=== PATIENT | male | born 1940 | race Caucasian/White ===

== ENCOUNTER → 2016-12-21 | Outpatient (CLI) | payer MEDICARE ==
[2016-12-21 11:26] LABS: ALT 46 U/L (21-72); AST 29 U/L (17-59); Alkaline Phosphatase 124 U/L (38-126); Anion Gap 10 mmol/L; Blood Urea Nitrogen 18 mg/dL (9-20); Calcium 9.3 mg/dL (8.4-10.2); Carbon Dioxide 30 mmol/L (22-30); Chloride 102 mmol/L (98-107); Cholesterol 166 mg/dL (<200); Glucose 98 mg/dL (74-99); HDL Cholesterol 75 mg/dL (40-60); Non-African American GFR(MDRD) >60 (>60 ml/min/1.73 sqM); Potassium 4.6 mmol/L (3.5-5.1); Sodium 142 mmol/L (137-145); Total Bilirubin 1.1 mg/dL (0.2-1.3); Total Protein 7.1 g/dL (6.3-8.2); Triglycerides 110 mg/dL (<150)
== END | disposition home or self-care (01) ==
LOC: LABWHC1 08:47
PROVIDERS: ATTEND Internal Medicine
DX: E03.9 Hypothyroidism, unspecified (principal); E78.5 Hyperlipidemia, unspecified; E55.9 Vitamin D deficiency, unspecified
CPT/HCPCS: 36415; 80053; 80061; 82306; 84439; 84443; 84481

== ENCOUNTER → 2016-12-21 | Outpatient (CLI) | payer MEDICARE ==
[2016-12-21 09:29] LABS: Anisocytosis Slight; Basophils % (A) 1 %; CH 25.7; CHCM 30.4; Eosinophils # (A) 0.3 k/uL (0-0.7); Eosinophils % (A) 5 %; HCT 34.3 % (39.0-53.0); HGB 10.4 gm/dL (13.0-17.5); Hypochromasia Marked; Luc # (Auto) 0.24; Luc % (Auto) 4; Lymphocytes # (A) 0.9 k/uL (1.0-4.8); Lymphocytes % (A) 16 %; MCH 25.8 pg (25.0-35.0); MCHC 30.4 g/dL (31.0-37.0); MCV 84.7 fL (80.0-100.0); Mean Platelet Volume 6.7; Monocytes # (A) 0.4 k/uL (0-1.0); Monocytes % (A) 8 %; Neutrophils # (A) 3.7 k/uL (1.3-7.7); Neutrophils % (A) 66 %; Poikilocytosis Slight; RBC 4.05 m/uL (4.30-5.90); RDW 16.1 % (11.5-15.5); WBC 5.6 k/uL (3.8-10.6); WBC (Perox) 5.86
== END | disposition home or self-care (01) ==
LOC: LABPAT 08:45
PROVIDERS: ATTEND Urology
DX: Z01.812 Encounter for preprocedural laboratory examination (principal); E03.9 Hypothyroidism, unspecified; R35.0 Frequency of micturition; N40.1 Benign prostatic hyperplasia with lower urinary tract symptoms
CPT/HCPCS: 36415; 80053; 80061; 82306; 84439; 84443; 84481; 85025; 87086

== ENCOUNTER 2016-12-30 06:03 | Day surgery (SDC) | payer MEDICARE ==
[2016-12-27 12:14] VITALS: BMI 25.3
[~2016-12-30 06:03] MED LIST: FAMOTIDINE 20 MG/2 ML VIAL IV PRN; GENTAMICIN 120 MG in SODIUM CHLORIDE 0.9% 100 ML IVPB ONE; HYDROmorphone 1 MG/ML 1 ML SYRINGE IVP PRN; LACTATED RINGERS 1,000 ML IV SCH; LIDOCAINE 1% 20 ML VIAL (10MG/ML) FOR IV START INTRADERMA PRN; ONDANSETRON 4 MG/2 ML VIAL IVP PRN; ceFAZolin 2 GM in SODIUM CHLORIDE 0.9% 100 ML IVPB ONE
[2016-12-30] MEDS ORDERED: diphenhydrAMINE 50 MG/ML 1 ML VIAL ONE (07:36)
[2016-12-30] MEDS ORDERED: MIDAZOLAM 2 MG/2 ML VIAL ONE (07:36)
[2016-12-30] MEDS ORDERED: PROPOFOL 10 MG/ML 20 ML VIAL IV ONE (07:36)
[2016-12-30 09:27] VITALS: TEMP 97
--- NOTE | 2016-12-30 09:32 | P.OP ---
Date of Procedure: 12/30/16 Preoperative Diagnosis: BPH with Obstruction Postoperative Diagnosis: Same Procedure(s) Performed: Cystoscopy, Bipolar Transurethral Resection of Prostate (TURP) Anesthesia: spinal Surgeon: Chadwick Cali Estimated Blood Loss (ml): 50 IV fluids (ml): 700 Pathology: other (Prostate tissue) Condition: stable Disposition: PACU Indications for Procedure: The patient is a 76-year-old white male with a history of BPH. He recently developed postoperative urinary retention. He is taking finasteride, along with tamsulosin 0.8 mg daily, but he continues to empty his bladder incompletely. In view of this, he has elected to undergo a TURP. Operative Findings: Bilobar BPH. Description of Procedure: The patient was taken in the operating room and placed in the dorsolithotomy position after being given a spinal anesthetic, The external genitalia was prepped and draped sterilely. The 25-Kittitian ACMI resectoscope sheath was introduced into the bladder. The bladder was inspected. Both ureteral orifices were of normal anatomic location and configuration, and both were well away from the vesical neck. No tumors or foreign bodies were seen. Examination of the prostate revealed complete obstruction with a bilobar configuration. Using the bipolar cutting loop, the lateral lobes were resected down to the surgical capsule. The floor of the prostate was then resected, proximal to the verumontanum. Lastly, and the remaining anterior tissue was resected. The prostatic fossa was then carefully examined. Any remaining apical tissue was carefully resected. The resection was carried down to the surgical capsule in all 4 quadrants. The prostatic fossa was then carefully examined, and any areas of bleeding were controlled with electrocautery. Excellent hemostasis was attained. The resectoscope was withdrawn into the bulbous urethra. The external urinary sphincter remained intact. The prostatic fossa was open. The [employer] evacuator was used to remove all prostate chips from the bladder. These were saved and sent for pathologic examination. The resectoscope was removed, and an 18 Kittitian Miller catheter was placed. The return was essentially clear. The patient tolerated the procedure well was taken to the recovery room in stable condition.
[2016-12-30 09:45] VITALS: RESP 16
[2016-12-30] MEDS ORDERED: LACTATED RINGERS 1,000 ML IV ONE (10:47)
[2016-12-30] MEDS ORDERED: PRAMIPEXOLE 0.5 MG TAB PO STA (11:40)
[2016-12-30 12:19] VITALS: BP 154/81; PULSE 86
== END 2016-12-30 12:55 | disposition home or self-care (01) ==
LOC: OR 06:03
PROVIDERS: ATTEND Urology
DX: N40.1 Benign prostatic hyperplasia with lower urinary tract symptoms (principal); N13.8 Other obstructive and reflux uropathy; R33.8 Other retention of urine; I10 Essential (primary) hypertension; E78.5 Hyperlipidemia, unspecified; J44.9 Chronic obstructive pulmonary disease, unspecified; E03.9 Hypothyroidism, unspecified; M19.90 Unspecified osteoarthritis, unspecified site; K21.9 Gastro-esophageal reflux disease without esophagitis; F32.9 Major depressive disorder, single episode, unspecified; G25.81 Restless legs syndrome; F41.9 Anxiety disorder, unspecified; I25.2 Old myocardial infarction; Z79.82 Long term (current) use of aspirin; Z79.1 Long term (current) use of non-steroidal anti-inflammatories (NSAID); Z79.899 Other long term (current) drug therapy; Z87.891 Personal history of nicotine dependence; Z98.52 Vasectomy status
CPT/HCPCS: 52601; 88305; J2250; J1200; J0690; J2405; J1580; J2704

== ENCOUNTER 2017-02-22 22:18 | Inpatient (IN) | payer MEDICARE ==
[2017-02-22 23:32] LABS: Anisocytosis Slight; Basophils # (A) 0.1 k/uL (0-0.2); Basophils % (A) 1 %; CH 22.5; CHCM 29.6; Eosinophils # (A) 0.2 k/uL (0-0.7); Eosinophils % (A) 4 %; HCT 20.7 % (39.0-53.0); HDW 4.09; Hypochromasia Marked; Luc # (Auto) 0.22; Luc % (Auto) 4; Lymphocytes # (A) 1.9 k/uL (1.0-4.8); Lymphocytes % (A) 33 %; MCH 22.5 pg (25.0-35.0); MCHC 29.5 g/dL (31.0-37.0); Mean Platelet Volume 6.3; Microcytosis Slight; Monocytes # (A) 0.4 k/uL (0-1.0); Monocytes % (A) 7 %; Neutrophils # (A) 2.9 k/uL (1.3-7.7); Neutrophils % (A) 51 %; Poikilocytosis Moderate; RBC 2.71 m/uL (4.30-5.90); RDW 16.6 % (11.5-15.5); WBC 5.7 k/uL (3.8-10.6); WBC (Perox) 5.75
[2017-02-22 23:37] LABS: HGB 6.1 gm/dL (13.0-17.5); MCV 76.2 fL (80.0-100.0)
[2017-02-22 23:41] LABS: ALT 24 U/L (21-72); AST 19 U/L (17-59); Alkaline Phosphatase 91 U/L (38-126); Anion Gap 8 mmol/L; Blood Urea Nitrogen 19 mg/dL (9-20); Calcium 8.9 mg/dL (8.4-10.2); Carbon Dioxide 28 mmol/L (22-30); Chloride 100 mmol/L (98-107); Glucose 98 mg/dL (74-99); Non-African American GFR(MDRD) >60 (>60 ml/min/1.73 sqM); Potassium 4.5 mmol/L (3.5-5.1); Sodium 136 mmol/L (137-145); Total Bilirubin 0.6 mg/dL (0.2-1.3); Total Protein 6.7 g/dL (6.3-8.2)
--- NOTE | 2017-02-22 23:58 | ED ---
Recheck HPI - General Chief Complaint: Recheck/Abnormal Lab/Rx Stated Complaint: poss blood transfusion Time Seen by Provider: 02/22/17 22:55 Source: patient, family Mode of arrival: wheelchair Limitations: no limitations - History of Present Illness Initial Comments: This patient is a 76-year-old man, sent in by his primary physician after his lab tests showed a hemoglobin of 6.1. The patient states that he had gone to see Dr. Gutierrez because he had been feeling fatigued, having a lot of exertional dyspnea. The patient does note that he had had some blood with bowel movements about 3-4 days ago but states that this had resolved and he was not really too concerned about it. He was called back to come in because his blood counts were low. Patient is denying fever or chills, chest pain, dyspnea, palpitations or syncope. He does have some exertional dyspnea. He denies abdominal pain. He is not currently having any bright red blood or dark tarry bowel movements. MD Complaint: abnormal lab -: hour(s) Returns Today for: Called Because of Abnormal Lab/Test Symptoms Since Prior Visit: no new symptoms - Related Data Home Medications Medication Instructions Recorded Confirmed ALPRAZolam [Xanax] 0.25 mg PO TID PRN 12/03/15 02/22/17 Albuterol Sulfate [Proair Hfa] 1 puff INHALATION RT-QID PRN 12/03/15 02/22/17 Aspirin 81 mg PO DAILY 12/03/15 02/22/17 Atorvastatin [Lipitor] 80 mg PO DAILY 12/03/15 02/22/17 Finasteride [Proscar] 5 mg PO DAILY 12/03/15 02/22/17 Gabapentin [Neurontin] 600 mg PO HS 12/03/15 02/22/17 Hydrochlorothiazide 12.5 mg PO DAILY 12/03/15 02/22/17 Mirtazapine 45 mg PO HS 12/03/15 02/22/17 Multivitamin [Men's Multi-Vitamin] 1 tab PO DAILY 12/03/15 02/22/17 Pantoprazole Sodium 20 mg PO DAILY 12/03/15 02/22/17 Pramipexole [Mirapex] 0.5 mg PO TID PRN 12/03/15 02/22/17 Ubidecarenone [Co Q-10] 200 mg PO DAILY 12/03/15 02/22/17 Levothyroxine Sodium [Levoxyl] 150 mcg PO DAILY 10/08/16 02/22/17 Ramipril 10 mg PO DAILY 10/08/16 02/22/17 Aclidinium [place] [Tudorza 1 puff INHALATION RT-BID 02/22/17 02/22/17 Pressair] FLUoxetine HCL [PROzac] 40 mg PO DAILY 02/22/17 02/22/17 Allergies Allergy/AdvReac Type Severity Reaction Status Date / Time Pepperoni AdvReac Nausea & Uncoded 02/22/17 23:15 Vomiting Review of Systems ROS Statement: Those systems with pertinent positive or pertinent negative responses have been documented in the HPI. ROS Other: All systems not noted in ROS Statement are negative. Constitutional: Denies: fever, chills Respiratory: Denies: cough, dyspnea, wheezes Cardiovascular: Reports: as per HPI, dyspnea on exertion. Denies: chest pain, palpitations, orthopnea, edema, syncope Gastrointestinal: Reports: as per HPI, hematochezia. Denies: abdominal pain, nausea, vomiting, diarrhea, constipation, melena Genitourinary: Denies: dysuria, hematuria Musculoskeletal: Denies: back pain Skin: Denies: rash Neurological: Denies: headache, weakness, numbness Psychiatric: Denies: anxiety Past Medical History Past Medical History: COPD, Eye Disorder, GERD/Reflux, Hyperlipidemia, Hypertension, Osteoarthritis (OA), Prostate Disorder, Thyroid Disorder Additional Past Medical History / Comment(s): Restless leg syndrome. NEUROPATHY LEGS. SVT(ABLATION DONE), HOME O2 2 LITER N/C. SL GLAUCOMA. HEMORRHOIDS. BPH W/ OBSTRUCTION. History of Any Multi-Drug Resistant Organisms: None Reported Past Surgical History: Adenoidectomy, Cardiac Ablation, Cholecystectomy, Orthopedic Surgery, Tonsillectomy Additional Past Surgical History / Comment(s): cardiac ablation for SVT, mole removed from neck, R elbow surgery (tennis elbow), colonoscopy, circumcism, Vasectomy, R testicle surgery for infection, bilateral carpal tunnel releases. Past Anesthesia/Blood Transfusion Reactions: Family History of Problems w/ Anesthesia Additional Past Anesthesia/Blood Transfusion Reaction / Comment(s): DAUGHTER TAKES LONG TIME TO AWAKEN. Past Psychological History: Anxiety, Depression Additional Psychological History / Comment(s): Pt 'S DAUGHTER KENNA LIVES WITH HIM AND OTHER FAMILY MEMBERS HELP OUT WELL. Smoking Status: Former smoker Past Alcohol Use History: Daily Additional Past Alcohol Use History / Comment(s): Pt states he started smoking at age 16 (1957)and quit . was a 1 ppd smoker. Past Drug Use History: None Reported - Past Family History Father Family Medical History: No Reported History Additional Family Medical History / Comment(s): Father was healthy and at age 84 yrs. Mother Family Medical History: Cancer Additional Family Medical History / Comment(s): Mother was healthy and in her 70's General Exam Limitations: no limitations General appearance: alert, in no apparent distress Head exam: Present: atraumatic, normocephalic Eye exam: Present: other (Conjunctival pallor). Absent: scleral icterus, conjunctival injection ENT exam: Present: mucous membranes moist, other ([place] pallor) Neck exam: Present: normal inspection Respiratory exam: Present: normal lung sounds bilaterally. Absent: respiratory distress, wheezes, rales, rhonchi, stridor Cardiovascular Exam: Present: regular rate, normal rhythm, normal heart sounds. Absent: systolic murmur, diastolic murmur, rubs, gallop GI/Abdominal exam: Present: soft. Absent: distended, tenderness, guarding, rebound, mass, pulsatile mass, hernia Extremities exam: Present: normal inspection, normal capillary refill. Absent: pedal edema, calf tenderness Back exam: Present: normal inspection. Absent: CVA tenderness (R), CVA tenderness (L) Neurological exam: Present: alert Skin exam: Present: warm, dry, intact, pallor. Absent: rash Course Vital Signs 02/22/17 22:37 Temperature 98.6 F Pulse Rate 78 Respiratory 20 Rate Blood Pressure 99/65 O2 Sat by Pulse 96 Oximetry Medical Decision Making - Lab Data Result diagrams: 02/22/17 23:03 02/22/17 23:03 Lab Results 02/22/17 02/22/17 02/22/17 Range/Units 23:03 23:03 23:03 WBC 5.7 (3.8-10.6) k/uL RBC 2.71 L (4.30-5.90) m/uL Hgb 6.1 L* D (13.0-17.5) gm/dL Hct 20.7 L (39.0-53.0) % MCV 76.2 L D (80.0-100.0) fL MCH 22.5 L (25.0-35.0) pg MCHC 29.5 L (31.0-37.0) g/dL RDW 16.6 H (11.5-15.5) % Plt Count 467 H (150-450) k/uL Neutrophils % 51 % Lymphocytes % 33 % Monocytes % 7 % Eosinophils % 4 % Basophils % 1 % Neutrophils # 2.9 (1.3-7.7) k/uL Lymphocytes # 1.9 (1.0-4.8) k/uL Monocytes # 0.4 (0-1.0) k/uL Eosinophils # 0.2 (0-0.7) k/uL Basophils # 0.1 (0-0.2) k/uL Hypochromasia Marked Poikilocytosis Moderate Anisocytosis Slight Microcytosis Slight PT (9.0-12.0) sec INR (<1.1) APTT (22.0-30.0) sec Sodium 136 L (137-145) mmol/L Potassium 4.5 (3.5-5.1) mmol/L Chloride 100 (98-107) mmol/L Carbon Dioxide 28 (22-30) mmol/L Anion Gap 8 mmol/L BUN 19 (9-20) mg/dL Creatinine 1.00 (0.66-1.25) mg/dL Est GFR (MDRD) Af Amer >60 (>60 ml/min/1.73 sqM) Est GFR (MDRD) Non-Af >60 (>60 ml/min/1.73 sqM) Glucose 98 (74-99) mg/dL Plasma Lactic Acid Rolan (0.7-2.0) mmol/L Calcium 8.9 (8.4-10.2) mg/dL Total Bilirubin 0.6 (0.2-1.3) mg/dL AST 19 (17-59) U/L ALT 24 (21-72) U/L Alkaline Phosphatase 91 (38-126) U/L Total Creatine Kinase 89 (55-170) U/L CK-MB (CK-2) 1.3 (0.0-2.4) ng/mL CK-MB (CK-2) Rel Index 1.5 Troponin I <0.012 (0.000-0.034) ng/mL Total Protein 6.7 (6.3-8.2) g/dL Albumin 3.9 (3.5-5.0) g/dL Blood Type Blood Type Recheck Antibody Screen Crossmatch Spec Expiration Date 02/22/17 02/22/17 02/22/17 Range/Units 23:03 23:03 23:32 WBC (3.8-10.6) k/uL RBC (4.30-5.90) m/uL Hgb (13.0-17.5) gm/dL Hct (39.0-53.0) % MCV (80.0-100.0) fL MCH (25.0-35.0) pg MCHC (31.0-37.0) g/dL RDW (11.5-15.5) % Plt Count (150-450) k/uL Neutrophils % % Lymphocytes % % Monocytes % % Eosinophils % % Basophils % % Neutrophils # (1.3-7.7) k/uL Lymphocytes # (1.0-4.8) k/uL Monocytes # (0-1.0) k/uL Eosinophils # (0-0.7) k/uL Basophils # (0-0.2) k/uL Hypochromasia Poikilocytosis Anisocytosis Microcytosis PT 10.3 (9.0-12.0) sec INR 1.0 (<1.1) APTT 19.2 L (22.0-30.0) sec Sodium (137-145) mmol/L Potassium (3.5-5.1) mmol/L Chloride (98-107) mmol/L Carbon Dioxide (22-30) mmol/L Anion Gap mmol/L BUN (9-20) mg/dL Creatinine (0.66-1.25) mg/dL Est GFR (MDRD) Af Amer (>60 ml/min/1.73 sqM) Est GFR (MDRD) Non-Af (>60 ml/min/1.73 sqM) Glucose (74-99) mg/dL Plasma Lactic Acid Rolan 1.1 (0.7-2.0) mmol/L Calcium (8.4-10.2) mg/dL Total Bilirubin (0.2-1.3) mg/dL AST (17-59) U/L ALT (21-72) U/L Alkaline Phosphatase (38-126) U/L Total Creatine Kinase (55-170) U/L CK-MB (CK-2) (0.0-2.4) ng/mL CK-MB (CK-2) Rel Index Troponin I (0.000-0.034) ng/mL Total Protein (6.3-8.2) g/dL Albumin (3.5-5.0) g/dL Blood Type O Positive Blood Type Recheck No Antibody Screen NEGATIVE Crossmatch See Detail Spec Expiration Date 02/25/2017 - 2303 - EKG Data -: EKG Interpreted by Me EKG shows normal: sinus rhythm, axis (Normal), intervals (Normal), QRS complexes (Normal), ST-T waves (Normal) Rate: normal (Rate 78 bpm) Interpretation: normal EKG Disposition Clinical Impression: Anemia Disposition: ADMITTED IP TO THIS [facility] Condition: Poor
[2017-02-23] LABS: Prothrombin Time 10.3 sec (9.0-12.0)
[2017-02-23 00:04] LABS: Partial Thromboplastin Time 19.2 sec (22.0-30.0)
[2017-02-23 00:10] LABS: Creatine Kinase 89 U/L (55-170)
[2017-02-23 00:23] LABS: Creatine Kinase MB 1.3 ng/mL (0.0-2.4); Troponin I <0.012 ng/mL (0.000-0.034)
[2017-02-23] MEDS ORDERED: ONDANSETRON 4 MG/2 ML VIAL IVP PRN (00:50)
[2017-02-23] MEDS ORDERED: NALOXONE 0.4 MG/ML 1 ML VIAL IV PRN (00:50)
[2017-02-23] MEDS ORDERED: ALBUTEROL NEBULIZED 2.5 MG/3 ML INHALATION PRN (00:52)
[2017-02-23] MEDS ORDERED: LORazepam 2 MG/ML SYRINGE IV STA ×2 (01:05→01:08)
[2017-02-23 03:06] VITALS: BMI 25.4
[2017-02-23] MEDS: SODIUM CHLORIDE 0.9% 1,000 ML IV SCH ×3 (04:51→21:10)
[2017-02-23] MEDS: ATORVASTATIN 80 MG TAB PO SCH (08:07)
[2017-02-23] MEDS: HYDROCHLOROTHIAZIDE 12.5 MG CAP PO SCH (08:08)
[2017-02-23] MEDS: LISINOPRIL 20 MG TAB PO SCH (08:08)
[2017-02-23] MEDS: LEVOTHYROXINE 75 MCG TAB PO SCH (08:08)
[2017-02-23] MEDS: PANTOPRAZOLE 40 MG/10 ML VIAL IV SCH (08:08)
[2017-02-23] MEDS: MULTIVITAMINS, THERA 1 EACH TAB PO SCH (08:08)
[2017-02-23] MEDS: FLUoxetine HCL 20 MG CAP PO SCH (08:08)
[2017-02-23] MEDS: FINASTERIDE 5 MG TAB PO SCH (08:09)
[2017-02-23] MEDS ORDERED: NON-FORMULARY DRUG (Ubidecarenone [Co Q-10] 200 MG) PO SCH (09:00)
[2017-02-23 09:57] LABS: Anisocytosis Slight; Basophils # (A) 0.1 k/uL (0-0.2); Basophils % (A) 1 %; CH 23.5; CHCM 29.9; Eosinophils # (A) 0.3 k/uL (0-0.7); Eosinophils % (A) 5 %; HCT 21.6 % (39.0-53.0); HDW 4.71; Hypochromasia Marked; Luc # (Auto) 0.17; Luc % (Auto) 3; Lymphocytes # (A) 1.2 k/uL (1.0-4.8); Lymphocytes % (A) 23 %; MCH 24.1 pg (25.0-35.0); MCHC 30.6 g/dL (31.0-37.0); MCV 78.5 fL (80.0-100.0); Mean Platelet Volume 6.5; Microcytosis Slight; Monocytes # (A) 0.4 k/uL (0-1.0); Monocytes % (A) 7 %; Neutrophils # (A) 3.3 k/uL (1.3-7.7); Neutrophils % (A) 61 %; Poikilocytosis Marked; RBC 2.75 m/uL (4.30-5.90); RDW 16.9 % (11.5-15.5); WBC 5.3 k/uL (3.8-10.6); WBC (Perox) 5.37
[2017-02-23 10:00] LABS: HGB 6.6 gm/dL (13.0-17.5)
--- NOTE | 2017-02-23 11:04 | P.CONS ---
History of Present Illness - Reason for Consult Consult date: 02/23/17 Anemia, GI bleed Requesting physician: Pedro Lorenz - History of Present Illness 76-year-old gentleman patient of Dr. Gutierrez with a past medical history of diverticulosis, remote peptic ulcer disease, CVA, TIA, O2 dependent COPD, BPH status post TURP December 2016, hyperlipidemia, hypertension, anxiety, depression, and cardiac arrhythmia. Patient presents with fatigue, weakness, dyspnea, and painless rectal bleeding over the last week burgundy in nature with a hemoglobin of 6.1. He received 1 unit of blood and current hemoglobin of 6.6. MCV 76. Platelet 467. INR 1.0. BUN 19. Creatinine 1.0. Upon review of medical records hemoglobin over the last year, averages between 10-13. He was evaluated by the GI service 1 year ago in regards to painless burgundy rectal bleeding felt to be diverticular in nature. Last colonoscopy was in 2011 with findings of moderate diverticulosis with no evidence of polyps. He has been taking intermittent NSAIDs/ibuprofen for arthritic pain as well as baby aspirin. Denies hematemesis, melena, hematuria. No weight loss or fever or chills. Review of Systems Constitutional: Denies fever, chills, sweats, weight gain, or loss. HEENT: Negative for migraines, blurred vision or loss, earaches, drainage, tinnitus, oral mucosal lesions, dysphagia, or odynophagia. Cardiac: Hyperlipidemia, hypertension, arrhythmia Negative for chest pain, arrhythmias, or palpitation. Respiratory: O2-dependent COPD Negative for shortness of breath, hemoptysis, cough, or sputum production. Gastrointestinal: See HPI for pertinent findings. Genitourinary: BPH. Negative for hematuria, urgency, frequency, polyuria, dysuria, or penile discharge. Musculoskeletal: Osteoarthritis Negative for muscle aches, swelling, arthritis, and arthralgias. Neurologic: Restless leg syndrome Negative for stroke or TIA. Endocrine: Negative for thyroid problems. Skin: Negative for rash or itching. Psychiatric: History for depression and anxiety All systems: negative (See HPI) Past Medical History Past Medical History: COPD, Eye Disorder, GERD/Reflux, Hyperlipidemia, Hypertension, Osteoarthritis (OA), Prostate Disorder, Thyroid Disorder Additional Past Medical History / Comment(s): Restless leg syndrome. NEUROPATHY LEGS. SVT(ABLATION DONE), HOME O2 2 LITER N/C. SL GLAUCOMA. HEMORRHOIDS. BPH W/ OBSTRUCTION. diverticulitis History of Any Multi-Drug Resistant Organisms: None Reported Past Surgical History: Adenoidectomy, Cardiac Ablation, Cholecystectomy, Orthopedic Surgery, Tonsillectomy Additional Past Surgical History / Comment(s): cardiac ablation for SVT, mole removed from neck, R elbow surgery (tennis elbow), colonoscopy, circumcism, Vasectomy, R testicle surgery for infection, bilateral carpal tunnel releases. Past Anesthesia/Blood Transfusion Reactions: Family History of Problems w/ Anesthesia Additional Past Anesthesia/Blood Transfusion Reaction / Comm: DAUGHTER TAKES LONG TIME TO AWAKEN. Past Psychological History: Anxiety, Depression Additional Psychological History / Comment(s): Pt 'S DAUGHTER KENNA LIVES WITH HIM AND OTHER FAMILY MEMBERS HELP OUT WELL. Smoking Status: Former smoker Past Alcohol Use History: Daily Additional Past Alcohol Use History / Comment(s): Pt states he started smoking at age 16 (1957)and quit . was a 1 ppd smoker. Past Drug Use History: None Reported - Past Family History Father Family Medical History: No Reported History Additional Family Medical History / Comment(s): Father was healthy and at age 84 yrs. Mother Family Medical History: Cancer Additional Family Medical History / Comment(s): Mother was healthy and in her 70's Brother(s) History Unknown: Yes Sister(s) Family Medical History: Osteoarthritis (OA) Medications and Allergies Home Medications Medication Instructions Recorded Confirmed Type ALPRAZolam [Xanax] 0.25 mg PO TID PRN 12/03/15 02/22/17 History Albuterol Sulfate [Proair Hfa] 1 puff INHALATION RT-QID PRN 12/03/15 02/22/17 History Aspirin 81 mg PO DAILY 12/03/15 02/22/17 History Atorvastatin [Lipitor] 80 mg PO DAILY 12/03/15 02/22/17 History Finasteride [Proscar] 5 mg PO DAILY 12/03/15 02/22/17 History Gabapentin [Neurontin] 600 mg PO HS 12/03/15 02/22/17 History Hydrochlorothiazide 12.5 mg PO DAILY 12/03/15 02/22/17 History Mirtazapine 45 mg PO HS 12/03/15 02/22/17 History Multivitamin [Men's Multi-Vitamin] 1 tab PO DAILY 12/03/15 02/22/17 History Pantoprazole Sodium 20 mg PO DAILY 12/03/15 02/22/17 History Pramipexole [Mirapex] 0.5 mg PO TID PRN 12/03/15 02/22/17 History Ubidecarenone [Co Q-10] 200 mg PO DAILY 12/03/15 02/22/17 History Levothyroxine Sodium [Levoxyl] 150 mcg PO DAILY 10/08/16 02/22/17 History Ramipril 10 mg PO DAILY 10/08/16 02/22/17 History Aclidinium [place] [Tudorza 1 puff INHALATION RT-BID 02/22/17 02/22/17 History Pressair] FLUoxetine HCL [PROzac] 40 mg PO DAILY 02/22/17 02/22/17 History Allergies Allergy/AdvReac Type Severity Reaction Status Date / Time Pepperoni AdvReac Nausea & Uncoded 02/22/17 23:15 Vomiting Physical Exam Vitals: Vital Signs Temp Pulse Pulse Resp BP BP Pulse Ox 02/23/17 08:00 97.2 F L 69 16 130/60 95 02/23/17 04:46 98.6 F 74 16 122/60 95 02/23/17 04:22 97.4 F L 79 18 143/70 94 L 02/23/17 02:56 98.3 F 78 16 92/47 98 02/23/17 02:26 97.3 F L 79 16 108/61 94 L 02/23/17 02:16 97.1 F L 77 18 96/50 94 L 02/23/17 01:10 85 16 121/66 93 L Intake and Output 02/22/17 02/23/17 02/23/17 22:59 06:59 14:59 Intake Total 310 600 Output Total 100 Balance 210 600 Intake: IV 600 Sodium Chloride 0.9% 1, 600 000 ml @ 100 mls/hr IV . Q10H [facility] Rx#:[id number] Blood Product 310 Rc As-1 Unit 310 [id number] Output: Urine 100 Other: Voiding Method Urinal Urinal Weight 80.5 kg General appearance: The patient is alert, oriented, in no acute distress. HET: Head is normocephalic and atraumatic. Pupils are equal and reactive. Oropharynx is clear without lesions. Neck: Supple without lymphadenopathy. Trachea midline. Heart: S1 S2. Lungs: No crackles or wheezes are heard. Slight diminishment in bases bilaterally. Abdomen: Soft, nontender, nondistended with bowel sounds. No peritoneal signs. No palpable organomegaly or masses. Extremities: Normal skin color and turgor. No cyanosis, rash, ulceration, clubbing, or edema. Radial and pedal pulses are 2/4 bilaterally. Neurological: No focal deficits. Strength and sensation are grossly intact. Results CBC & Chem 7: 02/23/17 09:15 02/22/17 23:03 Labs: Abnormal Lab Results - Last 24 Hours (Table) 02/23/17 Range/Units 09:15 RBC 2.75 L (4.30-5.90) m/uL Hgb 6.6 L* (13.0-17.5) gm/dL Hct 21.6 L (39.0-53.0) % MCV 78.5 L (80.0-100.0) fL MCH 24.1 L (25.0-35.0) pg MCHC 30.6 L (31.0-37.0) g/dL RDW 16.9 H (11.5-15.5) % Assessment and Plan (1) GI bleed Narrative/Plan: Suspect diverticular in nature however other pathology cannot be excluded including upper GI source. Status: Acute (2) Diverticulosis of colon Status: Acute (3) Symptomatic anemia Status: Acute (4) Acute blood loss anemia Status: Acute Plan: 1. EGD colonoscopy tomorrow. 2. CBC every 6 hours. 3. Blood transfusion to keep hemoglobin preferably greater than 8. 4. IV Protonix 40 mg daily. 5. Clear liquid diet today, nothing by mouth after midnight. The operator technician has discussed the risks, benefits and alternative therapies for the above-mentioned procedure and for both sedation/analgesia as well as necessary blood product administration, if indicated, as they pertain to this patient. The patient has indicated understanding and acceptance of the risks and procedures discussed. Thank you for this kind referral and the opportunity to participate in the care of your patient. This consultation was discussed with Dr. Park. The impression and plan of care have been directed as dictated.
[2017-02-23] MEDS: TIOTROPIUM 18 MCG/PUFF INHALER INHALATION SCH (11:11)
[2017-02-23 12:38] LABS: Anisocytosis Slight; Basophils # (A) 0.1 k/uL (0-0.2); Basophils % (A) 1 %; CH 23.5; CHCM 29.9; Eosinophils # (A) 0.3 k/uL (0-0.7); Eosinophils % (A) 5 %; HDW 4.68; Hypochromasia Marked; Luc # (Auto) 0.22; Luc % (Auto) 4; Lymphocytes # (A) 1.3 k/uL (1.0-4.8); Lymphocytes % (A) 24 %; MCH 23.5 pg (25.0-35.0); MCV 78.4 fL (80.0-100.0); Mean Platelet Volume 6.8; Microcytosis Slight; Monocytes # (A) 0.4 k/uL (0-1.0); Monocytes % (A) 8 %; Neutrophils # (A) 3.1 k/uL (1.3-7.7); Neutrophils % (A) 58 %; Poikilocytosis Marked; RBC 2.93 m/uL (4.30-5.90); RDW 16.8 % (11.5-15.5); WBC 5.3 k/uL (3.8-10.6); WBC (Perox) 5.56
[2017-02-23 12:39] LABS: HGB 6.9 gm/dL (13.0-17.5)
[2017-02-23] MEDS ORDERED: PEG 3350-NA SULF,BICARB,CL/KCL 4,000 ML BOTTLE PO ONE (16:00)
--- NOTE | 2017-02-23 17:29 | HP ---
DATE OF ADMISSION: 02/23/2017 CHIEF COMPLAINT: Weak, tired, dark stools. HISTORY OF PRESENTING COMPLAINT: This is a pleasant 76 -year-old patient of Dr. Leonardo Gutierrez with rather extensive medical history. Patient's chronic stable medical conditions include COPD, GERD, hyperlipidemia, hypertension, osteoarthritis, BPH, on home oxygen 2 liters for COPD , restless leg syndrome. Patient presented with black stools for last few days. Feels tired, dizzy, lightheaded. Denies any abdominal pain. Patient does take aspirin at home. The patient hemoglobin came back to be 6.1 and patient was ordered a unit of blood. The patient's daughter is at the bedside. REVIEW OF SYSTEMS: CONSTITUTIONAL: Weak and tired. HEENT: None except for decreased hearing. RESPIRATORY: Some shortness of breath. CARDIOVASCULAR: None. GASTROINTESTINAL: Black stools. GENITOURINARY: None. MUSCULOSKELETAL: Aches and pains in different joints. Dermatological: Some bruising. HEMATOLOGICAL: As above. LYMPHATICS: None. PSYCHIATRY: None. NEUROLOGICAL: None. PAST MEDICAL HISTORY: COPD, stroke, hyperlipidemia, hypertension, osteoarthritis, SVT ablation, home oxygen 2 liters, TIAs, benign prostatic hypertrophy, hypothyroidism, restless leg syndrome, peripheral neuropathy, BPH, diverticulitis. PAST SURGICAL HISTORY: Adenoidectomy, cardiac ablation, cholecystectomy, tonsillectomy, right elbow surgery, circumcision, vasectomy, the right testicle surgical infection, bilateral carpal tunnel release. Past psych history: Anxiety, depression. SOCIAL HISTORY: Patient lives with daughter Elisha. The patient started smoking the age of 16 in 1957, quit in August of last year, smoked a pack a day. HOME MEDICATIONS: 1. CO-Q10 1 mg a day. 2. Ramipril 10 mg p.o. daily. 3. Mirapex 0.5 p.o. t.i.d. p.r.n. 4. Protonix 20 mg p.o. daily. 5. Multivitamin 1 tablet p.o. daily. 6. Mirtazapine 145 mg p.o. q.h.s. 7. Synthroid 150 mcg p.o. daily. 8. Hydrochlorothiazide 5 p.o. daily. 9. Neurontin 600 mg p.o. q.h.s. 10. Proscar 5 mg p.o. b.i.d. 11. Lipitor 80 mg p.o. daily. 12. Aspirin 81 mg p.o. daily, 13. Chloride 1 puff q.4 q.i.d. p.r.n. 14. Albuterol 0.25 mg p.o. t.i.d. ALLERGIES: PEPPERONI. On examination, vital signs on presentation: Temperature 98.6, pulse 78, respirations 20, blood pressure 99/65, pulse ox 96% on 2 liters. GENERAL APPEARANCE: Average build, lying in bed, tired appearing. EYES: Pupils equal. Conjunctivae are pale. HEENT: External appearance of nose and ears normal. Oral cavity normal. NECK: JVD not raised. Mass not palpable. RESPIRATORY: Effort normal. LUNGS: Diminished breath sounds. CARDIOVASCULAR: First and second sounds normal. No edema. ABDOMEN: Soft, nontender. Liver and spleen not palpable. LYMPHATIC: No lymph nodes palpable in neck or axillae. PSYCHIATRY: Alert and oriented x3. Mood and affect somewhat low. INVESTIGATIONS: Potassium 5.7, hemoglobin 6.1, platelets of ( ), after 1 unit of blood repeat was 6.6. Potassium 4.5. BUN and creatinine are normal. ASSESSMENT: 1. Acute gastrointestinal bleed in a patient who does take a baby aspirin need to rule out gastric source. 2. Chronic obstructive pulmonary disease in an ex-smoker. 3. Gastroesophageal reflux disease. 4. Hyperlipidemia. 5. Gastroesophageal reflux disease. 6. Essential hypertension. 7. Primary osteoarthritis of multiple joints, bilateral. 8. Benign prostatic hypertrophy. 9. Chronic hypoxic respiratory failure on 2 liters of oxygen at home from underlying chronic obstructive pulmonary disease. 10. Restless leg syndrome. 11. CODE STATUS: FULL CODE. PLAN: Home medications are resumed. Patient's aspirin has been held. Patient will be put on PPI. Gastroenterology was consulted. Repeat endoscopy. Care was discussed with the patient and daughter at the bedside. Questions were answered. Prognosis guarded.
[2017-02-23] MEDS: PRAMIPEXOLE 0.5 MG TAB PO PRN (17:41)
[2017-02-23 18:44] LABS: Anisocytosis Slight; Basophils # (A) 0.1 k/uL (0-0.2); Basophils % (A) 1 %; CH 24.6; CHCM 30.6; Eosinophils # (A) 0.3 k/uL (0-0.7); Eosinophils % (A) 6 %; HCT 26.4 % (39.0-53.0); HDW 4.84; Hypochromasia Marked; Luc # (Auto) 0.13; Luc % (Auto) 3; Lymphocytes # (A) 1.3 k/uL (1.0-4.8); Lymphocytes % (A) 29 %; MCH 25.6 pg (25.0-35.0); MCHC 31.9 g/dL (31.0-37.0); MCV 80.2 fL (80.0-100.0); Mean Platelet Volume 7.2; Microcytosis Slight; Monocytes # (A) 0.3 k/uL (0-1.0); Monocytes % (A) 7 %; Neutrophils # (A) 2.5 k/uL (1.3-7.7); Neutrophils % (A) 54 %; Poikilocytosis Marked; RDW 16.8 % (11.5-15.5); WBC 4.5 k/uL (3.8-10.6)
[2017-02-23 18:52] LABS: HGB 8.4 gm/dL (13.0-17.5)
[2017-02-23] MEDS: MIRTAZAPINE 45 MG TABLET PO SCH (21:09)
[2017-02-23] MEDS: GABAPENTIN 300 MG CAP PO SCH (21:09)
[2017-02-23] MEDS: ALPRAZolam 0.25 MG TAB PO PRN (21:17)
[2017-02-24 01:25] LABS: Anisocytosis Slight; Basophils # (A) 0.1 k/uL (0-0.2); Basophils % (A) 3 %; CH 24.4; CHCM 30.8; Eosinophils # (A) 0.3 k/uL (0-0.7); Eosinophils % (A) 6 %; HCT 26.3 % (39.0-53.0); HDW 4.88; HGB 7.9 gm/dL (13.0-17.5); Hypochromasia Marked; Luc # (Auto) 0.19; Luc % (Auto) 4; Lymphocytes # (A) 1.6 k/uL (1.0-4.8); Lymphocytes % (A) 31 %; MCH 23.8 pg (25.0-35.0); MCHC 30.1 g/dL (31.0-37.0); Mean Platelet Volume 6.4; Microcytosis Slight; Monocytes # (A) 0.4 k/uL (0-1.0); Monocytes % (A) 7 %; Neutrophils # (A) 2.5 k/uL (1.3-7.7); Neutrophils % (A) 49 %; Poikilocytosis Marked; RBC 3.33 m/uL (4.30-5.90); RDW 16.8 % (11.5-15.5); WBC 5.1 k/uL (3.8-10.6); WBC (Perox) 5.28
[2017-02-24 06:39] LABS: Anisocytosis Slight; Aty Lym Flag Slight; Basophils % (A) 1 %; CH 24.4; CHCM 30.7; Eosinophils # (A) 0.3 k/uL (0-0.7); Eosinophils % (A) 7 %; HCT 24.7 % (39.0-53.0); HDW 4.89; HGB 7.6 gm/dL (13.0-17.5); Hypochromasia Marked; Luc # (Auto) 0.21; Luc % (Auto) 5; Lymphocytes # (A) 1.1 k/uL (1.0-4.8); Lymphocytes % (A) 23 %; MCH 24.4 pg (25.0-35.0); MCHC 30.7 g/dL (31.0-37.0); MCV 79.5 fL (80.0-100.0); Mean Platelet Volume 6.5; Microcytosis Slight; Monocytes # (A) 0.4 k/uL (0-1.0); Monocytes % (A) 8 %; Neutrophils # (A) 2.6 k/uL (1.3-7.7); Neutrophils % (A) 56 %; Poikilocytosis Marked; RDW 16.8 % (11.5-15.5); WBC 4.6 k/uL (3.8-10.6); WBC (Perox) 4.86
[2017-02-24 06:45] LABS: Anion Gap 7 mmol/L; Blood Urea Nitrogen 13 mg/dL (9-20); Calcium 8.7 mg/dL (8.4-10.2); Carbon Dioxide 28 mmol/L (22-30); Chloride 104 mmol/L (98-107); Glucose 77 mg/dL (74-99); Non-African American GFR(MDRD) >60 (>60 ml/min/1.73 sqM); Potassium 4.2 mmol/L (3.5-5.1); Sodium 139 mmol/L (137-145)
[2017-02-24] MEDS: SODIUM CHLORIDE 0.9% 1,000 ML IV SCH ×2 (06:49→13:02)
[2017-02-24] MEDS: PANTOPRAZOLE 40 MG/10 ML VIAL IV SCH (08:08)
[2017-02-24] MEDS: LEVOTHYROXINE 75 MCG TAB PO SCH (08:09)
[2017-02-24] MEDS: FLUoxetine HCL 20 MG CAP PO SCH (08:09)
[2017-02-24] MEDS: HYDROCHLOROTHIAZIDE 12.5 MG CAP PO SCH (08:09)
[2017-02-24] MEDS: ATORVASTATIN 80 MG TAB PO SCH (08:09)
[2017-02-24] MEDS: FINASTERIDE 5 MG TAB PO SCH (08:09)
[2017-02-24] MEDS: MULTIVITAMINS, THERA 1 EACH TAB PO SCH (08:09)
[2017-02-24] MEDS: LISINOPRIL 20 MG TAB PO SCH (08:11)
[2017-02-24] MEDS: TIOTROPIUM 18 MCG/PUFF INHALER INHALATION SCH (11:43)
[2017-02-24] MEDS: ALPRAZolam 0.25 MG TAB PO PRN (13:00)
[2017-02-24] MEDS ORDERED: IV FLUID CONTINUATION 1,000 ML IV ONE (14:16)
[2017-02-24] MEDS ORDERED: PROPOFOL 10 MG/ML 20 ML VIAL IV ONE (14:18)
[2017-02-24] MEDS ORDERED: fentaNYL (PF) 50 MCG/ML 2 ML AMP ONE (14:18)
[2017-02-24] MEDS ORDERED: MIDAZOLAM 2 MG/2 ML VIAL ONE (14:18)
--- NOTE | 2017-02-24 15:04 | P.PCN ---
Date of Procedure: 02/24/17 Procedure(s) Performed: Procedure: 1. Esophagogastroduodenoscopy and biopsy. 2. Total colonoscopy.. Preoperative diagnosis: Symptomatic anemia. Postoperative diagnosis: 1. Sliding hiatal hernia and short Garcia's esophagus but no obvious esophagitis or complicated reflux disease. 2. Mild gastritis. 3. Sigmoid diverticulosis. 4. Low-grade internal hemorrhoids. No active bleeding noted at the time of this exam. Preparation: GoLYTELY prep. Sedation: Was provided by anesthesia. Brief clinical history: The patient is a 76-year-old male with a past medical history of diverticulosis, remote peptic ulcer disease, CVA, TIA, O2 dependent COPD, BPH status post TURP December 2016, hyperlipidemia, hypertension, anxiety, depression, and cardiac arrhythmia, who presented with fatigue, weakness, dyspnea, and painless rectal bleeding over the last week burgundy in nature with a hemoglobin of 6.1 for which he was transfused. Baseline hemoglobin was between 10 and 13. Last colonoscopy in 2011 that showed diverticulosis. He has been taking intermittently NSAIDs for arthritic pain and baby aspirin but has no upper GI complaints or any hematemesis or melena. The details are summarized in the history and physical and dictated consultation and progress notes. Procedure: With the patient on his left lateral decubitus position and after informed consent and adequate sedation, I passed the Olympus-GIF 160 video upper endoscope the cricopharyngeus down the esophagus. GE junction was around 35-36 cm from the incisors and the tubular esophagus continues for another 3 cm or so defining a segment of short Garcia's esophagus. The esophagus proximal to the GE junction did not show any evidence of inflammation. There were no strictures or ulcers. The Garcia's segment was somewhat friable and there was some bleeding after the biopsies were obtained. There was a small sliding hiatal hernia then the endoscope was advanced to the rest of the stomach which was insufflated with air and inspected in detail including the retroflex view in the cardia. There was some mottling and erythema in the antrum but no ulcers or erosions. Pyloric channel, duodenal bulb, post bulbar area and descending duodenum appeared within normal limits. Because of his anemia, I obtained multiple biopsies from the duodenum in addition to biopsies from the antrum as well as biopsies from the Garcia's segment then the endoscope was withdrawn. I then proceeded with the colonoscopy. Perianal area did not show any fissures or fistulas. There were no masses felt on digital rectal examination. The Olympus CFQ 160L video colonoscope was then inserted in the rectum in the usual fashion and advanced to the cecum. There were a few scattered diverticular orifices in the sigmoid with no evidence of acute diverticulitis or strictures. The mucosa appeared healthy. There was no evidence of angiodysplasias or bleeding. I retroflexed the endoscope in the rectum before the endoscope was withdrawn. Low-grade internal hemorrhoids were noted but there was no bleeding. The patient tolerated the procedure well. Plan: The patient was reassured. I discussed with his family. Consideration can be given for a capsule endoscopy if he continues to manifest anemia and evidence of ongoing GI bleeding.
[2017-02-24] MEDS: PRAMIPEXOLE 0.5 MG TAB PO PRN (16:56)
[2017-02-24] MEDS: GABAPENTIN 300 MG CAP PO SCH (20:04)
[2017-02-24] MEDS: MIRTAZAPINE 45 MG TABLET PO SCH (20:04)
[2017-02-25 01:40] VITALS: PULSE 73
--- NOTE | 2017-02-25 07:45 | PN ---
DATE OF SERVICE: 02/24/2017 PRESENTING COMPLAINT: Weak, tired, experiencing dark stools. INTERVAL HISTORY: This is a pleasant 76-year-old gentleman who presented to the emergency department with black stools for the past few days. Today, patient appears pale, tired, dizzy, lightheaded. Family is at the bedside talking with the patient. Patient appears happy and conversant with family. Review of systems done for constitutional, cardiovascular, GI, pulmonary with relevant findings as above. CURRENT MEDICATIONS: Alprazolam, atorvastatin, fluoxetine, gabapentin, hydrochlorothiazide, levothyroxine, lisinopril, mirtazapine, multivitamin, ondansetron, pantoprazole, Mirapex, PHYSICAL EXAMINATION: VITAL SIGNS: Temperature 97.0, pulse 72, blood pressure 120/67, oxygen saturation 95 on 2 L nasal cannula, respirations 18. GENERAL APPEARANCE: Lying in bed pale tired appearing. EYES: Pupils equal. Conjunctivae are pale. NECK: JVD not raised. Mass not palpable. RESPIRATORY: Effort normal. LUNGS: Diminished breath sounds bilaterally. CARDIOVASCULAR: S1, S2 noted and normal. No edema. ABDOMEN: Soft, nontender. Liver and spleen not palpable. PSYCHIATRIC: Alert and oriented x3. Mood and affect somewhat low. INVESTIGATIONS: Hemoglobin 7.6 up from 6.1 after receiving 2 units of packed red blood cells. All other lab values within normal limits. Patient had an EGD and colonoscopy, which revealed on the EGD Garcia's esophagus, gastritis and hiatal hernia. The colonoscopy revealed sigmoid diverticulosis. ASSESSMENT: 1. Acute gastrointestinal bleed in a patient who does take a baby aspirin gastric source ruled out; see information dictated above. 2. Chronic obstructive pulmonary disease in an ex-smoker. 3. Gastroesophageal reflux disease, status post EGD; see dictated information above. 4. Hyperlipidemia. 5. Essential hypertension. 6. Primary osteoarthritis of multiple joints bilateral. 7. Benign prostatic hypertrophy. 8. Chronic hypoxic respiratory failure on 2 liters of oxygen at home with underlying conditions of obstructive pulmonary disease. 9. Restless leg syndrome. 10. CODE STATUS: FULL CODE. PLAN: EGD completed, GI source of bleeding ruled out. Colonoscopy also completed on 02/24/2017. See information dictated above. Plan of care was discussed with the patient and the daughter at the bedside during rounds. Questions were answered. Prognosis guarded. The history and physical was performed on the patient by me/nurse practitioner and attending/Dr. Lorenz. The relevant points of the history/physical/diagnosis/plan were discussed and are as dictated above.
[2017-02-25] MEDS: FINASTERIDE 5 MG TAB PO SCH (08:26)
[2017-02-25] MEDS: HYDROCHLOROTHIAZIDE 12.5 MG CAP PO SCH (08:26)
[2017-02-25] MEDS: ATORVASTATIN 80 MG TAB PO SCH (08:26)
[2017-02-25] MEDS: LISINOPRIL 20 MG TAB PO SCH (08:26)
[2017-02-25] MEDS: FLUoxetine HCL 20 MG CAP PO SCH (08:26)
[2017-02-25] MEDS: MULTIVITAMINS, THERA 1 EACH TAB PO SCH (08:26)
[2017-02-25] MEDS: PANTOPRAZOLE 40 MG/10 ML VIAL IV SCH (08:26)
[2017-02-25] MEDS: LEVOTHYROXINE 75 MCG TAB PO SCH (08:27)
[2017-02-25] MEDS: SODIUM CHLORIDE 0.9% 1,000 ML IV SCH (08:27)
[2017-02-25 09:10] VITALS: BP 139/60; RESP 14; TEMP 97.2
[2017-02-25 09:15] LABS: Anisocytosis Slight; CH 24.2; HCT 24.8 % (39.0-53.0); HDW 4.69; HGB 7.4 gm/dL (13.0-17.5); Hypochromasia Marked; MCH 24.1 pg (25.0-35.0); MCHC 29.9 g/dL (31.0-37.0); MCV 80.7 fL (80.0-100.0); Mean Platelet Volume 6.9; Microcytosis Slight; Poikilocytosis Marked; RBC 3.07 m/uL (4.30-5.90); RDW 17.3 % (11.5-15.5); WBC 5.9 k/uL (3.8-10.6)
[2017-02-25] MEDS: PRAMIPEXOLE 0.5 MG TAB PO PRN (10:14)
[2017-02-25 10:16] LABS: Anion Gap 9 mmol/L; Blood Urea Nitrogen 18 mg/dL (9-20); Calcium 8.7 mg/dL (8.4-10.2); Carbon Dioxide 27 mmol/L (22-30); Chloride 104 mmol/L (98-107); Glucose 84 mg/dL (74-99); Non-African American GFR(MDRD) >60 (>60 ml/min/1.73 sqM); Potassium 4.2 mmol/L (3.5-5.1); Sodium 140 mmol/L (137-145)
[2017-02-25] MEDS: TIOTROPIUM 18 MCG/PUFF INHALER INHALATION SCH (12:13)
--- NOTE | 2017-02-27 08:48 | DS ---
DATE OF ADMISSION: 02/23/2017 DATE OF DISCHARGE: 02/25/2017 FINAL DIAGNOSES: 1. Acute gastrointestinal bleed, likely from aspirin causing gastritis. 2. Garcia's esophagus. 3. Chronic gastritis. 4. Hiatal hernia. 5. Sigmoid diverticulosis, asymptomatic. 6. Chronic obstructive pulmonary disease in an ex-smoker. 7. Gastroesophageal reflux disease. 8. Hyperlipidemia. 9. Essential hypertension. 10. Primary osteoarthritis of multiple joints, bilateral. 11. Benign prostatic hypertrophy. 12. Chronic hypoxic respiratory failure on 2 L oxygen at home from underlying chronic obstructive pulmonary disease. 13. Restless leg syndrome. 14. CODE STATUS: FULL. HOSPITAL COURSE: This is a patient who presented with dark stools, hemoglobin was 6.9. The patient was transfused 2 units of blood. At the time of discharge, hemoglobin had come up to 7.4. Patient's blood pressure was stable at 139/60. Patient did undergo EGD and colonoscopy by Dr. Park. Patient was found to have a short esophagus, some gastritis and some diverticulosis and low grade internal hemorrhoids. It is possible ( ) blood ( ) gastritis with a small ( ) of course any small bowel etiology cannot be ruled out but at the present time, not felt to be significant for inpatient work-up. Patient is waiting to go home. Hemodynamically stable up and about. On examination: LUNGS: Slightly decreased breath sounds. ABDOMEN: Soft, nontender. Psych: Alert and oriented x3. CONSULTATION: Dr. Park from GI. DISCHARGE MEDICATIONS: 1. Xanax 0.25 p.o. t.i.d. p.r.n. 2. ProAir 1 puff q.i.d. p.r.n. 3. Aspirin 81 mg p.o. daily. 4. Lipitor 80 mg p.o. daily. 5. Proscar 5 mg p.o. daily. 6. Neurontin 600 mg p.o. q.h.s. 7. Hydrochlorothiazide 12.5 mg p.o. daily. 8. Mirtazapine 45 mg p.o. q.h.s. 9. Multivitamin 1 tablet p.o. daily. 10. Mirapex 0.5 mg p.o. daily p.r.n. 11. CoQ10 200 mg p.o. daily. 12. Levoxyl 559 mg p.o. daily. 13. Ramipril 10 mg p.o. daily. 14. Tudorza one puff inhalation b.i.d. 15. Prozac 40 mg p.o. daily. 16. Protonix 40 mg p.o. daily. Follow up with Dr. Park on 03/07/17. Follow up with Dr. Gutierrez on 03/07/17. CBC in 3 to 5 days.
--- NOTE | 2017-03-24 05:26 | PN ---
DATE OF SERVICE: 02/24/2017 ATTENDING NOTE: This patient was seen and examined by me on 02/24/17. I reviewed the note of my nurse practitioner, Ms. Yousif and I agree and discussed with her. This is a patient who presented with dark stools. EGD and colonoscopy revealed Garcia's esophagus, gastritis, hiatal hernia. The patient is comfortable. On examination, blood pressure 120/67, pulse ox 95% on 2 L, lying in bed, comfortable. EYES: Conjunctivae pale. RESPIRATORY: Effort normal. LUNGS: Decreased breath sounds. CARDIOVASCULAR: First and second sounds normal. ABDOMEN: Soft, nontender. ASSESSMENT: Acute gastrointestinal bleed, probably from, Garcia's esophagus/gastritis and also has got sigmoid diverticulosis on colonoscopy. PLAN: Care was discussed with the patient and family at the bedside. Will follow. Patient did receive 2 units of blood earlier.
== END 2017-02-25 16:06 | disposition home or self-care (01) | DRG 378 ==
LOC: EC 22:18 → 6SEL 02-23 00:51 → 3SUR 02-24 17:09
PROVIDERS: ADMIT Hospitalist; ATTEND Hospitalist
PROC: 30233N1 Transfusion of Nonautologous Red Blood Cells into Peripheral Vein, Percutaneous Approach (ICD-10-PCS; 2017-02-23)
PROC: 0DB78ZX Excision of Stomach, Pylorus, Via Natural or Artificial Opening Endoscopic, Diagnostic (ICD-10-PCS; 2017-02-24)
PROC: 0DB58ZX Excision of Esophagus, Via Natural or Artificial Opening Endoscopic, Diagnostic (ICD-10-PCS; 2017-02-24)
PROC: 0DJD8ZZ Inspection of Lower Intestinal Tract, Via Natural or Artificial Opening Endoscopic (ICD-10-PCS; principal; 2017-02-24 13:10)
PROC: 0DB98ZX Excision of Duodenum, Via Natural or Artificial Opening Endoscopic, Diagnostic (ICD-10-PCS; 2017-02-24 13:10)
DX: K92.2 Gastrointestinal hemorrhage, unspecified (principal); J96.11 Chronic respiratory failure with hypoxia; Z99.81 Dependence on supplemental oxygen; Q39.8 Other congenital malformations of esophagus; D62 Acute posthemorrhagic anemia; K44.9 Diaphragmatic hernia without obstruction or gangrene; G62.9 Polyneuropathy, unspecified; J44.9 Chronic obstructive pulmonary disease, unspecified; I10 Essential (primary) hypertension; E03.9 Hypothyroidism, unspecified; K57.30 Diverticulosis of large intestine without perforation or abscess without bleeding; T39.015A Adverse effect of aspirin, initial encounter; R53.1 Weakness; K22.70 Barrett's esophagus without dysplasia; K64.8 Other hemorrhoids; K21.9 Gastro-esophageal reflux disease without esophagitis; R42 Dizziness and giddiness; F41.9 Anxiety disorder, unspecified; F32.9 Major depressive disorder, single episode, unspecified; M19.91 Primary osteoarthritis, unspecified site; G25.81 Restless legs syndrome; E78.5 Hyperlipidemia, unspecified; K29.50 Unspecified chronic gastritis without bleeding; H40.9 Unspecified glaucoma; N40.0 Benign prostatic hyperplasia without lower urinary tract symptoms; Z79.82 Long term (current) use of aspirin; Z79.899 Other long term (current) drug therapy; Z86.73 Personal history of transient ischemic attack (TIA), and cerebral infarction without residual deficits; Z87.11 Personal history of peptic ulcer disease; Z86.79 Personal history of other diseases of the circulatory system; Z87.19 Personal history of other diseases of the digestive system; Z91.018 Allergy to other foods; Z98.52 Vasectomy status; Z90.49 Acquired absence of other specified parts of digestive tract; Z90.79 Acquired absence of other genital organ(s); Z79.1 Long term (current) use of non-steroidal anti-inflammatories (NSAID)
CPT/HCPCS: 36415; 36430; 43239; 80048; 80053; 82550; 82553; 83605; 84484; 85025; 85027; 85610; 85730; 86850; 86900; 86901; 86920; 88305; 88342; 93005; 94640; 96374; 99285

== ENCOUNTER → 2017-03-02 | Outpatient (CLI) | payer MEDICARE ==
[2017-03-02 10:37] LABS: Anisocytosis Slight; CH 24.2; CHCM 30.5; HCT 26.7 % (39.0-53.0); HDW 4.94; HGB 8.2 gm/dL (13.0-17.5); Hypochromasia Marked; MCH 24.3 pg (25.0-35.0); MCHC 30.8 g/dL (31.0-37.0); Mean Platelet Volume 6.5; Microcytosis Slight; Poikilocytosis Marked; RBC 3.38 m/uL (4.30-5.90); RDW 17.3 % (11.5-15.5); WBC 4.6 k/uL (3.8-10.6); WBC (Perox) 4.58
[2017-03-02 12:12] LABS: Add Differential Manual Differential
[2017-03-02 12:14] LABS: Nucleated Red Blood Cells 0 /100 WBC (0-0); Total Cells Counted 100
[2017-03-02 12:17] LABS: Ovalocytes Present
== END | disposition home or self-care (01) ==
LOC: LABWHC1 09:31
PROVIDERS: ATTEND Hospitalist
DX: D64.9 Anemia, unspecified (principal)
CPT/HCPCS: 36415; 85025

== ENCOUNTER 2017-03-07 11:51 | Inpatient (IN) | payer MEDICARE ==
--- NOTE | 2017-03-07 12:39 | ED ---
General Adult HPI - General Chief complaint: Weakness Stated complaint: POSS LOW HEMOGLOBIN Time Seen by Provider: 03/07/17 12:05 Source: patient, family, RN notes reviewed Mode of arrival: wheelchair Limitations: no limitations - History of Present Illness Initial comments: This is a 76-year-old male who was recently admitted to the hospital for anemia and melena. Patient states starting last evening he became weak and mildly short of breath. According to family patient had bright red blood per stool yesterday. He denies any focal weakness he states it's generalized weakness and he feels the same as when he was anemic. Patient denies any chest pain or palpitations. Patient denies any lightheadedness dizziness or near syncopal episode. Patient denies any diaphoresis. Patient states when he is in the hospital he had a colonoscopy and they were unable to find any active site of bleeding. Patient denies any headache patient. Patient denies any fever chills or cough recently. Patient denies any back pain. Patient denies any dysuria hematuria urinary frequency. - Related Data Home Medications Medication Instructions Recorded Confirmed ALPRAZolam [Xanax] 0.25 mg PO TID PRN 12/03/15 03/07/17 Albuterol Sulfate [Proair Hfa] 1 puff INHALATION RT-QID PRN 12/03/15 03/07/17 Aspirin 81 mg PO DAILY 12/03/15 03/07/17 Atorvastatin [Lipitor] 80 mg PO DAILY 12/03/15 03/07/17 Finasteride [Proscar] 5 mg PO DAILY 12/03/15 03/07/17 Gabapentin [Neurontin] 600 mg PO HS 12/03/15 03/07/17 Hydrochlorothiazide 12.5 mg PO DAILY 12/03/15 03/07/17 Mirtazapine 45 mg PO HS 12/03/15 03/07/17 Multivitamin [Men's Multi-Vitamin] 1 tab PO DAILY 12/03/15 03/07/17 Pramipexole [Mirapex] 0.5 mg PO TID PRN 12/03/15 03/07/17 Ubidecarenone [Co Q-10] 200 mg PO DAILY 12/03/15 03/07/17 Levothyroxine Sodium [Levoxyl] 150 mcg PO DAILY 10/08/16 03/07/17 Ramipril 10 mg PO DAILY 10/08/16 03/07/17 Aclidinium [place]kin [Tudorza 1 puff INHALATION RT-BID 02/22/17 03/07/17 Pressair] FLUoxetine HCL [PROzac] 40 mg PO DAILY 02/22/17 03/07/17 Previous Rx's Medication Instructions Recorded Pantoprazole Sodium [Protonix] 40 mg PO DAILY #30 tablet. 02/25/17 Allergies Allergy/AdvReac Type Severity Reaction Status Date / Time Pepperoni AdvReac Nausea & Uncoded 03/07/17 12:06 Vomiting Review of Systems ROS Statement: Those systems with pertinent positive or pertinent negative responses have been documented in the HPI. ROS Other: All systems not noted in ROS Statement are negative. Past Medical History Past Medical History: COPD, Eye Disorder, GERD/Reflux, Hyperlipidemia, Hypertension, Osteoarthritis (OA), Prostate Disorder, Thyroid Disorder Additional Past Medical History / Comment(s): Restless leg syndrome. NEUROPATHY LEGS. SVT(ABLATION DONE), HOME O2 2 LITER N/C. SL GLAUCOMA. HEMORRHOIDS. BPH W/ OBSTRUCTION. diverticulitis History of Any Multi-Drug Resistant Organisms: None Reported Past Surgical History: Adenoidectomy, Cardiac Ablation, Cholecystectomy, Orthopedic Surgery, Tonsillectomy Additional Past Surgical History / Comment(s): cardiac ablation for SVT, mole removed from neck, R elbow surgery (tennis elbow), colonoscopy, circumcism, Vasectomy, R testicle surgery for infection, bilateral carpal tunnel releases. Past Anesthesia/Blood Transfusion Reactions: Family History of Problems w/ Anesthesia Additional Past Anesthesia/Blood Transfusion Reaction / Comment(s): DAUGHTER TAKES LONG TIME TO AWAKEN. Past Psychological History: Anxiety, Depression Additional Psychological History / Comment(s): Pt 'S DAUGHTER KENNA LIVES WITH HIM AND OTHER FAMILY MEMBERS HELP OUT WELL. Smoking Status: Former smoker Past Alcohol Use History: Daily Additional Past Alcohol Use History / Comment(s): Pt states he started smoking at age 16 (1957)and quit . was a 1 ppd smoker. Past Drug Use History: None Reported - Past Family History Father Family Medical History: No Reported History Additional Family Medical History / Comment(s): Father was healthy and at age 84 yrs. Mother Family Medical History: Cancer Additional Family Medical History / Comment(s): Mother was healthy and in her 70's Brother(s) History Unknown: Yes Sister(s) Family Medical History: Osteoarthritis (OA) General Exam - General Exam Comments Initial Comments: GENERAL: Patient is well-developed and well-nourished. Patient is nontoxic and well- hydrated and is in mild distress. ENT: Neck is soft and supple. No significant lymphadenopathy is noted. Oropharynx is clear. Moist mucous membranes. Neck has full range of motion without eliciting any pain. EYES: The sclera were anicteric and conjunctiva were pink and moist. Extraocular movements were intact and pupils were equal round and reactive to light. Eyelids were unremarkable. PULMONARY: Unlabored respirations. Good breath sounds bilaterally. No audible rales rhonchi or wheezing was noted. CARDIOVASCULAR: There is a regular rate and rhythm without any murmurs gallops or rubs. ABDOMEN: Soft and nontender with normal bowel sounds. No palpable organomegaly was noted. There is no palpable pulsatile mass. SKIN: Patient's face is somewhat pale however he has good cap refill at this time.. NEUROLOGIC: Patient is alert and oriented x3. Cranial nerves II through XII are grossly intact. Motor and sensory are also intact. Normal speech, volume and content. Symmetrical smile. MUSCULOSKELETAL: Normal extremities with adequate strength and full range of motion. No lower extremity swelling or edema. No calf tenderness. LYMPHATICS: No significant lymphadenopathy is noted PSYCHIATRIC: Normal psychiatric evaluation. Normal interpersonal interactions appears functionally intact in deals appropriately with others. No signs of depression. No signs of anxiety. Limitations: no limitations Course Vital Signs 03/07/17 03/07/17 12:06 12:29 Temperature 97.3 F L Pulse Rate 73 75 Respiratory 20 20 Rate Blood Pressure 133/61 148/83 O2 Sat by Pulse 97 Oximetry Medical Decision Making - Medical Decision Making EKG shows normal sinus rhythm at 72 bpm MS interval is on an 86 QRS is 86 QT interval 412 QTC is 451. EKG shows no ST segment elevation or depression Even though the hemoglobin was elevated compared to the last blood draw the patient was having bright red blood per rectum I decided to keep the patient. I spoke with because she agreed to keep the patient I wrote admitting orders. - Lab Data Result diagrams: 03/07/17 12:24 03/07/17 12:24 Lab Results 03/07/17 03/07/1717 Range/Units 12:24 12:24 12:24 WBC 4.7 (3.8-10.6) k/uL RBC 3.57 L (4.30-5.90) m/uL Hgb 8.6 L (13.0-17.5) gm/dL Hct 27.7 L (39.0-53.0) % MCV 77.6 L (80.0-100.0) fL MCH 24.0 L (25.0-35.0) pg MCHC 30.9 L (31.0-37.0) g/dL RDW 17.1 H (11.5-15.5) % Plt Count 279 (150-450) k/uL Neutrophils % 61 % Lymphocytes % 23 % Monocytes % 8 % Eosinophils % 3 % Basophils % 1 % Neutrophils # 2.8 (1.3-7.7) k/uL Lymphocytes # 1.1 (1.0-4.8) k/uL Monocytes # 0.4 (0-1.0) k/uL Eosinophils # 0.1 (0-0.7) k/uL Basophils # 0.0 (0-0.2) k/uL Hypochromasia Marked Poikilocytosis Marked Anisocytosis Slight Microcytosis Slight PT (9.0-12.0) sec INR (<1.1) APTT (22.0-30.0) sec Sodium 139 (137-145) mmol/L Potassium 4.8 (3.5-5.1) mmol/L Chloride 103 (98-107) mmol/L Carbon Dioxide 26 (22-30) mmol/L Anion Gap 10 mmol/L BUN 23 H (9-20) mg/dL Creatinine 0.91 (0.66-1.25) mg/dL Est GFR (MDRD) Af Amer >60 (>60 ml/min/1.73 sqM) Est GFR (MDRD) Non-Af >60 (>60 ml/min/1.73 sqM) Glucose 106 H (74-99) mg/dL Calcium 9.1 (8.4-10.2) mg/dL Magnesium 2.1 (1.6-2.3) mg/dL Total Bilirubin 0.8 (0.2-1.3) mg/dL AST 23 (17-59) U/L ALT 30 (21-72) U/L Alkaline Phosphatase 115 (38-126) U/L Total Creatine Kinase 53 L (55-170) U/L CK-MB (CK-2) 1.1 (0.0-2.4) ng/mL CK-MB (CK-2) Rel Index 2.1 Troponin I <0.012 (0.000-0.034) ng/mL Total Protein 7.4 (6.3-8.2) g/dL Albumin 4.2 (3.5-5.0) g/dL Urine Color Urine Appearance (Clear) Urine pH (5.0-8.0) Ur Specific Martin (1.001-1.035) Urine Protein (Negative) Urine Glucose (UA) (Negative) Urine Ketones (Negative) Urine Blood (Negative) Urine Nitrite (Negative) Urine Bilirubin (Negative) Urine Urobilinogen (<2.0) mg/dL Ur Leukocyte Esterase (Negative) Urine RBC (0-5) /hpf Urine WBC (0-5) /hpf Urine Mucus (None) /hpf 03/07/17 03/07/17 Range/Units 12:24 14:30 WBC (3.8-10.6) k/uL RBC (4.30-5.90) m/uL Hgb (13.0-17.5) gm/dL Hct (39.0-53.0) % MCV (80.0-100.0) fL MCH (25.0-35.0) pg MCHC (31.0-37.0) g/dL RDW (11.5-15.5) % Plt Count (150-450) k/uL Neutrophils % % Lymphocytes % % Monocytes % % Eosinophils % % Basophils % % Neutrophils # (1.3-7.7) k/uL Lymphocytes # (1.0-4.8) k/uL Monocytes # (0-1.0) k/uL Eosinophils # (0-0.7) k/uL Basophils # (0-0.2) k/uL Hypochromasia Poikilocytosis Anisocytosis Microcytosis PT 10.3 (9.0-12.0) sec INR 1.0 (<1.1) APTT 20.6 L (22.0-30.0) sec Sodium (137-145) mmol/L Potassium (3.5-5.1) mmol/L Chloride (98-107) mmol/L Carbon Dioxide (22-30) mmol/L Anion Gap mmol/L BUN (9-20) mg/dL Creatinine (0.66-1.25) mg/dL Est GFR (MDRD) Af Amer (>60 ml/min/1.73 sqM) Est GFR (MDRD) Non-Af (>60 ml/min/1.73 sqM) Glucose (74-99) mg/dL Calcium (8.4-10.2) mg/dL Magnesium (1.6-2.3) mg/dL Total Bilirubin (0.2-1.3) mg/dL AST (17-59) U/L ALT (21-72) U/L Alkaline Phosphatase (38-126) U/L Total Creatine Kinase (55-170) U/L CK-MB (CK-2) (0.0-2.4) ng/mL CK-MB (CK-2) Rel Index Troponin I (0.000-0.034) ng/mL Total Protein (6.3-8.2) g/dL Albumin (3.5-5.0) g/dL Urine Color Yellow Urine Appearance Clear (Clear) Urine pH 8.0 (5.0-8.0) Ur Specific Martin 1.017 (1.001-1.035) Urine Protein Trace H (Negative) Urine Glucose (UA) Negative (Negative) Urine Ketones Negative (Negative) Urine Blood Negative (Negative) Urine Nitrite Negative (Negative) Urine Bilirubin Negative (Negative) Urine Urobilinogen <2.0 (<2.0) mg/dL Ur Leukocyte Esterase Small H (Negative) Urine RBC 2 (0-5) /hpf Urine WBC 10 H (0-5) /hpf Urine Mucus Rare H (None) /hpf Disposition Clinical Impression: Anemia, GI bleed Disposition: ADMITTED IP TO THIS [facility] Time of Disposition: 15:22
[2017-03-07 13:06] LABS: Anisocytosis Slight; Basophils % (A) 1 %; CH 23.8; CHCM 30.6; Eosinophils # (A) 0.1 k/uL (0-0.7); Eosinophils % (A) 3 %; HCT 27.7 % (39.0-53.0); HDW 5.21; HGB 8.6 gm/dL (13.0-17.5); Hypochromasia Marked; Luc # (Auto) 0.21; Luc % (Auto) 4; Lymphocytes # (A) 1.1 k/uL (1.0-4.8); Lymphocytes % (A) 23 %; MCHC 30.9 g/dL (31.0-37.0); MCV 77.6 fL (80.0-100.0); Mean Platelet Volume 6.8; Microcytosis Slight; Monocytes # (A) 0.4 k/uL (0-1.0); Monocytes % (A) 8 %; Neutrophils # (A) 2.8 k/uL (1.3-7.7); Neutrophils % (A) 61 %; Poikilocytosis Marked; RBC 3.57 m/uL (4.30-5.90); RDW 17.1 % (11.5-15.5); WBC 4.7 k/uL (3.8-10.6); WBC (Perox) 4.73
[2017-03-07 13:07] LABS: ALT 30 U/L (21-72); AST 23 U/L (17-59); Alkaline Phosphatase 115 U/L (38-126); Anion Gap 10 mmol/L; Blood Urea Nitrogen 23 mg/dL (9-20); Calcium 9.1 mg/dL (8.4-10.2); Carbon Dioxide 26 mmol/L (22-30); Chloride 103 mmol/L (98-107); Glucose 106 mg/dL (74-99); Magnesium 2.1 mg/dL (1.6-2.3); Non-African American GFR(MDRD) >60 (>60 ml/min/1.73 sqM); Potassium 4.8 mmol/L (3.5-5.1); Sodium 139 mmol/L (137-145); Total Bilirubin 0.8 mg/dL (0.2-1.3); Total Protein 7.4 g/dL (6.3-8.2)
[2017-03-07] MEDS ORDERED: PRAMIPEXOLE 0.5 MG TAB PO STA (13:08)
--- NOTE | 2017-03-07 13:15 | XR ---
EXAMINATION TYPE: XR chest 2V DATE OF EXAM: 03/07/2017 1:02 PM COMPARISON: Prior chest x-ray 10 October 2016 HISTORY: Weakness TECHNIQUE: Frontal and lateral views of the chest are obtained. FINDINGS: There is no focal air space opacity, pleural effusion, or pneumothorax seen. The cardiac silhouette size is within normal limits. There are overlying cardiac leads. Patient is rotated. Aorta is dense and tortuous. Prominent lung volume compatible with emphysema. There is likely some basilar atelectasis or scarring. The osseous structures are intact. IMPRESSION: Emphysema, additional findings above.
[2017-03-07 13:21] LABS: Creatine Kinase 53 U/L (55-170)
[2017-03-07 13:24] LABS: Prothrombin Time 10.3 sec (9.0-12.0)
[2017-03-07 13:33] LABS: Creatine Kinase MB 1.1 ng/mL (0.0-2.4); Troponin I <0.012 ng/mL (0.000-0.034)
[2017-03-07 14:13] LABS: Partial Thromboplastin Time 20.6 sec (22.0-30.0)
[2017-03-07 14:53] LABS: Appearance,Urine Clear (Clear); Bilirubin,Urine Negative (Negative); Glucose,Urine (UA) Negative (Negative); Ketones,Urine Negative (Negative); Leukocyte Esterase,Urine Small (Negative); Mucus,Urine Rare /hpf; Nitrite,Urine Negative (Negative); Particle Count 967; Protein,Urine Trace (Negative); RBC,Urine 2 /hpf (0-5); Specific Gravity,Urine 1.017 (1.001-1.035); UA Billing (MACRO vs. MICRO) MICRO; Urobilinogen,Urine <2.0 mg/dL (<2.0); WBC,Urine 10 /hpf (0-5)
[2017-03-07] MEDS ORDERED: SODIUM CHLORIDE 0.9% 1,000 ML IV ONE (15:22)
[2017-03-07] MEDS ORDERED: ALPRAZolam 0.25 MG TAB PO PRN (16:12)
[2017-03-07] MEDS ORDERED: ALBUTEROL NEBULIZED 2.5 MG/3 ML INHALATION PRN (17:25)
[2017-03-07] MEDS: FLUoxetine HCL 20 MG CAP PO SCH (18:37)
[2017-03-07] MEDS: LISINOPRIL 20 MG TAB PO SCH (18:37)
[2017-03-07] MEDS: FINASTERIDE 5 MG TAB PO SCH (18:37)
[2017-03-07] MEDS: PANTOPRAZOLE 40 MG TABLET PO SCH (18:38)
[2017-03-07] MEDS: MIRTAZAPINE 45 MG TABLET PO SCH (20:12)
[2017-03-07] MEDS ORDERED: GABAPENTIN 300 MG CAP PO SCH (21:00)
--- NOTE | 2017-03-07 23:04 | HP ---
DATE OF ADMISSION: 03/07/2017 PRESENTING COMPLAINT: Lower GI bleed. History of presenting complaint: This is a very pleasant 76-year-old who was here back on 02/23/2017 discharged on 02/25/2017. Patient had come with dark stools. Patient did undergo EGD and colonoscope. He was found to have gastritis, Garcia's esophagus and chronic gastritis, hiatal hernia, also found to have sigmoid diverticulosis, the patient's other chronic stable medical conditions include COPD, GERD, hyperlipidemia, hypertension, primary osteoarthritis, BPH, chronic hypoxic respiratory failure on 2 L oxygen at home from underlying chronic obstructive pulmonary disease, restless leg syndrome. Patient presented with intermittent bleeding, ( ) from the rectum. Three days ago and some the day before. No abdominal pain. Does feel weak, tired and rundown. The patient is accompanied by his daughter. The patient did have an EGD and colonoscopy on the last admission. REVIEW OF SYSTEMS: CONSTITUTIONAL: Weak and tired. HEENT: Decreased hearing. RESPIRATORY: Mild baseline, some shortness of breath. CARDIOVASCULAR: None. GASTROINTESTINAL: As above. GENITOURINARY: None. MUSCULOSKELETAL: Pain in different joints. Dermatological: Some bruising. HEMATOLOGICAL: Above. LYMPHATICS: None. PSYCHIATRY: None. NEUROLOGICAL: None. PAST MEDICAL HISTORY: COPD, stroke, hyperlipidemia, hypertension, osteoarthritis, SVT ablation home oxygen 2 liters, TIAs, BPH, hypothyroidism, restless leg syndrome, peripheral neuropathy, benign prostatic hypertrophy, diverticulosis, gastritis, esophagitis, hiatal hernia, diverticulosis. PAST SURGICAL HISTORY: Adenoidectomy. Cardiac ablation, cholecystectomy, tonsillectomy, right elbow surgery, circumcision, vasectomy, right testicle infection, bilateral carpal release. Past psych history: Anxiety, depression. SOCIAL HISTORY: The patient lives with his daughter Elisha. Patient started smoking age of 16 and quit in August of last year, smoked about a pack a day. ALLERGIES TO PEPPERONI. HOME MEDICATIONS: 1. Mirapex 0.5 mg p.o. t.i.d. p.r.n. 2. CoQ10 200 mg p.o. daily. 3. Ramipril 10 mg p.o. daily. 4. Protonix 40 mg p.o. daily. 5. Men's Multivitamin 1 tablet p.o. daily. 6. Mirtazapine 45 mg p.o. q.h.s. 7. ( ) 150 mcg p.o. daily. 8. Hydrochlorothiazide 12.5 mg p.o. daily. 9. Neurontin 600 mg p.o. q.h.s. 10. Proscar 5 mg p.o. daily. 11. Prozac 40 mg p.o. daily. 12. Lipitor 80 mg p.o. daily. 13. Aspirin 81 mg p.o. daily. 14. ProAir 1 puff q.i.d. p.r.n. 15. Tudorza 1 puff b.i.d. 16. Xanax 0.25 p.o. t.i.d. p.r.n. On examination, temperature 97.9, pulse 78, respiratory rate 18, blood pressure 114/71, pulse ox 96% on 2 liters. GENERAL APPEARANCE: Average build, lying in bed, not in distress. EYES: Pupils equal. Conjunctivae were pale. HEENT: External appearance of nose and ears normal. Oral cavity normal. Decreased hearing. NECK: JVD not raised. Mass not palpable. RESPIRATORY: Effort normal. LUNGS: Slightly decreased breath sounds. CARDIOVASCULAR: First and second sounds normal. No edema. ABDOMEN: Soft, nontender. Liver and spleen not palpable. LYMPHATIC: No lymph nodes palpable in the neck or axillae. PSYCHIATRIC: Alert and oriented x3. Mood and affect is normal. NEUROLOGICAL: Pupils equal. Cranial nerves grossly intact. Power and sensation grossly intact. INVESTIGATIONS: Hemoglobin 8.6. Potassium 4.8. BUN 23, creatinine 0.91. Patient's hemoglobin was 7.4 when he left the hospital on 02/25/17. ASSESSMENT: 1. Acute gastrointestinal bleed in a patient who did have a EGD in the last admission showing gastritis, Garcia's esophagus chronic ( ) was on aspirin and also colonoscopy showed sigmoid diverticulosis. There was question about capsule endoscopy for a small bowel that still remains in the differential. Though this well could be sigmoid diverticular bleed. 2. Sigmoid diverticulosis. 3. Chronic obstructive pulmonary disease in an ex-smoker. 4. Gastroesophageal reflux disease. 5. Hyperlipidemia. 6. Essential hypertension. 7. Primary osteoarthritis of multiple joints bilateral. 8. Benign prostatic hypertrophy. 9. Chronic hypoxic respiratory failure, on 2 liters oxygen at home from underlying chronic obstructive pulmonary disease. 10. Restless leg syndrome. 11. CODE STATUS: FULL. 12. Acute blood loss anemia from recurrent gastrointestinal bleed. PLAN: Home medications are resumed. Patient's antiplatelet agents are held off. Gastroenterology was consulted. Care was discussed with the patient and daughter at the bedside. We will repeat a CBC in the morning. The patient may need capsule endoscopy, will see if that helps.
[2017-03-07 23:49] LABS: Anisocytosis Slight; Basophils % (A) 1 %; CH 23.6; CHCM 29.7; Eosinophils # (A) 0.2 k/uL (0-0.7); Eosinophils % (A) 4 %; HCT 25.5 % (39.0-53.0); HDW 4.86; HGB 7.5 gm/dL (13.0-17.5); Hypochromasia Marked; Luc # (Auto) 0.17; Luc % (Auto) 4; Lymphocytes # (A) 1.4 k/uL (1.0-4.8); Lymphocytes % (A) 30 %; MCH 23.4 pg (25.0-35.0); MCHC 29.6 g/dL (31.0-37.0); MCV 79.1 fL (80.0-100.0); Mean Platelet Volume 8.1; Microcytosis Slight; Monocytes # (A) 0.4 k/uL (0-1.0); Monocytes % (A) 8 %; Neutrophils # (A) 2.5 k/uL (1.3-7.7); Neutrophils % (A) 53 %; Poikilocytosis Marked; RBC 3.22 m/uL (4.30-5.90); RDW 17.5 % (11.5-15.5); WBC 4.6 k/uL (3.8-10.6); WBC (Perox) 4.82
[2017-03-08] MEDS: LEVOTHYROXINE 75 MCG TAB PO SCH (05:36)
[2017-03-08] MEDS: TIOTROPIUM 18 MCG/PUFF INHALER INHALATION SCH (07:38)
[2017-03-08] MEDS ORDERED: NON-FORMULARY DRUG (Ubidecarenone [Co Q-10] 200 MG) PO SCH (09:00)
[2017-03-08] MEDS: LISINOPRIL 20 MG TAB PO SCH (09:17)
[2017-03-08] MEDS: FINASTERIDE 5 MG TAB PO SCH (09:17)
[2017-03-08] MEDS: ATORVASTATIN 80 MG TAB PO SCH (09:18)
[2017-03-08] MEDS: PANTOPRAZOLE 40 MG TABLET PO SCH (09:18)
[2017-03-08] MEDS: FLUoxetine HCL 20 MG CAP PO SCH (09:18)
[2017-03-08] MEDS ORDERED: GABAPENTIN 300 MG CAP PO SCH (09:44)
[2017-03-08 10:31] LABS: Anisocytosis Slight; Aty Lym Flag Slight; CH 23.4; CHCM 29.7; HCT 26.2 % (39.0-53.0); HDW 4.84; HGB 7.8 gm/dL (13.0-17.5); Hypochromasia Marked; MCH 23.4 pg (25.0-35.0); MCHC 29.7 g/dL (31.0-37.0); MCV 78.7 fL (80.0-100.0); Mean Platelet Volume 7.1; Microcytosis Slight; Poikilocytosis Marked; RBC 3.33 m/uL (4.30-5.90); RDW 17.3 % (11.5-15.5); WBC 3.8 k/uL (3.8-10.6); WBC (Perox) 3.97
[2017-03-08 11:01] LABS: Add Differential Manual Differential
[2017-03-08 11:04] LABS: Nucleated Red Blood Cells 0 /100 WBC (0-0); Total Cells Counted 100
[2017-03-08 11:16] LABS: Ovalocytes Present
[2017-03-08] MEDS: GABAPENTIN 300 MG CAP PO SCH ×2 (11:48→22:28)
[2017-03-08] MEDS: PRAMIPEXOLE 0.5 MG TAB PO PRN ×2 (12:50→17:00)
--- NOTE | 2017-03-08 13:14 | P.CONS ---
History of Present Illness - Reason for Consult Consult date: 03/08/17 anemia GI bleed Requesting physician: Pedro Lorenz - History of Present Illness 76-year-old gentleman patient of Dr. Gutierrez with a past medical history of diverticulosis, remote peptic ulcer disease, CVA, TIA, O2 dependent COPD, BPH status post TURP December 2016, hyperlipidemia, hypertension, anxiety, depression, and cardiac arrhythmia. Admitted with reports of intermittent rectal bleeding red in color without abdominal pain and low hemoglobin. Admission hemoglobin 8.6 currently 7.8. MCV 78. BUN 23. Creatinine 0.9. He was evaluated by the GI service 2 weeks ago for symptomatic anemia and painless rectal bleeding x 1 week thought to be diverticular in nature. Received 2 units of blood during that admission. He underwent EGD colonoscopy 02/24/2017 findings of sliding hiatal hernia and short Garcia's esophagus no obvious complicated reflux disease. Biopsies negative for H. pylori. Garcia's mucosa negative for dysplasia. Colonoscopy identified sigmoid diverticulosis/low-grade internal hemorrhoids not bleeding at the time of exam. Capsule endoscopy was suggested if patient continued to have rectal bleeding. He was on baby aspirin prior to January hospitalization and it was discontinued. Despite discontinuance of aspirin patient is still having intermittent BRBPR. Denies fever or chills or changes in appetite. No NSAIDs alcohol or other antiplatelet medications. Review of Systems Constitutional: Denies fever, chills, sweats, weight gain, or loss. HEENT: Negative for migraines, blurred vision or loss, earaches, drainage, tinnitus, oral mucosal lesions, dysphagia, or odynophagia. Cardiac: Hyperlipidemia, hypertension, arrhythmia Negative for chest pain, arrhythmias, or palpitation. Respiratory: O2-dependent COPD Negative for shortness of breath, hemoptysis, cough, or sputum production. Gastrointestinal: See HPI for pertinent findings. Genitourinary: BPH. Negative for hematuria, urgency, frequency, polyuria, dysuria, or penile discharge. Musculoskeletal: Osteoarthritis Negative for muscle aches, swelling, arthritis, and arthralgias. Neurologic: Restless leg syndrome Negative for stroke or TIA. Endocrine: Negative for thyroid problems. Skin: Negative for rash or itching. Psychiatric: History for depression and anxiety All systems: negative (See HPI) Past Medical History Past Medical History: COPD, Eye Disorder, GERD/Reflux, Hyperlipidemia, Hypertension, Osteoarthritis (OA), Prostate Disorder, Thyroid Disorder Additional Past Medical History / Comment(s): Restless leg syndrome. NEUROPATHY LEGS. SVT(ABLATION DONE), HOME O2 2 LITER N/C. SL GLAUCOMA. HEMORRHOIDS. BPH W/ OBSTRUCTION. diverticulosis, gastritis, hiatal hernia, barretts esophagus(per past discharge summary) History of Any Multi-Drug Resistant Organisms: None Reported Past Surgical History: Adenoidectomy, Cardiac Ablation, Cholecystectomy, Orthopedic Surgery, Tonsillectomy Additional Past Surgical History / Comment(s): cardiac ablation for SVT, mole removed from neck, R elbow surgery (tennis elbow), colonoscopy, circumcism, Vasectomy, R testicle surgery for infection, bilateral carpal tunnel releases. Past Anesthesia/Blood Transfusion Reactions: Family History of Problems w/ Anesthesia Additional Past Anesthesia/Blood Transfusion Reaction / Comm: DAUGHTER TAKES LONG TIME TO AWAKEN. Past Psychological History: Anxiety, Depression Additional Psychological History / Comment(s): pt's pased away 2005.Pt 'S DAUGHTER KENNA LIVES WITH HIM AND OTHER FAMILY MEMBERS HELP OUT WELL. lives in one level home that has 5 steps to enter. has 2 dogs, 1 cat. no outside services but has home 02. pt does'nt use any assitive devices when up but can only ambulate short distances. Smoking Status: Former smoker Past Alcohol Use History: Daily Additional Past Alcohol Use History / Comment(s): Pt states he started smoking at age 16 (1957)and quit . was a 1 ppd smoker. admits to drinking for some period of time in his past-quit heavy drinking 10 yeras ago no onlt occ. Past Drug Use History: None Reported - Past Family History Father Family Medical History: No Reported History Additional Family Medical History / Comment(s): Father was healthy and at age 84 yrs. Mother Family Medical History: Cancer Additional Family Medical History / Comment(s): Mother was healthy and in her 70's Brother(s) History Unknown: Yes Sister(s) Family Medical History: Osteoarthritis (OA) Medications and Allergies Home Medications Medication Instructions Recorded Confirmed Type ALPRAZolam [Xanax] 0.25 mg PO TID PRN 12/03/15 03/07/17 History Albuterol Sulfate [Proair Hfa] 1 puff INHALATION RT-QID PRN 12/03/15 03/07/17 History Aspirin 81 mg PO DAILY 12/03/15 03/07/17 History Atorvastatin [Lipitor] 80 mg PO DAILY 12/03/15 03/07/17 History Finasteride [Proscar] 5 mg PO DAILY 12/03/15 03/07/17 History Gabapentin [Neurontin] 600 mg PO BID PRN 12/03/15 03/08/17 History Hydrochlorothiazide 12.5 mg PO DAILY 12/03/15 03/07/17 History Mirtazapine 45 mg PO HS 12/03/15 03/07/17 History Multivitamin [Men's Multi-Vitamin] 1 tab PO DAILY 12/03/15 03/07/17 History Pramipexole [Mirapex] 0.5 mg PO TID PRN 12/03/15 03/07/17 History Ubidecarenone [Co Q-10] 200 mg PO DAILY 12/03/15 03/07/17 History Levothyroxine Sodium [Levoxyl] 150 mcg PO DAILY 10/08/16 03/07/17 History Ramipril 10 mg PO DAILY 10/08/16 03/07/17 History Aclidinium [place] [Tudorza 1 puff INHALATION RT-BID 02/22/17 03/07/17 History Pressair] FLUoxetine HCL [PROzac] 40 mg PO DAILY 02/22/17 03/07/17 History Allergies Allergy/AdvReac Type Severity Reaction Status Date / Time Pepperoni AdvReac Nausea & Uncoded 03/07/17 12:06 Vomiting Physical Exam Vitals: Vital Signs Temp Pulse Pulse Resp BP BP Pulse Ox 03/08/17 07:40 97 03/08/17 07:00 96.8 F L 75 18 114/61 91 L 03/07/17 23:00 97.0 F L 78 18 133/71 92 L 03/07/17 17:31 18 03/07/17 15:49 97.9 F 70 18 141/71 96 Intake and Output 03/07/17 03/08/17 03/08/17 22:59 06:59 14:59 Output Total 1000 1000 Balance -1000 -1000 Output: Urine 1000 1000 Other: Voiding Method Toilet General appearance: The patient is alert, oriented, in no acute distress. HET: Head is normocephalic and atraumatic. Pupils are equal and reactive. Oropharynx is clear without lesions. Neck: Supple without lymphadenopathy. Trachea midline. Heart: S1 S2. Regular rate and rhythm. Lungs: No crackles or wheezes are heard. Abdomen: Soft, nontender, nondistended with bowel sounds. No peritoneal signs. No palpable organomegaly or masses. Extremities: Normal skin color and turgor. No cyanosis, rash, ulceration, clubbing, or edema. Radial and pedal pulses are 2/4 bilaterally. Neurological: No focal deficits. Strength and sensation are grossly intact. Results CBC & Chem 7: 03/08/17 09:15 03/07/17 12:24 Labs: Abnormal Lab Results - Last 24 Hours (Table) 03/07/17 Range/Units 23:30 RBC 3.22 L (4.30-5.90) m/uL Hgb 7.5 L (13.0-17.5) gm/dL Hct 25.5 L (39.0-53.0) % MCV 79.1 L (80.0-100.0) fL MCH 23.4 L (25.0-35.0) pg MCHC 29.6 L (31.0-37.0) g/dL RDW 17.5 H (11.5-15.5) % Assessment and Plan (1) Symptomatic anemia Status: Acute (2) Colon, diverticulosis Status: Chronic (3) Anemia Status: Chronic (4) GI bleed Status: Acute Plan: 1. Small bowel capsule endoscopy tomorrow. 2. CBC monitoring. Iron indices. 3. Baby ASA on hold. 4. Protonix 40 mg daily. The agricultural aircraft pilot has discussed the risks, benefits and alternative therapies for the above-mentioned procedure and for both sedation/analgesia as well as necessary blood product administration, if indicated, as they pertain to this patient. The patient has indicated understanding and acceptance of the risks and procedures discussed. Thank you for this kind referral and the opportunity to participate in the care of your patient. This consultation was discussed with Dr. Granger. The impression and plan of care have been directed as dictated.
[2017-03-08 14:22] LABS: % Iron Saturation 6.1 % (20-50)
[2017-03-08 15:39] VITALS: RESP 19
[2017-03-08] MEDS ORDERED: MAGNESIUM CITRATE 296 ML BOTTLE PO ONE (17:00)
[2017-03-08] MEDS ORDERED: WITCH HAZEL 1 EACH MED..PAD TOPICAL PRN (22:24)
[2017-03-08] MEDS: MIRTAZAPINE 45 MG TABLET PO SCH (22:28)
[2017-03-09 01:59] LABS: Anisocytosis Slight; Basophils # (A) 0.1 k/uL (0-0.2); Basophils % (A) 1 %; CH 23.4; CHCM 29.6; Eosinophils # (A) 0.1 k/uL (0-0.7); Eosinophils % (A) 2 %; HCT 26.4 % (39.0-53.0); HDW 4.93; HGB 7.7 gm/dL (13.0-17.5); Hypochromasia Marked; Luc # (Auto) 0.25; Luc % (Auto) 4; Lymphocytes # (A) 1.5 k/uL (1.0-4.8); Lymphocytes % (A) 25 %; MCH 23.1 pg (25.0-35.0); MCHC 29.2 g/dL (31.0-37.0); MCV 79.1 fL (80.0-100.0); Mean Platelet Volume 7.3; Microcytosis Slight; Monocytes # (A) 0.3 k/uL (0-1.0); Monocytes % (A) 5 %; Neutrophils # (A) 3.7 k/uL (1.3-7.7); Neutrophils % (A) 63 %; Poikilocytosis Marked; RBC 3.35 m/uL (4.30-5.90); RDW 17.5 % (11.5-15.5); WBC 5.9 k/uL (3.8-10.6); WBC (Perox) 6.14
--- NOTE | 2017-03-09 05:32 | PN ---
DATE OF SERVICE: 03/07/2017 DATE OF SERVICE: 03/08/2017 PRESENTING COMPLAINT: Lower GI bleed. INTERVAL HISTORY: This is a 76-year-old gentleman who was recently hospitalized on 02/23/2017 and discharged on 02/25/2017. At that time patient presented with dark stools. Patient underwent an EGD and a colonoscopy and was found to have gastritis, Garcia's esophagus and chronic gastritis with hiatal hernia and sigmoid diverticulosis. Patient returned to the emergency department on 03/07/2017 with intermittent bleeding from the rectum. This occurred approximately 3 days prior to day of admission. Today, patient feels good. No bloody stools. No blood of any kind. Review of systems done for constitutional, cardiovascular, gastrointestinal, pulmonary with relevant findings as above. CURRENT MEDICATIONS: Albuterol, Xanax, Lipitor, Neurontin, Synthroid, Zestril, Protonix, Mirapex, Spiriva. PHYSICAL EXAM: VITAL SIGNS: Temperature 97.7, pulse 74, respiratory rate 19, blood pressure 111/67, oxygen saturation 96% on 2 L nasal cannula. GENERAL APPEARANCE: Patient is awake and alert, sitting at the bedside on the bed. No acute complaints. Daughter is also present at the bedside. Had some questions about testing and discharging, but both in good spirits. EYES: Pupils react equal. Conjunctivae normal. NECK: JVD not raised. Mass not palpable. LUNGS: Bilateral breath sounds diminished. RESPIRATORY: Effort normal. Unlabored. CARDIOVASCULAR: S1, S2 normal. No edema noted. ABDOMEN: Soft, nontender. Liver and spleen not palpable. PSYCHIATRIC: Alert and oriented x3. Mood and affect normal. INVESTIGATIONS: Hemoglobin 7.8, hematocrit 26.2, platelet count 251. TIBC 25, ferritin 11, percent saturation 6.1. ASSESSMENT: 1. Acute gastrointestinal bleed in a patient who did have an EGD on last admission showing gastritis, Garcia's esophagus, chronic gastritis, hiatal hernia and sigmoid diverticulosis. There was a question about capsule endoscopy for small bowel follow-through at that time and will occur on 03/09/2017. 2. Sigmoid diverticulosis. 3. Chronic obstructive pulmonary disease in an ex-smoker. 4. Gastroesophageal reflux disease. 5. Hyperlipidemia. 6. Essential hypertension. 7. Primary osteoarthritis of multiple joints, bilateral. 8. Benign prostatic hypertrophy. 9. Chronic hypoxic respiratory failure on 2 L of oxygen at home from underlying chronic obstructive pulmonary disease. 10. Restless leg syndrome. 11. CODE STATUS: FULL. 12. Acute blood loss anemia from recurrent gastrointestinal bleed. PLAN: Continue to hold antiplatelet agents. Gastroenterology was consulted. Their recommendations include small bowel capsule endoscopy tomorrow, 03/09/2017. Continuation of Protonix 40 mg daily. Continue monitoring lab values. If capsule endoscopy is negative on tomorrow, we will consider discharging the patient once procedure is complete. Patient was seen and examined by nurse practitioner, Lupe Yousif and all elements of the case was discussed with attending, Dr. Lorenz.
--- NOTE | 2017-03-09 07:23 | PN ---
DATE OF SERVICE: 03/08/2017 ATTENDING NOTE: This patient was seen and examined by me today. I reviewed the note of my nurse practitioner, Ms. Yousif. I agree with the same except as noted below. This patient presented with lower GI bleed. Has no further bleeding. Seen by GI earlier today. Planning to do a capsule endoscopy. The patient still feels a bit tired, lying in bed, but otherwise comfortable. On examination, temperature 97.7, pulse 90, blood pressure 116/67. LUNGS: Slightly decreased breath sounds. CARDIOVASCULAR: First and second sounds normal. PSYCH: Alert and oriented x3. Mood and affect normal. INVESTIGATIONS: Hemoglobin 7.8. Iron studies are noted showing ferritin of 11. ASSESSMENT: Acute gastrointestinal bleed in a patient who has had recent EGD, colonoscopy. The patient may have a small bowel source of bleeding or this could well be a diverticular bleed. PLAN: Continue current medication and treatment plan. Await capsule study tomorrow and go from there. No bleeding any further today.
[2017-03-09] MEDS: TIOTROPIUM 18 MCG/PUFF INHALER INHALATION SCH (07:59)
[2017-03-09] MEDS: LISINOPRIL 20 MG TAB PO SCH (11:26)
[2017-03-09] MEDS: FLUoxetine HCL 20 MG CAP PO SCH (11:26)
[2017-03-09] MEDS: PANTOPRAZOLE 40 MG TABLET PO SCH (11:26)
[2017-03-09] MEDS: ATORVASTATIN 80 MG TAB PO SCH (11:26)
[2017-03-09] MEDS: LEVOTHYROXINE 75 MCG TAB PO SCH (11:26)
[2017-03-09] MEDS: GABAPENTIN 300 MG CAP PO SCH (11:26)
[2017-03-09] MEDS: FINASTERIDE 5 MG TAB PO SCH (11:26)
[2017-03-09 12:11] LABS: Anisocytosis Slight; CH 23.7; CHCM 29.5; HCT 27.2 % (39.0-53.0); HDW 4.99; HGB 8.1 gm/dL (13.0-17.5); Hypochromasia Marked; MCH 23.9 pg (25.0-35.0); MCHC 29.8 g/dL (31.0-37.0); MCV 80.4 fL (80.0-100.0); Mean Platelet Volume 7.4; Microcytosis Slight; Poikilocytosis Marked; RBC 3.38 m/uL (4.30-5.90); RDW 17.2 % (11.5-15.5); WBC 3.9 k/uL (3.8-10.6)
[2017-03-09] MEDS: PRAMIPEXOLE 0.5 MG TAB PO PRN (14:13)
[2017-03-09 16:27] VITALS: BP 127/70; TEMP 96.5
[2017-03-09 16:37] VITALS: PULSE 76
--- NOTE | 2017-03-09 21:59 | PN ---
DATE OF SERVICE: 03/09/2017 PRESENTING COMPLAINT: Lower GI bleed. INTERVAL HISTORY: This is a 76-year-old patient who was recently hospitalized on 02/23 and discharged on 02/25/2017. Originally patient had presented with dark stools. He underwent an EGD and colonoscopy and was found to have gastritis, Garcia's esophagus and chronic gastritis with hiatal hernia and sigmoid diverticulosis. Patient returned to the emergency department on 03/07 with intermittent bleeding from the rectum. On this admission, patient has had no bleeding at all from his rectum. Today patient is awaiting initiation of his capsule endoscopy and patient is relaxed and conversant. No acute distress noted or voiced. Review of systems done for constitutional, cardiovascular, gastrointestinal, pulmonary, with relevant findings as above. CURRENT MEDICATIONS: Albuterol, Xanax, Lipitor, Neurontin, Synthroid, Zestril, Protonix, Mirapex, Spiriva. PHYSICAL EXAMINATION: VITAL SIGNS: Temperature 96.5, pulse 78, respiratory rate 19, blood pressure 127/70, oxygen saturation 97% on room air. GENERAL APPEARANCE: Patient is lying in bed comfortably wearing his equipment necessary for his capsule endoscopy to be performed. No acute distress noted or voiced. Patient has no complaints at this time. Pupils equal. Conjunctivae normal. NECK: JVD not raised. Mass not palpable. LUNGS: Sounds diminished. Respiratory effort normal. Unlabored. CARDIOVASCULAR: S1, S2 normal. No edema noted. ABDOMEN: Soft, nontender. Liver and spleen not palpable. PSYCHIATRIC: Alert and oriented x3. Mood and affect are normal INVESTIGATIONS: White blood cell count 3.9, hemoglobin 8.1, platelet count 260. ASSESSMENT: 1. Acute gastrointestinal bleed in a patient who did have an EGD on admission showing gastritis Garcia's esophagus chronic gastritis hiatal hernia and sigmoid diverticulosis and currently undergoing capsule endoscopy for small bowel follow-through. 2. Sigmoid diverticulosis. 3. Chronic obstructive pulmonary disease in an ex-smoker. 4. Gastroesophageal reflux disease. 5. Hyperlipidemia. 6. Essential hypertension. 7. Primary osteoarthritis of multiple joints, bilateral. 8. Benign prosthetic hypertrophy. 9. Chronic hypoxic respiratory failure on 2 liters of oxygen at home from underlying chronic obstructive pulmonary disease. 10. Restless leg syndrome. 11. CODE STATUS FULL. 12. Acute blood loss anemia from recurrent gastrointestinal bleed. PLAN: Continue current medication and treatment plan. Await results of capsule endoscopy. No further bleeding today or on any subsequent days. Patient was seen and examined by nurse practitioner Lupe Yousif, all elements of the case was discussed with attending, Dr. Lorenz. I performed a history and physical examination of this patient and discussed the same with the dictator. I agree with the dictator's note. Any additional findings/opinions, etc. will be noted.
--- NOTE | 2017-03-10 10:43 | DS ---
DATE OF ADMISSION: 03/07/2017 DATE OF DISCHARGE: 03/09/2017 FINAL DIAGNOSES: 1. Acute lower gastrointestinal bleed likely from diverticulosis, possibly small bowel. 2. Sigmoid diverticulosis. 3. Chronic obstructive pulmonary disease in an ex-smoker. 4. Gastroesophageal reflux disease. 5. Hyperlipidemia. 6. Essential hypertension. 7. Primary osteoarthritis of multiple joints, bilaterally. 8. Benign prostatic hypertrophy. 9. Chronic hypoxic respiratory failure on 2 L of oxygen at home for underlying chronic obstructive pulmonary disease. 10. Acute blood loss anemia from gastrointestinal bleed. 11. Chronic gastritis. 12. Garcia's esophagus. HOSPITAL COURSE: This pleasant gentleman who was recently in the hospital had EGD and colonoscopy that showed Garcia's esophagus and chronic gastritis. Also found to have diverticulosis; yet again presented with bleeding from the lower end. Patient's hemoglobin at the time of discharge was 8.1. Patient did have a small bowel capsule study, the results which will not be available until next week. The patient had no further bleeding in the hospital, was hemodynamically stable. Keen to go home. ON EXAMINATION: LUNGS: Slightly decreased breath sounds. CARDIOVASCULAR: First and second seconds normal. PSYCH: Alert and oriented x3. Discharge planning more than 35 minutes. DISCHARGE MEDICATIONS: 1. Xanax 0.25 p.o. t.i.d. p.r.n. 2. ProAir HFA 1 puff q.i.d. p.r.n. 3. Aspirin 81 mg p.o. daily, to be started in 5 days, informed the patient. 4. Lipitor 80 mg p.o. daily. 5. Proscar 5 mg p.o. daily. 6. Neurontin 600 mg p.o. b.i.d. p.r.n. 7. Mirtazapine 45 mg p.o. q.h.s. 8. Mirapex 0.5 mg p.o. t.i.d. p.r.n. 9. CoQ10, 200 mg p.o. daily. 10. Levoxyl 150 mcg p.o. daily. 11. Ramipril 10 mg p.o. daily. 12. Tudorza 1 puff b.i.d. 13. Prozac 40 mg p.o. daily. 14. Protonix 40 mg p.o. daily. Follow up with Dr. Juan Granger on 03/30/17. Follow up with Dr. Leonardo Gutierrez on 03/16/17. CBC in 3 to 5 days. Discharge planning more than 35 minutes.
--- NOTE | 2017-03-10 10:43 | DS ---
DATE OF ADMISSION: 03/07/2017 DATE OF DISCHARGE: 03/09/2017 FINAL DIAGNOSIS: Acute gastrointestinal bleed. This could be a diverticular bleed possible or a small bowel bleed.
== END 2017-03-09 18:24 | disposition home or self-care (01) | DRG 378 ==
LOC: EC 11:51 → 4MS4W 15:23
PROVIDERS: ADMIT Hospitalist; ATTEND Hospitalist
DX: K57.31 Diverticulosis of large intestine without perforation or abscess with bleeding (principal); D62 Acute posthemorrhagic anemia; J96.11 Chronic respiratory failure with hypoxia; Z99.81 Dependence on supplemental oxygen; J44.9 Chronic obstructive pulmonary disease, unspecified; N13.8 Other obstructive and reflux uropathy; K21.9 Gastro-esophageal reflux disease without esophagitis; E78.5 Hyperlipidemia, unspecified; I10 Essential (primary) hypertension; M19.91 Primary osteoarthritis, unspecified site; G25.81 Restless legs syndrome; N40.1 Benign prostatic hyperplasia with lower urinary tract symptoms; K22.70 Barrett's esophagus without dysplasia; K29.50 Unspecified chronic gastritis without bleeding; K64.8 Other hemorrhoids; H40.9 Unspecified glaucoma; E03.9 Hypothyroidism, unspecified; K44.9 Diaphragmatic hernia without obstruction or gangrene; Z87.891 Personal history of nicotine dependence; Z86.73 Personal history of transient ischemic attack (TIA), and cerebral infarction without residual deficits; Z90.49 Acquired absence of other specified parts of digestive tract; F41.9 Anxiety disorder, unspecified; F32.9 Major depressive disorder, single episode, unspecified; Z90.79 Acquired absence of other genital organ(s); Z87.11 Personal history of peptic ulcer disease; Z79.82 Long term (current) use of aspirin; Z79.899 Other long term (current) drug therapy
CPT/HCPCS: 36415; 71020; 80053; 81001; 82272; 82550; 82553; 82728; 83540; 83550; 83735; 84484; 85025; 85027; 85610; 85730; 87086; 87324; 91110; 93005; 94640; 94760; 99285

== ENCOUNTER 2017-04-25 10:31 | Inpatient (IN) | payer MEDICARE ==
[2017-04-25] MEDS ORDERED: SODIUM CHLORIDE 0.9% 1,000 ML IV STA (10:45)
[2017-04-25] MEDS ORDERED: SODIUM CHLORIDE 0.9% 500 ML IV STA (10:45)
[2017-04-25] MEDS ORDERED: ONDANSETRON 4 MG/2 ML VIAL IVP STA (10:45)
[2017-04-25] MEDS ORDERED: PANTOPRAZOLE 40 MG/10 ML VIAL IVP STA (10:45)
--- NOTE | 2017-04-25 11:23 | ED ---
General Adult HPI - General Chief complaint: GI Bleed Stated complaint: blood in stool Time Seen by Provider: 04/25/17 10:45 Source: patient, RN notes reviewed, old records reviewed Mode of arrival: wheelchair Limitations: no limitations - History of Present Illness Initial comments: This is a 76-year-old male the ER for evaluation. Today but there is no aspirin for evaluation of GI bleed. History of GI bleed from unknown cause. No abdominal pain. No significant bleeding at this time. Patient did have 3 bloody bowel movements, he does admit to lightheadedness and weakness, worse with position change. No nausea or vomiting. No bloody no blood in vomit as he is not vomiting, patient states stool is red in color, not melanotic - Related Data Home Medications Medication Instructions Recorded Confirmed ALPRAZolam [Xanax] 0.25 mg PO TID PRN 12/03/15 04/25/17 Albuterol Sulfate [Proair Hfa] 1 puff INHALATION RT-Q4H PRN 12/03/15 04/25/17 Aspirin 81 mg PO DAILY 12/03/15 04/25/17 Atorvastatin [Lipitor] 80 mg PO DAILY 12/03/15 04/25/17 Mirtazapine 45 mg PO HS 12/03/15 04/25/17 Pramipexole [Mirapex] 0.5 mg PO TID PRN 12/03/15 04/25/17 Ubidecarenone [Co Q-10] 200 mg PO DAILY 12/03/15 04/25/17 Levothyroxine Sodium [Levoxyl] 150 mcg PO DAILY 10/08/16 04/25/17 Ramipril 10 mg PO DAILY 10/08/16 04/25/17 Aclidinium [place] [Tudorza 1 puff INHALATION RT-BID 02/22/17 04/25/17 Pressair] FLUoxetine HCL [PROzac] 40 mg PO DAILY 02/22/17 04/25/17 Fluticasone/Vilanterol [Breo 1 inhalation INHALATION RT-BID 04/25/17 04/25/17 Ellipta 200-25 Mcg INH] Hydrochlorothiazide [Hydrodiuril] 12.5 mg PO DAILY 04/25/17 04/25/17 Ibuprofen [Motrin] 600 mg PO Q8HR PRN 04/25/17 04/25/17 Multivitamins, Thera [Multivitamin 1 tab PO DAILY 04/25/17 04/25/17 (formulary)] Slow Fe 45 mg PO BID 04/25/17 04/25/17 Previous Rx's Medication Instructions Recorded Pantoprazole Sodium [Protonix] 40 mg PO DAILY #30 tablet. 02/25/17 Allergies Allergy/AdvReac Type Severity Reaction Status Date / Time Pepperoni AdvReac Nausea & Uncoded 04/25/17 10:38 Vomiting Review of Systems ROS Statement: Those systems with pertinent positive or pertinent negative responses have been documented in the HPI. ROS Other: All systems not noted in ROS Statement are negative. Past Medical History Past Medical History: COPD, Eye Disorder, GERD/Reflux, Hyperlipidemia, Hypertension, Osteoarthritis (OA), Prostate Disorder, Thyroid Disorder Additional Past Medical History / Comment(s): Restless leg syndrome. NEUROPATHY LEGS. SVT(ABLATION DONE), HOME O2 2 LITER N/C. SL GLAUCOMA. HEMORRHOIDS. BPH W/ OBSTRUCTION. diverticulosis, gastritis, hiatal hernia, barretts esophagus(per past discharge summary) History of Any Multi-Drug Resistant Organisms: None Reported Past Surgical History: Adenoidectomy, Cardiac Ablation, Cholecystectomy, Orthopedic Surgery, Tonsillectomy Additional Past Surgical History / Comment(s): cardiac ablation for SVT, mole removed from neck, R elbow surgery (tennis elbow), colonoscopy, circumcism, Vasectomy, R testicle surgery for infection, bilateral carpal tunnel releases. Past Anesthesia/Blood Transfusion Reactions: Family History of Problems w/ Anesthesia Additional Past Anesthesia/Blood Transfusion Reaction / Comment(s): DAUGHTER TAKES LONG TIME TO AWAKEN. Past Psychological History: Anxiety, Depression Smoking Status: Former smoker Past Alcohol Use History: Daily Past Drug Use History: None Reported - Past Family History Father Family Medical History: No Reported History Additional Family Medical History / Comment(s): Father was healthy and at age 84 yrs. Mother Family Medical History: Cancer Additional Family Medical History / Comment(s): Mother was healthy and in her 70's Brother(s) History Unknown: Yes Sister(s) Family Medical History: Osteoarthritis (OA) General Exam Limitations: no limitations General appearance: alert, in no apparent distress Head exam: Present: atraumatic, normocephalic, normal inspection Eye exam: Present: normal appearance, PERRL, EOMI. Absent: scleral icterus, conjunctival injection, periorbital swelling ENT exam: Present: normal exam, mucous membranes moist Neck exam: Present: normal inspection. Absent: tenderness, meningismus, lymphadenopathy Respiratory exam: Present: normal lung sounds bilaterally. Absent: respiratory distress, wheezes, rales, rhonchi, stridor Cardiovascular Exam: Present: regular rate, normal rhythm, normal heart sounds. Absent: systolic murmur, diastolic murmur, rubs, gallop, clicks GI/Abdominal exam: Present: soft, normal bowel sounds. Absent: distended, tenderness, guarding, rebound, rigid Rectal exam: Present: bloody stool Extremities exam: Present: normal inspection, full ROM, normal capillary refill. Absent: tenderness, pedal edema, joint swelling, calf tenderness Back exam: Present: normal inspection Neurological exam: Present: alert, oriented X3, CN II-XII intact Psychiatric exam: Present: normal affect, normal mood Skin exam: Present: warm, dry, intact, normal color. Absent: rash Course Vital Signs 04/25/17 04/25/17 04/25/17 10:35 11:13 12:13 Temperature 98.1 F 98.9 F Pulse Rate 95 87 91 Respiratory 20 18 16 Rate Blood Pressure 136/79 138/65 146/67 O2 Sat by Pulse 95 94 L 93 L Oximetry - Reevaluation(s) Reevaluation #1: 04/25/17 12:48 Patient states he does feel mildly lightheaded and weak, no significant bloody bowel movements while in emergency room Medical Decision Making - Medical Decision Making 76 now the ER brighter blood in his stool 3, history of GI bleed, patient with anemia, will be admitted for GI evaluation, will hold transfusion at this time - Lab Data Result diagrams: 04/25/17 11:00 04/25/17 11:00 Lab Results 04/25/17 04/25/17 04/25/17 Range/Units 11:00 11:00 11:00 WBC 9.0 (3.8-10.6) k/uL RBC 3.97 L (4.30-5.90) m/uL Hgb 8.8 L (13.0-17.5) gm/dL Hct 31.1 L (39.0-53.0) % MCV 78.5 L (80.0-100.0) fL MCH 22.1 L (25.0-35.0) pg MCHC 28.2 L (31.0-37.0) g/dL RDW 18.7 H (11.5-15.5) % Plt Count 438 (150-450) k/uL Neutrophils % 78 % Lymphocytes % 14 % Monocytes % 3 % Eosinophils % 3 % Basophils % 1 % Neutrophils # 7.0 (1.3-7.7) k/uL Lymphocytes # 1.2 (1.0-4.8) k/uL Monocytes # 0.3 (0-1.0) k/uL Eosinophils # 0.3 (0-0.7) k/uL Basophils # 0.0 (0-0.2) k/uL Hypochromasia Marked Poikilocytosis Moderate Anisocytosis Slight Microcytosis Slight PT (9.0-12.0) sec INR (<1.1) APTT (22.0-30.0) sec Sodium 139 (137-145) mmol/L Potassium 5.1 (3.5-5.1) mmol/L Chloride 103 (98-107) mmol/L Carbon Dioxide 25 (22-30) mmol/L Anion Gap 11 mmol/L BUN 15 (9-20) mg/dL Creatinine 0.80 (0.66-1.25) mg/dL Est GFR (MDRD) Af Amer >60 (>60 ml/min/1.73 sqM) Est GFR (MDRD) Non-Af >60 (>60 ml/min/1.73 sqM) Glucose 162 H (74-99) mg/dL Plasma Lactic Acid Rolan (0.7-2.0) mmol/L Calcium 8.7 (8.4-10.2) mg/dL Magnesium 2.1 (1.6-2.3) mg/dL Total Bilirubin 1.0 (0.2-1.3) mg/dL AST 48 (17-59) U/L ALT 32 (21-72) U/L Alkaline Phosphatase 123 (38-126) U/L Total Creatine Kinase 119 (55-170) U/L CK-MB (CK-2) 2.1 (0.0-2.4) ng/mL CK-MB (CK-2) Rel Index 1.8 Troponin I <0.012 (0.000-0.034) ng/mL Total Protein 7.5 (6.3-8.2) g/dL Albumin 4.3 (3.5-5.0) g/dL Lipase 102 (23-300) U/L Blood Type Blood Type Recheck Antibody Screen Spec Expiration Date 04/25/17 04/25/17 04/25/17 Range/Units 11:00 11:00 11:00 WBC (3.8-10.6) k/uL RBC (4.30-5.90) m/uL Hgb (13.0-17.5) gm/dL Hct (39.0-53.0) % MCV (80.0-100.0) fL MCH (25.0-35.0) pg MCHC (31.0-37.0) g/dL RDW (11.5-15.5) % Plt Count (150-450) k/uL Neutrophils % % Lymphocytes % % Monocytes % % Eosinophils % % Basophils % % Neutrophils # (1.3-7.7) k/uL Lymphocytes # (1.0-4.8) k/uL Monocytes # (0-1.0) k/uL Eosinophils # (0-0.7) k/uL Basophils # (0-0.2) k/uL Hypochromasia Poikilocytosis Anisocytosis Microcytosis PT 9.8 (9.0-12.0) sec INR 1.0 (<1.1) APTT 21.4 L (22.0-30.0) sec Sodium (137-145) mmol/L Potassium (3.5-5.1) mmol/L Chloride (98-107) mmol/L Carbon Dioxide (22-30) mmol/L Anion Gap mmol/L BUN (9-20) mg/dL Creatinine (0.66-1.25) mg/dL Est GFR (MDRD) Af Amer (>60 ml/min/1.73 sqM) Est GFR (MDRD) Non-Af (>60 ml/min/1.73 sqM) Glucose (74-99) mg/dL Plasma Lactic Acid Rolan 2.3 H* (0.7-2.0) mmol/L Calcium (8.4-10.2) mg/dL Magnesium (1.6-2.3) mg/dL Total Bilirubin (0.2-1.3) mg/dL AST (17-59) U/L ALT (21-72) U/L Alkaline Phosphatase (38-126) U/L Total Creatine Kinase (55-170) U/L CK-MB (CK-2) (0.0-2.4) ng/mL CK-MB (CK-2) Rel Index Troponin I (0.000-0.034) ng/mL Total Protein (6.3-8.2) g/dL Albumin (3.5-5.0) g/dL Lipase (23-300) U/L Blood Type O Positive Blood Type Recheck No Antibody Screen NEGATIVE Spec Expiration Date 04/28/20172299 Disposition Clinical Impression: GI bleed, Anemia Disposition: ADMITTED IP TO THIS HOSP Condition: Fair Instructions: Gastrointestinal Bleeding (ED) Referrals: Leonardo Gutierrez MD [Primary Care Provider] - 1-2 days
[2017-04-25 11:26] LABS: Anisocytosis Slight; Basophils % (A) 1 %; CH 22.1; CHCM 28.2; Eosinophils # (A) 0.3 k/uL (0-0.7); Eosinophils % (A) 3 %; HCT 31.1 % (39.0-53.0); HDW 4.03; HGB 8.8 gm/dL (13.0-17.5); Hypochromasia Marked; Luc # (Auto) 0.15; Luc % (Auto) 2; Lymphocytes # (A) 1.2 k/uL (1.0-4.8); Lymphocytes % (A) 14 %; MCH 22.1 pg (25.0-35.0); MCHC 28.2 g/dL (31.0-37.0); MCV 78.5 fL (80.0-100.0); Mean Platelet Volume 6.4; Microcytosis Slight; Monocytes # (A) 0.3 k/uL (0-1.0); Monocytes % (A) 3 %; Neutrophils % (A) 78 %; Poikilocytosis Moderate; RBC 3.97 m/uL (4.30-5.90); RDW 18.7 % (11.5-15.5)
[2017-04-25 11:36] LABS: ALT 32 U/L (21-72); AST 48 U/L (17-59); Alkaline Phosphatase 123 U/L (38-126); Anion Gap 11 mmol/L; Blood Urea Nitrogen 15 mg/dL (9-20); Calcium 8.7 mg/dL (8.4-10.2); Carbon Dioxide 25 mmol/L (22-30); Chloride 103 mmol/L (98-107); Glucose 162 mg/dL (74-99); Magnesium 2.1 mg/dL (1.6-2.3); Non-African American GFR(MDRD) >60 (>60 ml/min/1.73 sqM); Potassium 5.1 mmol/L (3.5-5.1); Sodium 139 mmol/L (137-145); Total Protein 7.5 g/dL (6.3-8.2)
[2017-04-25 11:51] LABS: Creatine Kinase 119 U/L (55-170)
[2017-04-25 11:53] LABS: Prothrombin Time 9.8 sec (9.0-12.0)
[2017-04-25 11:59] LABS: Partial Thromboplastin Time 21.4 sec (22.0-30.0)
[2017-04-25 12:02] LABS: Creatine Kinase MB 2.1 ng/mL (0.0-2.4); Troponin I <0.012 ng/mL (0.000-0.034)
[2017-04-25] MEDS ORDERED: SODIUM CHLORIDE 0.9% 1,000 ML IV ONE (12:45)
[2017-04-25] MEDS: SODIUM CHLORIDE 0.9% 1,000 ML IV SCH (15:12)
[2017-04-25 15:33] LABS: Anisocytosis Slight; Basophils # (A) 0.1 k/uL (0-0.2); Basophils % (A) 0 %; CH 21.9; CHCM 28.7; Eosinophils # (A) 0.1 k/uL (0-0.7); Eosinophils % (A) 1 %; HDW 4.04; HGB 8.3 gm/dL (13.0-17.5); Hypochromasia Marked; Luc # (Auto) 0.34; Luc % (Auto) 2; Lymphocytes # (A) 0.8 k/uL (1.0-4.8); Lymphocytes % (A) 5 %; MCH 22.8 pg (25.0-35.0); MCHC 29.7 g/dL (31.0-37.0); MCV 76.7 fL (80.0-100.0); Microcytosis Moderate; Monocytes # (A) 0.6 k/uL (0-1.0); Monocytes % (A) 4 %; Neutrophils # (A) 13.6 k/uL (1.3-7.7); Neutrophils % (A) 88 %; Poikilocytosis Moderate; RBC 3.65 m/uL (4.30-5.90); RDW 18.8 % (11.5-15.5); WBC 15.5 k/uL (3.8-10.6); WBC (Perox) 15.53
[2017-04-25] MEDS ORDERED: ALBUTEROL NEBULIZED 2.5 MG/3 ML INHALATION PRN (15:34)
[2017-04-25] MEDS: ALPRAZolam 0.25 MG TAB PO PRN (15:50)
[2017-04-25 15:51] LABS: % Iron Saturation 3.6 % (20-50)
[2017-04-25] MEDS: FLUoxetine HCL 20 MG CAP PO SCH (16:05)
[2017-04-25] MEDS: PRAMIPEXOLE 0.5 MG TAB PO PRN (16:10)
[2017-04-25] MEDS ORDERED: HYDROcodone/APAP 5-325MG 1 EACH TAB PO PRN (16:15)
[2017-04-25] MEDS: PANTOPRAZOLE 40 MG/10 ML VIAL IVP SCH (20:02)
[2017-04-25] MEDS: MIRTAZAPINE 45 MG TABLET PO SCH (20:02)
--- NOTE | 2017-04-25 20:54 | HP ---
DATE OF ADMISSION: 04/25/2017 CHIEF COMPLAINT: Blood in the stool. HISTORY OF PRESENT ILLNESS: Mr. Coleman is a 76-year-old man with a known history of hypertension, hyperlipidemia, COPD on home oxygen and history of GI bleed, in February 2017, status post EGD and colonoscopy at that time and suspected possible small bowel diverticulosis, came back to the hospital with rectal bleeding since yesterday. Patient does have a history of sigmoid diverticulosis as well. Otherwise denied any complaints of fever, chills. No diarrhea. No constipation. Denied any NSAID use including Motrin. The patient otherwise denied any recent illnesses or sick contacts at room with no recent travel. REVIEW OF SYSTEMS: CONSTITUTIONAL: No fever. No chills. No weakness. RESPIRATORY: No cough or sputum production. No worsening shortness of breath. CARDIOVASCULAR: No chest pain. No leg swelling. No palpitations. ABDOMEN: Patient does not have any nausea. No nausea or vomiting. No abdominal pain. Patient does have a rectal bleed. GENITOURINARY: No dysuria. No hematuria. ENDOCRINE: Negative. PSYCHIATRY: Negative. SKIN: Negative. MUSCULOSKELETAL: Negative. All other fourteen-point review of systems negative except as above. PAST MEDICAL HISTORY: COPD on home oxygen and gastroesophageal reflux disease, eye disorder, hyperlipidemia, hypertension, osteoarthritis, benign prostatic hypertrophy, restless leg syndrome, neuropathy legs, nondiabetic, history of SVT, status post ablation, glaucoma, hemorrhoids, hiatal hernia, Garcia's esophagus. PAST SURGICAL HISTORY: Adenoidectomy, cardiac ablation, cholecystectomy, orthopedic surgery, tonsillectomy cardiac ablation for SVT, mole removed from neck, right elbow surgery, colonoscopy, vasectomy, right testicle surgery for infection. Bilateral carpal tunnel release. PSYCHOSOCIAL HISTORY: Anxiety and depression. SOCIAL HISTORY: Patient is a former smoker. Uses alcohol daily. Denied any alcohol. Denied any drugs or IVDU. FAMILY HISTORY: Father had no reported history, was healthy and at age 84 years. Mother was healthy and in her 70s and mother had cancer. Exact etiology not known. Sister had osteoarthritis. Home medication include: 1. Xanax. 2. Pro-Air. 3. Aspirin. 4. Atorvastatin. 5. Mirtazapine. 6. Mirapex. 7. Coenzyme-Q. 8. Levothyroxine. 9. Ramipril. 10. Tudorza. 11. Prozac. 12. Breo. 13. Hydrochlorothiazide. 14. Ibuprofen. 15. Multivitamin. 16. ( ). 17. Protonix. ALLERGIES: PEPPERONI. PHYSICAL EXAMINATION: A 76-year-old male lying in bed comfortably, awake, alert, oriented x3. Appears to be in no apparent distress. VITALS: Blood pressure is 138/65, pulse is 87, respirations 18, temperature afebrile, pulse ox 95% on 2 L nasal cannula. HEENT: Atraumatic, normocephalic. Neck is supple. No JVD. CVS: S1, S2 heard. No murmurs, no gallop, no rub. LUNGS: Bilateral air entry is present. Diminished breath sounds bilateral basally. Nonlabored breathing. ABDOMEN: Soft, nontender. Bowel sounds present. CENTRAL NERVOUS SYSTEM: Awake, alert and oriented x3. No focal deficits. EXTREMITIES: No edema. Pulses palpable bilaterally. No clubbing or cyanosis. PSYCHIATRIC: Cooperative. LABORATORY DATA: WBC 15.5, hemoglobin 8.3, platelets 439, MCV is 76.7, RDW 18.8, absolute neutrophil count is 13.6, sodium 139, potassium 5.1, chloride 103, bicarb is 25. BUN 15, creatinine 0.8. Lactic acid 2.3. Came down to 1.3 now. Troponin less than 0.012. Amylase and lipase is not elevated. IMPRESSION: 1. Lower gastrointestinal bleed possibly diverticular in nature. Patient had EGD with colonoscopy and found to have gastritis and Garcia's esophagus and chronic gastritis with hiatal hernia and sigmoid diverticulosis. The patient will be continued on Protonix and continue with n.p.o. and gastroenterology has been consulted for further evaluation. We will monitor hematocrit and hemoglobin. Hemoglobin is actually stable compared to last admission. Hemoglobin dropped from 8.8 to 8.3 from admission. 2. Acute blood loss anemia most likely secondary to gastrointestinal bleed. 3. History of chronic obstructive pulmonary disease on home oxygen 2 L. Not in exacerbation. 4. History of sigmoid diverticulosis. 5. Gastroesophageal reflux disease. 6. Garcia's esophagus. 7. Hyperlipidemia. 8. Hypertension. 9. Osteoarthritis of multiple joints. 10. Benign prostatic hypertrophy. 11. Chronic hypoxic respiratory failure secondary to chronic obstructive pulmonary disease on home oxygen dependent 2 L via nasal cannula. 12. Restless leg syndrome. 13. CODE STATUS is FULL. 14. Deep venous thrombosis prophylaxis with SCDs. DISCUSSION AND PLAN: Patient will be continued on Protonix. ( ) and monitor H&H and n.p.o. follow up closely. Gastroenterology is following the patient. Continue IV fluids and further recommendations based on clinical course.
[2017-04-25] MEDS: SYMBICORT 160-4.5 MCG INHALER INHALATION SCH (21:03)
[2017-04-26] MEDS: SODIUM CHLORIDE 0.9% 1,000 ML IV SCH (05:28)
[2017-04-26] MEDS: LEVOTHYROXINE 75 MCG TAB PO SCH (06:40)
[2017-04-26] MEDS: SYMBICORT 160-4.5 MCG INHALER INHALATION SCH ×2 (07:52→20:04)
[2017-04-26] MEDS: TIOTROPIUM 18 MCG/PUFF INHALER INHALATION SCH (07:52)
[2017-04-26] MEDS: PANTOPRAZOLE 40 MG/10 ML VIAL IVP SCH ×2 (09:20→20:41)
[2017-04-26] MEDS: MULTIVITAMINS, THERA 1 EACH TAB PO SCH (09:21)
[2017-04-26] MEDS: ATORVASTATIN 80 MG TAB PO SCH (09:21)
[2017-04-26] MEDS: FLUoxetine HCL 20 MG CAP PO SCH (09:21)
--- NOTE | 2017-04-26 10:41 | P.CONS ---
History of Present Illness - Reason for Consult Consult date: 04/26/17 Rectal bleeding Requesting physician: Fitz Hartley - History of Present Illness 76-year-old gentleman patient of Dr. Gutierrez with a past medical history of diverticulosis with recent hospitalization January 2017 for suspected diverticular bleed, remote peptic ulcer disease, CVA/TIA, O2 dependent COPD, BPH status post TURP December 2016, anxiety, depression, cardiac arrhythmia, hypertension, and hyperlipidemia. Patient presents with rectal discomfort burgundy bowel movement 1 yesterday without recurrence. Denies hematemesis fever or chills. Denies abdominal pain just rectal discomfort. "I think it's my hemorrhoids". He underwent EGD colonoscopy 02/24/2017 followed by small bowel capsule endoscopy for iron deficiency anemia rectal bleeding 2 months ago. EGD colonoscopy reported short segment of Garcia's esophagus without complicated reflux disease. Sigmoid diverticulosis with low-grade internal hemorrhoids. Capsule endoscopy february 2017 no evidence of bleeding or angiectasia. Admission hemoglobin 8.8 presently 8.3. MCV 78. Platelet for 38. White count 9-15.5. INR 1.0. BUN 15. Creatinine 0.8. Hemoglobin February 2017 8.1. Iron 14. Saturation 3.6%. Ferritin 11. No aspirin and NSAIDs or alcohol. Denies constipation. He discontinued aspirin and NSAID therapy after previous admission in January. Review of Systems Constitutional: Denies fever, chills, sweats, weight gain, or loss. HEENT: Negative for migraines, blurred vision or loss, earaches, drainage, tinnitus, oral mucosal lesions, dysphagia, or odynophagia. Cardiac: Hyperlipidemia, hypertension, arrhythmia Negative for chest pain, arrhythmias, or palpitation. Respiratory: O2-dependent COPD Negative for shortness of breath, hemoptysis, cough, or sputum production. Gastrointestinal: See HPI for pertinent findings. Genitourinary: BPH. Negative for hematuria, urgency, frequency, polyuria, dysuria, or penile discharge. Musculoskeletal: Osteoarthritis Negative for muscle aches, swelling, arthritis, and arthralgias. Neurologic: Restless leg syndrome Negative for stroke or TIA. Endocrine: Negative for thyroid problems. Skin: Negative for rash or itching. Psychiatric: History for depression and anxiety All systems: negative (See HPI) Past Medical History Past Medical History: COPD, Eye Disorder, GERD/Reflux, Hyperlipidemia, Hypertension, Osteoarthritis (OA), Prostate Disorder, Thyroid Disorder Additional Past Medical History / Comment(s): Restless leg syndrome. NEUROPATHY LEGS. SVT(ABLATION DONE), HOME O2 2 LITER N/C. SL GLAUCOMA. HEMORRHOIDS. BPH W/ OBSTRUCTION. diverticulosis, gastritis, hiatal hernia, barretts esophagus(per past discharge summary) History of Any Multi-Drug Resistant Organisms: None Reported Past Surgical History: Adenoidectomy, Cardiac Ablation, Cholecystectomy, Orthopedic Surgery, Tonsillectomy Additional Past Surgical History / Comment(s): cardiac ablation for SVT, mole removed from neck, R elbow surgery (tennis elbow), colonoscopy, circumcism, Vasectomy, R testicle surgery for infection, bilateral carpal tunnel releases. Past Anesthesia/Blood Transfusion Reactions: Family History of Problems w/ Anesthesia Additional Past Anesthesia/Blood Transfusion Reaction / Comm: DAUGHTER TAKES LONG TIME TO AWAKEN. Past Psychological History: Anxiety, Depression Additional Psychological History / Comment(s): pt's pased away 2005.Pt 'S DAUGHTER KENNA LIVES WITH HIM AND OTHER FAMILY MEMBERS HELP OUT WELL. lives in one level home that has 5 steps to enter. has 2 dogs, 1 cat. no outside services but has home 02. pt does'nt use any assitive devices when up but can only ambulate short distances. Smoking Status: Former smoker Past Alcohol Use History: Daily Past Drug Use History: None Reported - Past Family History Father Family Medical History: No Reported History Additional Family Medical History / Comment(s): Father was healthy and at age 84 yrs. Mother Family Medical History: Cancer Additional Family Medical History / Comment(s): Mother was healthy and in her 70's Brother(s) History Unknown: Yes Sister(s) Family Medical History: Osteoarthritis (OA) Medications and Allergies Home Medications Medication Instructions Recorded Confirmed Type ALPRAZolam [Xanax] 0.25 mg PO TID PRN 12/03/15 04/25/17 History Albuterol Sulfate [Proair Hfa] 1 puff INHALATION RT-Q4H PRN 12/03/15 04/25/17 History Aspirin 81 mg PO DAILY 12/03/15 04/25/17 History Atorvastatin [Lipitor] 80 mg PO DAILY 12/03/15 04/25/17 History Mirtazapine 45 mg PO HS 12/03/15 04/25/17 History Pramipexole [Mirapex] 0.5 mg PO TID PRN 12/03/15 04/25/17 History Ubidecarenone [Co Q-10] 200 mg PO DAILY 12/03/15 04/25/17 History Levothyroxine Sodium [Levoxyl] 150 mcg PO DAILY 10/08/16 04/25/17 History Ramipril 10 mg PO DAILY 10/08/16 04/25/17 History Aclidinium [place] [Tudorza 1 puff INHALATION RT-BID 02/22/17 04/25/17 History Pressair] FLUoxetine HCL [PROzac] 40 mg PO DAILY 02/22/17 04/25/17 History Fluticasone/Vilanterol [Breo 1 inhalation INHALATION RT-BID 04/25/17 04/25/17 History Ellipta 200-25 Mcg INH] Hydrochlorothiazide [Hydrodiuril] 12.5 mg PO DAILY 04/25/17 04/25/17 History Ibuprofen [Motrin] 600 mg PO Q8HR PRN 04/25/17 04/25/17 History Multivitamins, Thera [Multivitamin 1 tab PO DAILY 04/25/17 04/25/17 History (formulary)] Slow Fe 45 mg PO BID 04/25/17 04/25/17 History Allergies Allergy/AdvReac Type Severity Reaction Status Date / Time Pepperoni AdvReac Nausea & Uncoded 04/25/17 10:38 Vomiting Physical Exam Vitals: Vital Signs Temp Pulse Pulse Resp BP BP Pulse Ox 04/26/17 07:00 96.8 F L 73 20 134/76 95 04/25/17 23:00 97.9 F 81 20 132/74 95 04/25/17 14:16 98.0 F 91 16 123/84 93 L 04/25/17 13:27 98.7 F 87 18 147/80 95 04/25/17 12:13 91 16 146/67 93 L 04/25/17 11:13 98.9 F 87 18 138/65 94 L 04/25/17 10:35 98.1 F 95 20 136/79 95 Intake and Output 04/25/17 04/26/17 04/26/17 22:59 06:59 14:59 Intake Total 800 750 Output Total 1100 800 300 Balance -300 -50 -300 Intake: Oral 800 750 Output: Urine 1100 800 300 Other: Voiding Method Urinal General appearance: The patient is alert, oriented, in no acute distress. HET: Head is normocephalic and atraumatic. Pupils are equal and reactive. Oropharynx is clear without lesions. Neck: Supple without lymphadenopathy. Trachea midline. Heart: S1 S2. Regular rate and rhythm. Lungs: No crackles or wheezes are heard. Abdomen: Soft, nontender, nondistended with bowel sounds. No peritoneal signs. No palpable organomegaly or masses. Extremities: Normal skin color and turgor. No cyanosis, rash, ulceration, clubbing, or edema. Radial and pedal pulses are 2/4 bilaterally. Neurological: No focal deficits. Strength and sensation are grossly intact. Results CBC & Chem 7: 04/25/17 15:13 04/25/17 11:00 Labs: Abnormal Lab Results - Last 24 Hours (Table) 04/25/17 04/25/17 04/25/17 Range/Units 11:00 11:00 11:00 WBC (3.8-10.6) k/uL RBC 3.97 L (4.30-5.90) m/uL Hgb 8.8 L (13.0-17.5) gm/dL Hct 31.1 L (39.0-53.0) % MCV 78.5 L (80.0-100.0) fL MCH 22.1 L (25.0-35.0) pg MCHC 28.2 L (31.0-37.0) g/dL RDW 18.7 H (11.5-15.5) % Neutrophils # (1.3-7.7) k/uL Lymphocytes # (1.0-4.8) k/uL APTT 21.4 L (22.0-30.0) sec Glucose 162 H (74-99) mg/dL Plasma Lactic Acid Rolan (0.7-2.0) mmol/L Iron (49-181) ug/dL % Saturation (20-50) % Ferritin (18-464) ng/mL 04/25/17 04/25/17 04/25/17 Range/Units 11:00 15:13 15:13 WBC 15.5 H (3.8-10.6) k/uL RBC 3.65 L (4.30-5.90) m/uL Hgb 8.3 L (13.0-17.5) gm/dL Hct 28.0 L (39.0-53.0) % MCV 76.7 L (80.0-100.0) fL MCH 22.8 L (25.0-35.0) pg MCHC 29.7 L (31.0-37.0) g/dL RDW 18.8 H (11.5-15.5) % Neutrophils # 13.6 H (1.3-7.7) k/uL Lymphocytes # 0.8 L (1.0-4.8) k/uL APTT (22.0-30.0) sec Glucose (74-99) mg/dL Plasma Lactic Acid Rolan 2.3 H* (0.7-2.0) mmol/L Iron 14 L (49-181) ug/dL % Saturation 3.6 L (20-50) % Ferritin 11 L (18-464) ng/mL Assessment and Plan (1) Rectal bleeding Narrative/Plan: 76-year-old gentleman presents with rectal discomfort burgundy colored bowel movement 1 with recent hospitalization for symptomatic anemia status post EGD colonoscopy small bowel capsule endoscopy with findings of sigmoid diverticulosis, hemorrhoids, short segment of Garcia's esophagus. Etiology of bleeding could be diverticular in nature possible hemorrhoidal or a combination of both. Hemoglobin relatively stable on admission compared from previous hospitalization. Status: Acute (2) Acute blood loss anemia Narrative/Plan: Iron deficiency anemia Status: Acute Plan: 1. Continue to observe and monitor CBC. 2. GI prophylaxis. Iron supplementation. 3. Light diet as tolerated. 4. Repeat endoscopy not planned at this time. We'll follow closely with you. Thank you for this kind referral and the opportunity to participate in the care of your patient. This consultation was discussed with Dr. Granger. The impression and plan of care have been directed as dictated.
[2017-04-26] MEDS: PRAMIPEXOLE 0.5 MG TAB PO PRN ×3 (11:08→22:34)
[2017-04-26 15:13] VITALS: BMI 25.4
[2017-04-26] MEDS: FERROUS SULFATE 325 MG TAB PO SCH (16:59)
[2017-04-26] MEDS: MIRTAZAPINE 45 MG TABLET PO SCH (20:40)
[2017-04-27] MEDS: LEVOTHYROXINE 75 MCG TAB PO SCH (06:25)
[2017-04-27 07:49] LABS: Anisocytosis Slight; Basophils % (A) 1 %; CH 21.9; Eosinophils # (A) 0.1 k/uL (0-0.7); Eosinophils % (A) 2 %; HCT 26.3 % (39.0-53.0); HDW 4.11; HGB 7.8 gm/dL (13.0-17.5); Hypochromasia Marked; Luc % (Auto) 3; Lymphocytes # (A) 1.3 k/uL (1.0-4.8); Lymphocytes % (A) 20 %; MCH 22.4 pg (25.0-35.0); MCHC 29.5 g/dL (31.0-37.0); MCV 75.8 fL (80.0-100.0); Mean Platelet Volume 6.3; Microcytosis Moderate; Monocytes # (A) 0.3 k/uL (0-1.0); Monocytes % (A) 5 %; Neutrophils # (A) 4.5 k/uL (1.3-7.7); Neutrophils % (A) 69 %; Poikilocytosis Moderate; RBC 3.47 m/uL (4.30-5.90); WBC 6.6 k/uL (3.8-10.6); WBC (Perox) 7.03
[2017-04-27] MEDS: TIOTROPIUM 18 MCG/PUFF INHALER INHALATION SCH (07:50)
[2017-04-27] MEDS: SYMBICORT 160-4.5 MCG INHALER INHALATION SCH ×2 (07:50→20:00)
[2017-04-27 08:12] LABS: Anion Gap 7 mmol/L; Blood Urea Nitrogen 11 mg/dL (9-20); Calcium 8.7 mg/dL (8.4-10.2); Carbon Dioxide 27 mmol/L (22-30); Chloride 105 mmol/L (98-107); Glucose 85 mg/dL (74-99); Non-African American GFR(MDRD) >60 (>60 ml/min/1.73 sqM); Potassium 4.5 mmol/L (3.5-5.1); Sodium 139 mmol/L (137-145)
[2017-04-27] MEDS: ATORVASTATIN 80 MG TAB PO SCH (08:31)
[2017-04-27] MEDS: SENNOSIDES-DOCUSATE SODIUM 1 EACH TAB PO SCH (08:31)
[2017-04-27] MEDS: PANTOPRAZOLE 40 MG/10 ML VIAL IVP SCH (08:32)
[2017-04-27] MEDS: MULTIVITAMINS, THERA 1 EACH TAB PO SCH (08:32)
[2017-04-27] MEDS: FERROUS SULFATE 325 MG TAB PO SCH ×2 (08:32→16:21)
[2017-04-27] MEDS: FLUoxetine HCL 20 MG CAP PO SCH (08:32)
--- NOTE | 2017-04-27 08:43 | P.PN ---
Subjective Principal diagnosis: Rectal bleeding no recurrence of rectal bleeding. Feels well. Tolerating full liquids. hemoglobin 7.8. White count 6.6. BUN 11. Denies abdominal pain. Objective - Vital Signs Vital signs: Vital Signs Temp 97.0 F L 04/27/17 07:00 Pulse 83 04/27/17 07:00 Resp 16 04/27/17 07:00 BP 141/60 04/27/17 07:00 Pulse Ox 96 04/27/17 07:00 Intake & Output 04/26/17 04/27/17 04/27/17 18:59 06:59 18:59 Intake Total 500 Output Total 1700 2750 Balance -1700 -2250 Weight 80.286 kg Intake: Oral 500 Output: Urine 1700 2750 Other: Voiding Method Urinal # Voids 5 # Bowel Movements 1 1 - Exam General appearance: The patient is alert, oriented, in no acute distress. HET: Head is normocephalic and atraumatic. Pupils are equal and reactive. Oropharynx is clear without lesions. Neck: Supple without lymphadenopathy. Trachea midline. Heart: S1 S2. Regular rate and rhythm. Lungs: No crackles or wheezes are heard. Abdomen: Soft, nontender, nondistended with bowel sounds. No peritoneal signs. No palpable organomegaly or masses. Extremities: Normal skin color and turgor. No cyanosis, rash, ulceration, clubbing, or edema. Radial and pedal pulses are 2/4 bilaterally. Neurological: No focal deficits. Strength and sensation are grossly intact. - Labs CBC & Chem 7: 04/27/17 07:06 04/27/17 07:06 Labs: Abnormal Lab Results - Last 24 Hours (Table) 04/27/17 Range/Units 07:06 RBC 3.47 L (4.30-5.90) m/uL Hgb 7.8 L (13.0-17.5) gm/dL Hct 26.3 L (39.0-53.0) % MCV 75.8 L (80.0-100.0) fL MCH 22.4 L (25.0-35.0) pg MCHC 29.5 L (31.0-37.0) g/dL RDW 19.0 H (11.5-15.5) % Assessment and Plan (1) Rectal bleeding Narrative/Plan: 76-year-old gentleman presents with rectal discomfort burgundy colored bowel movement 1 with recent hospitalization for symptomatic anemia status post EGD colonoscopy small bowel capsule endoscopy with findings of sigmoid diverticulosis, hemorrhoids, short segment of Garcia's esophagus. Etiology of bleeding could be diverticular in nature possible hemorrhoidal or a combination of both. Hemoglobin relatively stable on admission compared from previous hospitalization. Status: Acute (2) Acute blood loss anemia Narrative/Plan: Iron deficiency anemia Status: Acute Plan: 1. Continue to observe and monitor CBC. 2. GI prophylaxis. Iron supplementation. 3. Light diet low residue as tolerated. 4. Repeat endoscopy not planned at this time. We'll follow closely with you. Assessment and plan of care discussed with Dr. Granger
[2017-04-27] MEDS: PRAMIPEXOLE 0.5 MG TAB PO PRN ×2 (10:08→20:26)
[2017-04-27] MEDS: PANTOPRAZOLE 40 MG TABLET PO SCH (16:21)
[2017-04-27] MEDS: MIRTAZAPINE 45 MG TABLET PO SCH (20:26)
[2017-04-27] MEDS: ALPRAZolam 0.25 MG TAB PO PRN (21:43)
[2017-04-28] MEDS: LEVOTHYROXINE 75 MCG TAB PO SCH (06:23)
--- NOTE | 2017-04-28 06:33 | PN ---
DATE OF SERVICE: 04/27/2017 INTERVAL HISTORY: Mr. Coleman is a 76-year-old male with known history of hypertension, COPD, hyperlipidemia and home oxygen dependent with recent history of GI bleed in February 2017, status post EGD, colonoscopy, ( ) endoscopy with no evidence of active bleeding and was suspected to have a small bowel diverticulosis, admitted to the hospital with rectal bleeding. Hemoglobin was fairly stable with ( ) from 7.8 today. Otherwise, patient did have a near syncopal episode while he was using restroom this afternoon. Apparently, patient was not wearing his oxygen. At that time, pulse ox was 83% . Patient ( ) onto the floor. Otherwise, patient is slightly ( ) after placing on oxygen and is currently lying in bed comfortably and no acute overnight issues otherwise. No chest pain. No short of breath. No evidence of rectal bleeding. Will continue to monitor hemoglobin one more day and repeat labs in the a.m. GI is following this patient. Complete review of systems negative as above. Current medications reviewed. PHYSICAL EXAMINATION: A 76-year-old male lying in bed, comfortably. Awake, alert, oriented x3. Appears to be in no apparent distress. VITALS: Blood pressure is 122/69. Pulse is 79. Respirations are 16. Temperature afebrile. Pulse ox 92% on room air. HEENT: Atraumatic, normocephalic. NECK: Supple. No JVD. CVS EXAM: S1 and S2 heard. No murmurs, no gallop, no rub. LUNGS: Bilateral air entry. Unlabored breathing. ABDOMEN: Soft, nontender. Bowel sounds are present. CANS VACUUM TESTER: Awake, alert and oriented x3. EXTREMITIES: ( ) . There is no clubbing or cyanosis. PSYCHIATRIC: Cooperative. LABORATORY DATA: WBC 6.6, hemoglobin 7.8, platelets 365, MCV 75.8. Sodium 139, potassium 4.5, chloride 105, bicarb 27, BUN 11, creatinine 0.85. Calcium 8.7. IMPRESSION: 1. Lower gastrointestinal bleed, possibly diverticular in nature. 2. Abdominal pain is resolved now. 3. Patient had ( ) 7.8. Will continue to monitor hemoglobin and hematocrit and GI is on board. Continue with PPI. 4. Acute blood loss anemia secondary to lower gastrointestinal bleed, diverticular in nature. 5. History of chronic obstructive pulmonary disease, on home oxygen, not in exacerbation. 6. Near syncope, likely due to vasovagal and hypoxia. Patient is back to baseline. 7. Sigmoid diverticulosis. 8. Gastroesophageal reflux disease. 9. Hyperlipidemia. 10. Hypertension. 11. Osteoarthritis of multiple joints. 12. Benign prostatic hypertrophy. 13. Restless leg syndrome. 14. Deep venous thrombosis prophylaxis with SCDs. 15. Code status is FULL. DISCUSSION AND PLAN: The patient will be continued on Protonix.Continue to monitor H&H. GI is following this patient and no plans for colonoscopy at this time. No active bleeding now. Will continue the current management. Further recommendations based on clinical course. MTDD
[2017-04-28 07:27] VITALS: BP 118/70; PULSE 77; RESP 20; TEMP 97.8
[2017-04-28 08:21] LABS: Anisocytosis Slight; Basophils % (A) 1 %; CH 21.6; CHCM 28.3; Eosinophils # (A) 0.2 k/uL (0-0.7); Eosinophils % (A) 3 %; HCT 29.9 % (39.0-53.0); HDW 3.99; HGB 8.7 gm/dL (13.0-17.5); Hypochromasia Marked; Luc % (Auto) 4; Lymphocytes # (A) 1.4 k/uL (1.0-4.8); Lymphocytes % (A) 18 %; MCH 22.4 pg (25.0-35.0); MCHC 29.2 g/dL (31.0-37.0); MCV 76.7 fL (80.0-100.0); Mean Platelet Volume 7.3; Microcytosis Slight; Monocytes # (A) 0.5 k/uL (0-1.0); Monocytes % (A) 6 %; Neutrophils # (A) 5.1 k/uL (1.3-7.7); Neutrophils % (A) 68 %; Poikilocytosis Slight; RDW 18.8 % (11.5-15.5); WBC 7.5 k/uL (3.8-10.6); WBC (Perox) 7.77
[2017-04-28 08:32] LABS: Anion Gap 8 mmol/L; Blood Urea Nitrogen 14 mg/dL (9-20); Calcium 9.4 mg/dL (8.4-10.2); Carbon Dioxide 29 mmol/L (22-30); Chloride 104 mmol/L (98-107); Glucose 91 mg/dL (74-99); Non-African American GFR(MDRD) >60 (>60 ml/min/1.73 sqM); Potassium 4.7 mmol/L (3.5-5.1); Sodium 141 mmol/L (137-145)
[2017-04-28] MEDS: ATORVASTATIN 80 MG TAB PO SCH (08:34)
[2017-04-28] MEDS: PANTOPRAZOLE 40 MG TABLET PO SCH (08:34)
[2017-04-28] MEDS: FLUoxetine HCL 20 MG CAP PO SCH (08:34)
[2017-04-28] MEDS: FERROUS SULFATE 325 MG TAB PO SCH (08:34)
[2017-04-28] MEDS: MULTIVITAMINS, THERA 1 EACH TAB PO SCH (08:35)
[2017-04-28] MEDS: SENNOSIDES-DOCUSATE SODIUM 1 EACH TAB PO SCH (08:36)
[2017-04-28] MEDS: SYMBICORT 160-4.5 MCG INHALER INHALATION SCH (08:39)
[2017-04-28] MEDS: TIOTROPIUM 18 MCG/PUFF INHALER INHALATION SCH (08:40)
--- NOTE | 2017-04-28 11:13 | P.PN ---
Subjective Principal diagnosis: Rectal bleeding no recurrence of rectal bleeding. Feels well. Tolerating regular diet. hemoglobin 8.7. Denies abdominal pain. Objective - Vital Signs Vital signs: Vital Signs Temp 97.8 F 04/28/17 07:00 Pulse 77 04/28/17 07:00 Resp 20 04/28/17 07:00 BP 118/70 04/28/17 07:00 Pulse Ox 95 04/28/17 08:48 Intake & Output 04/27/17 04/28/17 04/28/17 18:59 06:59 18:59 Intake Total 300 240 Output Total 1300 Balance -1000 240 Intake: Oral 300 240 Output: Urine 1300 Other: Voiding Method Urinal # Voids 1 1 # Bowel Movements 1 - Exam General appearance: The patient is alert, oriented, in no acute distress. HET: Head is normocephalic and atraumatic. Pupils are equal and reactive. Oropharynx is clear without lesions. Neck: Supple without lymphadenopathy. Trachea midline. Heart: S1 S2. Regular rate and rhythm. Lungs: No crackles or wheezes are heard. Abdomen: Soft, nontender, nondistended with bowel sounds. No peritoneal signs. No palpable organomegaly or masses. Extremities: Normal skin color and turgor. No cyanosis, rash, ulceration, clubbing, or edema. Radial and pedal pulses are 2/4 bilaterally. Neurological: No focal deficits. Strength and sensation are grossly intact. - Labs CBC & Chem 7: 04/28/17 08:02 04/28/17 08:02 Labs: Abnormal Lab Results - Last 24 Hours (Table) 04/28/17 Range/Units 08:02 RBC 3.90 L (4.30-5.90) m/uL Hgb 8.7 L (13.0-17.5) gm/dL Hct 29.9 L (39.0-53.0) % MCV 76.7 L (80.0-100.0) fL MCH 22.4 L (25.0-35.0) pg MCHC 29.2 L (31.0-37.0) g/dL RDW 18.8 H (11.5-15.5) % Assessment and Plan (1) Rectal bleeding Narrative/Plan: 76-year-old gentleman presents with rectal discomfort burgundy colored bowel movement 1 with recent hospitalization for symptomatic anemia status post EGD colonoscopy small bowel capsule endoscopy with findings of sigmoid diverticulosis, hemorrhoids, short segment of Garcia's esophagus. Etiology of bleeding could be diverticular in nature possible hemorrhoidal or a combination of both. Hemoglobin relatively stable on admission compared from previous hospitalization. Status: Acute (2) Acute blood loss anemia Narrative/Plan: Iron deficiency anemia Status: Acute Plan: 1. Agreeable for discharge. 2. GI prophylaxis. Iron supplementation twice daily prescription given. 3. Light diet low residue as tolerated. 4. Repeat endoscopy not planned at this time. Assessment and plan of care discussed with Dr. Granger
[2017-04-28] MEDS: PRAMIPEXOLE 0.5 MG TAB PO PRN (12:53)
--- NOTE | 2017-04-29 12:56 | PN ---
DATE OF SERVICE: 04/26/17 INTERVAL HISTORY: Mr. Coleman is a 76 year old male with a known history of hypertension, hyperlipidemia, COPD, on home oxygen with history of recent GI bleed, admitted ( ) status post EGD, colonoscopy as well as capsule endoscopy , was found to have also suspected to have possible small bowel ( ). Came back to the hospital with rectal bleeding one day prior to admission. The patient had hemoglobin drop from 8.8 to 8.3. No evidence of rectal bleeding again today. The patient did not have any bowel movement. No chest pain. No short of breath. No nausea, vomiting or abdominal pain. Gastroenterology has seen the patient and recommended no intervention at this time. Currently the patient denied any complaints of abdominal pain which is improved as well. REVIEW OF SYSTEMS: Constitutional: No fever. No chills. Respiratory: No cough or sputum production. Cardiovascular: No chest pain or shortness of breath. Abdominal: Soft. The patient does have nausea. No abdominal pain. No vomiting. no diarrhea. The patient does have constipation. Genitourinary: No dysuria or hematuria. Endocrine: Negative. Psychiatric: Negative. Skin : Negative. All other 14 point review of systems negative except as above. Current medications reviewed. PHYSICAL EXAMINATION: 76 year old male lying in bed comfortably, awake alert and oriented times three, appears to be in no apparent distress. VITALS: Blood pressure 130/81. Pulse 89, respiratory rate 16, temperature afebrile. Pulse ox 95% on room air. HEENT: Atraumatic, normocephalic. NECK: Supple. No JVD. CVS: S1, S2 heard. No murmurs. No gallops. No rubs. LUNGS: Bilateral air entry is present. No wheezing or crackles. Nonlabored breathing. ABDOMEN: Soft, nontender. Bowel sounds present. MAILING CLERK: Awake, alert and oriented times three. No focal deficits. EXTREMITIES: No edema. Pulses palpable bilaterally. No clubbing or cyanosis. PSYCHIATRIC: Cooperative. Laboratory data: WBC 15.5, hemoglobin 8.3, platelets 439. Lactic acid improved to 1.3. IMPRESSION: 1. Lower gastrointestinal bleed, possible diverticular in nature. No active bleeding at this time. We will continue to monitor hemoglobin and hematocrit. The patient had a recent workup including EGD, colonoscopy and ( ) showed gastritis and Garcia's esophagus and chronic gastritis with hiatal hernia and also sigmoid diverticulosis. Gastroenterology is planning for conservative intervention at this time. Continue Protonix as the patient was started. Diet advanced as tolerated. We will continue to monitor hemoglobin. 2. Acute blood loss anemia, most likely secondary to gastrointestinal bleed. 3. History of chronic obstructive pulmonary disease. 4. History of chronic hypoxic respiratory failure on home oxygen scheduled at this time 2 L. 5. Sigmoid diverticulosis. 6. Gastroesophageal reflux disease. 7. Garcia's esophagus. 8. Hiatal hernia. 9. Hyperlipidemia. 10. Osteoarthritis of multiple joints. 11. Benign prostatic hypertrophy. 12. ( ). 13. CODE STATUS: FULL CODE. 14. DVT prophylaxis with SCDs. DISCUSSION AND PLAN: The patient will be continued on Protonix and continue to monitor H&H. The patient was started on clear liquids. Advanced as tolerated. GI planning for EGD and colonoscopy at this time. We will continue to follow closely. Further recommendations based on clinical course. MTDD
== END 2017-04-28 14:47 | disposition home or self-care (01) | DRG 378 ==
LOC: EC 10:31 → OBSVTOIN 12:45 → 4MS4W 12:45
PROVIDERS: ADMIT Hospitalist; ATTEND Hospitalist
DX: K57.31 Diverticulosis of large intestine without perforation or abscess with bleeding (principal); D62 Acute posthemorrhagic anemia; J96.11 Chronic respiratory failure with hypoxia; N13.8 Other obstructive and reflux uropathy; Z99.81 Dependence on supplemental oxygen; G62.9 Polyneuropathy, unspecified; J44.9 Chronic obstructive pulmonary disease, unspecified; K64.8 Other hemorrhoids; D50.8 Other iron deficiency anemias; I10 Essential (primary) hypertension; F32.9 Major depressive disorder, single episode, unspecified; E78.5 Hyperlipidemia, unspecified; F41.9 Anxiety disorder, unspecified; G25.81 Restless legs syndrome; H40.9 Unspecified glaucoma; K21.9 Gastro-esophageal reflux disease without esophagitis; K22.70 Barrett's esophagus without dysplasia; K44.9 Diaphragmatic hernia without obstruction or gangrene; M15.9 Polyosteoarthritis, unspecified; N40.1 Benign prostatic hyperplasia with lower urinary tract symptoms; E07.9 Disorder of thyroid, unspecified; R55 Syncope and collapse; Z79.82 Long term (current) use of aspirin; Z79.899 Other long term (current) drug therapy; Z87.891 Personal history of nicotine dependence
CPT/HCPCS: 36415; 80048; 80053; 82550; 82553; 82607; 82728; 83540; 83550; 83605; 83690; 83735; 84484; 85025; 85610; 85730; 86850; 86900; 86901; 94640; 94760; 96361; 96374; 96375; 99285

== ENCOUNTER 2018-05-07 17:42 | Inpatient (IN) | payer OTHER, MEDICARE ==
[2018-05-07 17:56] LABS: Glucose,Whole Blood 169 mg/dL (75-99)
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
[2018-05-07 18:13] LABS: Basophils % (A) 0 %; Eosinophils # (A) 0.1 k/uL (0-0.7); Eosinophils % (A) 0 %; HCT 39.6 % (39.0-53.0); HGB 13.6 gm/dL (13.0-17.5); Lymphocytes # (A) 0.6 k/uL (1.0-4.8); Lymphocytes % (A) 4 %; MCH 32.2 pg (25.0-35.0); MCHC 34.4 g/dL (31.0-37.0); MCV 93.7 fL (80.0-100.0); Mean Platelet Volume 6.6; Monocytes # (A) 0.7 k/uL (0-1.0); Monocytes % (A) 5 %; Neutrophils # (A) 12.6 k/uL (1.3-7.7); Neutrophils % (A) 90 %; Platelet Count 321 k/uL (150-450); RBC 4.23 m/uL (4.30-5.90); WBC 14.1 k/uL (3.8-10.6)
[2018-05-07 18:23] LABS: ALT 36 U/L (21-72); AST 48 U/L (17-59); Albumin 4.2 g/dL (3.5-5.0); Alcohol <10 mg/dL; Alkaline Phosphatase 100 U/L (38-126); Anion Gap 14 mmol/L; Blood Urea Nitrogen 17 mg/dL (9-20); Calcium 9.1 mg/dL (8.4-10.2); Carbon Dioxide 26 mmol/L (22-30); Chloride 94 mmol/L (98-107); Glucose 166 mg/dL (74-99); Sodium 134 mmol/L (137-145); Total Bilirubin 2.1 mg/dL (0.2-1.3); Total Protein 7.2 g/dL (6.3-8.2)
[2018-05-07 18:29] LABS: Potassium 4.6 mmol/L (3.5-5.1)
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
[2018-05-07] MEDS ORDERED: SODIUM CHLORIDE 0.9% 500 ML IV ONE (19:36)
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
[2018-05-07 19:42] LABS: Appearance,Urine Clear (Clear); Bilirubin,Urine Negative (Negative); Blood,Urine Negative (Negative); Color,Urine Yellow; Glucose,Urine (UA) Negative (Negative); Ketones,Urine Trace (Negative); Leukocyte Esterase,Urine Negative (Negative); Nitrite,Urine Negative (Negative); PH, Urine 8.5 (5.0-8.0); Protein,Urine Trace (Negative); Urobilinogen,Urine <2.0 mg/dL (<2.0)
[2018-05-07 19:48] LABS: Specific Gravity,Urine >1.050 (1.001-1.035)
[2018-05-07] MEDS ORDERED: cefTRIAXone IN SWFI 1,000 MG/10 ML SYRINGE IVP STA (20:10)
[2018-05-07] MEDS ORDERED: IPRATROPIUM-ALBUTEROL 3 ML NEB INHALATION STA (20:10)
[2018-05-07] MEDS ORDERED: AZITHROMYCIN 500 MG in DEXTROSE 5% IN WATER 250 ML IVPB STA ×2 (20:11)
[2018-05-07] MEDS ORDERED: IPRATROPIUM-ALBUTEROL 3 ML NEB INHALATION PRN (21:03)
[2018-05-07] MEDS ORDERED: methylPREDNISolone SOD SUCCI 125 MG/2 ML VIAL IV STA (21:03)
[2018-05-07 22:32] VITALS: BMI 25.8
[2018-05-07] MEDS ORDERED: predniSONE 20 MG TAB PO SCH (23:00)
[2018-05-07] MEDS: QUEtiapine 25 MG TAB PO SCH (23:12)
[2018-05-07] MEDS: ALPRAZolam 0.25 MG TAB PO PRN (23:12)
[2018-05-07] MEDS: PRAMIPEXOLE 0.5 MG TAB PO SCH (23:12)
[2018-05-07] MEDS: amLODIPine 5 MG TAB PO SCH (23:13)
[2018-05-08] MEDS: LEVOTHYROXINE 75 MCG TAB PO SCH (05:04)
[2018-05-08] MEDS: IPRATROPIUM-ALBUTEROL 3 ML NEB INHALATION SCH ×4 (07:05→19:17)
[2018-05-08] MEDS: PRAMIPEXOLE 0.5 MG TAB PO SCH ×3 (07:32→21:59)
[2018-05-08] MEDS: cefTRIAXone IN SWFI 1,000 MG/10 ML SYRINGE IVP SCH (07:32)
[2018-05-08] MEDS: ATORVASTATIN 80 MG TAB PO SCH (07:32)
[2018-05-08] MEDS ORDERED: AZITHROMYCIN 500 MG in DEXTROSE 5% IN WATER 250 ML IVPB SCH ×2 (09:00)
[2018-05-08] MEDS ORDERED: predniSONE 20 MG TAB PO SCH (09:00)
[2018-05-08] MEDS ORDERED: amLODIPine 5 MG TAB PO SCH (09:00)
[2018-05-08] MEDS: TAMSULOSIN 0.4 MG CAP.ER.24H PO SCH (14:58)
[2018-05-08] MEDS: LISINOPRIL 20 MG TAB PO SCH (14:58)
[2018-05-08] MEDS ORDERED: LACTULOSE 20 GM/30 ML CUP PO PRN (16:12)
[2018-05-08] MEDS ORDERED: ACETAMINOPHEN TAB 325 MG TAB PO PRN (16:12)
[2018-05-08] MEDS ORDERED: ONDANSETRON 4 MG/2 ML VIAL IVP PRN (16:12)
[2018-05-08] MEDS ORDERED: CALCIUM CARBONATE 500 MG CHEWABLE PO PRN (16:12)
[2018-05-08] MEDS ORDERED: RX INFO: IV CONTRAST WAS GIVEN 1 EACH MISC MISCELLANE PRN (16:33)
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
[2018-05-08] MEDS: methylPREDNISolone SOD SUCCI 40 MG/ML 1 ML VIAL IV SCH ×2 (18:02→23:46)
[2018-05-08] MEDS: PANTOPRAZOLE 40 MG TABLET PO SCH (18:30)
[2018-05-08] MEDS: BUDESONIDE 1 MG/2 ML NEBU INHALATION SCH (19:17)
[2018-05-08] MEDS ORDERED: QUEtiapine 25 MG TAB PO SCH (21:00)
[2018-05-08] MEDS: guaiFENesin 600 MG TABLET.ER PO SCH (21:26)
[2018-05-08] MEDS: QUEtiapine 25 MG TAB PO SCH (21:26)
[2018-05-08] MEDS: FLUoxetine HCL 20 MG CAP PO SCH (21:28)
[2018-05-08] MEDS: amLODIPine 5 MG TAB PO SCH (21:29)
[2018-05-08] MEDS: ALPRAZolam 0.25 MG TAB PO PRN (21:59)
[2018-05-09] MEDS: IPRATROPIUM-ALBUTEROL 3 ML NEB INHALATION SCH ×6 (01:47→18:30)
[2018-05-09] MEDS: BUDESONIDE 1 MG/2 ML NEBU INHALATION SCH ×2 (07:07→18:30)
[2018-05-09] MEDS ORDERED: SYMBICORT 160-4.5 MCG INHALER INHALATION SCH (08:00)
--- NOTE | 2018-05-09 08:34 | CT ---
EXAMINATION TYPE: CT chest w con DATE OF EXAM: 05/09/2018 COMPARISON: HISTORY: SOB, possible mass CT DLP: 448.6 mGycm Automated exposure control for dose reduction was used. CONTRAST: CT scan of the chest is performed with IV Contrast, patient injected with 100 mL of Isovue 300. FINDINGS: LUNGS: Severe upper lobe emphysematous changes. Chronic parenchymal opacities at the lung bases left greater than right. Left upper lobe nodularity measuring 3.5 mm and 4.4 mm respectively. MEDIASTINUM: Enlarging masses AP window measuring 5.0 cm in greatest dimension versus 2.3 cm previous ly, 3.6 cm in greatest dimension versus 2.1 cm previously. Posterior left-sided tracheobronchial lymp h node measuring 2.2 cm. Additional lymph node mass adjacent to the left pulmonary vein measuring 3.7 cm. UPPER ABDOMEN: No significant abnormality appreciated. OTHER: No additional significant abnormality is seen. IMPRESSION: 1. Enlarging mediastinal adenopathy. 2. Severe emphysematous change. 3. Stable scattered nodules.
[2018-05-09] MEDS: guaiFENesin 600 MG TABLET.ER PO SCH ×2 (09:48→21:41)
[2018-05-09] MEDS: LEVOTHYROXINE 75 MCG TAB PO SCH (09:48)
[2018-05-09] MEDS: methylPREDNISolone SOD SUCCI 40 MG/ML 1 ML VIAL IV SCH ×3 (09:48→23:00)
[2018-05-09] MEDS: ATORVASTATIN 80 MG TAB PO SCH (09:48)
[2018-05-09] MEDS: AZITHROMYCIN 500 MG TAB PO SCH (09:48)
[2018-05-09] MEDS: LISINOPRIL 20 MG TAB PO SCH (09:49)
[2018-05-09] MEDS: PRAMIPEXOLE 0.5 MG TAB PO SCH ×3 (09:49→21:41)
[2018-05-09] MEDS: HYDROCHLOROTHIAZIDE 12.5 MG CAP PO SCH (09:49)
[2018-05-09] MEDS: TAMSULOSIN 0.4 MG CAP.ER.24H PO SCH (09:49)
[2018-05-09] MEDS: cefTRIAXone IN SWFI 1,000 MG/10 ML SYRINGE IVP SCH (09:55)
--- NOTE | 2018-05-09 10:45 | ECHOF ---
Referral Reason:syncope, hx aortic insuff MEASUREMENTS -------- HEIGHT: 177.8 cm WEIGHT: 85.7 kg BP: 130/71 RVIDd: 2.9 cm (< 3.3) IVSd: 1.0 cm (0.6 - 1.1) LVIDd: 5.1 cm (3.9 - 5.3) LVPWd: 1.0 cm (0.6 - 1.1) IVSs: 1.6 cm LVIDs: 3.4 cm LVPWs: 1.5 cm LA Diam: 3.3 cm (2.7 - 3.8) LAESV Index (A-L): 19.39 ml/m Ao Diam: 3.6 cm (2.0 - 3.7) AV Cusp: 2.3 cm (1.5 - 2.6) MV EXCURSION: 14.230 mm (> 18.000) MV EF SLOPE: 63 mm/s (70 - 150) EPSS: 0.6 cm MV E Martin: 0.97 m/s MV DecT: 241 ms MV A Martin: 1.03 m/s MV E/A Ratio: 0.94 RAP: 5.00 mmHg RVSP: 35.45 mmHg FINDINGS -------- Sinus rhythm. This was a technically adequate study. The left ventricular size is normal. Left ventricular wall thickness is normal. Overall left vent ricular systolic function is normal with, an EF between 55 - 60 %. The right ventricle is normal in size. Normal LA size by volume 22+/-6 ml/m2. The right atrium is normal in size. There is mild aortic valve sclerosis. Mild mitral annular calcification present. Mild tricuspid regurgitation present. There is mild pulmonary hypertension. The right ventricular systolic pressure, as measured by Doppler, is 35.45mmHg. The pulmonic valve was not well visualized. The aortic root size is normal. Normal inferior vena cava with normal inspiratory collapse consistent with estimated right atrial pre ssure of 5 mmHg. There is a trivial pericardial effusion present. CONCLUSIONS -------- 1. Sinus rhythm. 2. This was a technically adequate study. 3. The left ventricular size is normal. 4. Left ventricular wall thickness is normal. 5. Overall left ventricular systolic function is normal with, an EF between 55 - 60 %. 6. The right ventricle is normal in size. 7. Normal LA size by volume 22+/-6 ml/m2. 8. The right atrium is normal in size. 9. There is mild aortic valve sclerosis. 10. Mild mitral annular calcification present. 11. Mild tricuspid regurgitation present. 12. There is mild pulmonary hypertension. 13. The right ventricular systolic pressure, as measured by Doppler, is 35.45mmHg. 14. The pulmonic valve was not well visualized. 15. The aortic root size is normal. 16. Normal inferior vena cava with normal inspiratory collapse consistent with estimated right atrial pressure of 5 mmHg. 17. There is a trivial pericardial effusion present. EXTERMINATOR HELPER TERMITE: Gaby Diop RDCS
[2018-05-09 11:33] LABS: INR 1.1 (<1.2); Prothrombin Time 10.7 sec (9.0-12.0)
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
[2018-05-09] MEDS: MULTIVITAMINS, THERA 1 EACH TAB PO SCH (14:23)
[2018-05-09] MEDS ORDERED: HYDROmorphone 1 MG/ML 1 ML SYRINGE IVP ONE (15:15)
--- NOTE | 2018-05-09 15:29 | CT ---
EXAMINATION TYPE: CT biopsy lung LT, core biopsy mediastinal mass. DATE OF EXAM: 05/09/2018 HISTORY: Mediastinal adenopathy COMPARISON: CT 05/09/2018 Maximal barrier technique was utilized. The skin overlying a suitable path to the lesion was localiz ed using CT and the overlying skin was prepped and draped. Lidocaine used for local anesthesia. A s kin neo made with a scalpel. Using CT guidance, access was gained to the lesion with a 17-gauge lana de needle, coaxial placement of 18-gauge needle performed. Core specimen submitted to cytology. 2 pa sses were performed in all. Following the procedure no immediate complications. The patient is dis charged in stable condition. Hemostasis achieved. IMPRESSION: SUCCESSFUL CT GUIDED CORE BIOPSY mediastinal mass. PATHOLOGY PENDING. THIS PROCEDURE WAS PERFORMED BY THE UNDERSIGNED.
--- NOTE | 2018-05-09 15:43 | XR ---
EXAMINATION TYPE: XR chest 1V DATE OF EXAM: 05/09/2018 COMPARISON: Prior chest 05/07/2018 HISTORY: Status post mediastinal biopsy TECHNIQUE: Single frontal view of the chest is obtained. FINDINGS: No interval change. Cardiomediastinal silhouette shows a stable appearance. Abnormal incre ased density persists at the left lung base. Pneumothorax is not evident. IMPRESSION: No evident complication status post biopsy.
[2018-05-09] MEDS: PANTOPRAZOLE 40 MG TABLET PO SCH (17:44)
[2018-05-09] MEDS: QUEtiapine 25 MG TAB PO SCH (21:41)
[2018-05-09] MEDS: ALPRAZolam 0.25 MG TAB PO PRN (21:41)
[2018-05-09] MEDS: FLUoxetine HCL 20 MG CAP PO SCH (21:41)
[2018-05-09] MEDS: amLODIPine 5 MG TAB PO SCH (21:41)
[2018-05-09] MEDS ORDERED: IPRATROPIUM-ALBUTEROL 3 ML NEB ONE (23:23)
[2018-05-10] MEDS: IPRATROPIUM-ALBUTEROL 3 ML NEB INHALATION SCH ×6 (05:22→22:58)
[2018-05-10] MEDS: LEVOTHYROXINE 75 MCG TAB PO SCH (06:54)
[2018-05-10] MEDS: BUDESONIDE 1 MG/2 ML NEBU INHALATION SCH ×2 (07:35→19:50)
[2018-05-10] MEDS: guaiFENesin 600 MG TABLET.ER PO SCH ×2 (08:45→21:49)
[2018-05-10] MEDS: cefTRIAXone IN SWFI 1,000 MG/10 ML SYRINGE IVP SCH (08:45)
[2018-05-10] MEDS: methylPREDNISolone SOD SUCCI 40 MG/ML 1 ML VIAL IV SCH ×2 (08:45→17:03)
[2018-05-10] MEDS: AZITHROMYCIN 500 MG TAB PO SCH (08:45)
[2018-05-10] MEDS: PRAMIPEXOLE 0.5 MG TAB PO SCH ×3 (08:45→21:49)
[2018-05-10] MEDS: TAMSULOSIN 0.4 MG CAP.ER.24H PO SCH (08:45)
[2018-05-10] MEDS: LISINOPRIL 20 MG TAB PO SCH (08:45)
[2018-05-10] MEDS: ATORVASTATIN 80 MG TAB PO SCH (08:45)
[2018-05-10] MEDS: HYDROCHLOROTHIAZIDE 12.5 MG CAP PO SCH (08:45)
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
[2018-05-10] MEDS: MULTIVITAMINS, THERA 1 EACH TAB PO SCH (12:38)
--- NOTE | 2018-05-10 13:19 | XR ---
EXAMINATION TYPE: XR chest 1V portable DATE OF EXAM: 05/10/2018 CLINICAL HISTORY: Increased shortness of breath progress study. TECHNIQUE: Single AP portable frontal view of the chest is obtained. COMPARISON: Chest x-ray from one day earlier and older studies. CT chest from yesterday. FINDINGS: There is background chronic emphysematous change. There is persistent elevated left hemidi aphragm with associated left basilar consolidation and/or atelectasis. There is patchy right basilar atelectasis. Left-sided mediastinal masses inferior to aortic knob are redemonstrated. Cardiac silhou ette size is stable and within normal limits seen better on CT. Ectatic and atherosclerotic thoracic aorta is redemonstrated. S-shaped scoliosis with multilevel spurring in the spine is redemonstrated. IMPRESSION: Overall stable findings, chronic emphysematous change with persistent elevated left kimberlee diaphragm and associated left basilar atelectasis and/or consolidation with patchy right basilar line ar atelectasis. Known suspicious mediastinal masses which were recently biopsied. No significant rouse ge from most recent prior studies.
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
[2018-05-10 14:19] LABS: Basophils % (A) 0 %; Eosinophils % (A) 0 %; HCT 39.8 % (39.0-53.0); Lymphocytes # (A) 0.3 k/uL (1.0-4.8); Lymphocytes % (A) 2 %; MCH 30.7 pg (25.0-35.0); MCHC 32.6 g/dL (31.0-37.0); MCV 94.2 fL (80.0-100.0); Mean Platelet Volume 6.5; Monocytes # (A) 0.6 k/uL (0-1.0); Monocytes % (A) 4 %; Neutrophils # (A) 12.6 k/uL (1.3-7.7); Neutrophils % (A) 93 %; Platelet Count 374 k/uL (150-450); RBC 4.22 m/uL (4.30-5.90); RDW 13.7 % (11.5-15.5); WBC 13.5 k/uL (3.8-10.6)
[2018-05-10 14:50] LABS: Anion Gap 14 mmol/L; Blood Urea Nitrogen 31 mg/dL (9-20); Calcium 9.4 mg/dL (8.4-10.2); Carbon Dioxide 26 mmol/L (22-30); Chloride 94 mmol/L (98-107); Glucose 174 mg/dL (74-99); Potassium 4.7 mmol/L (3.5-5.1); Sodium 134 mmol/L (137-145)
[2018-05-10] MEDS: PANTOPRAZOLE 40 MG TABLET PO SCH (18:47)
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
[2018-05-10] MEDS: FORMOTEROL FUMARATE 20 MCG/2 ML NEBU INHALATION SCH (19:50)
[2018-05-10] MEDS: amLODIPine 5 MG TAB PO SCH (21:49)
[2018-05-10] MEDS: FLUoxetine HCL 20 MG CAP PO SCH (21:49)
[2018-05-10] MEDS: QUEtiapine 25 MG TAB PO SCH (21:49)
[2018-05-10] MEDS: ALPRAZolam 0.25 MG TAB PO PRN (21:49)
[2018-05-11] MEDS: methylPREDNISolone SOD SUCCI 40 MG/ML 1 ML VIAL IV SCH ×4 (00:48→23:25)
[2018-05-11 01:03] LABS: Glucose,Whole Blood 204 mg/dL (75-99)
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
[2018-05-11] MEDS: LEVOTHYROXINE 75 MCG TAB PO SCH (06:26)
[2018-05-11] MEDS: IPRATROPIUM-ALBUTEROL 3 ML NEB INHALATION SCH ×5 (06:35→19:56)
[2018-05-11] MEDS: BUDESONIDE 1 MG/2 ML NEBU INHALATION SCH ×2 (06:36→19:56)
[2018-05-11] MEDS: FORMOTEROL FUMARATE 20 MCG/2 ML NEBU INHALATION SCH ×2 (06:36→19:56)
[2018-05-11] MEDS: TAMSULOSIN 0.4 MG CAP.ER.24H PO SCH (08:20)
[2018-05-11] MEDS: PRAMIPEXOLE 0.5 MG TAB PO SCH ×3 (08:20→21:12)
[2018-05-11] MEDS: cefTRIAXone IN SWFI 1,000 MG/10 ML SYRINGE IVP SCH (08:20)
[2018-05-11] MEDS: HYDROCHLOROTHIAZIDE 12.5 MG CAP PO SCH (08:20)
[2018-05-11] MEDS: ATORVASTATIN 80 MG TAB PO SCH (08:20)
[2018-05-11] MEDS: LISINOPRIL 20 MG TAB PO SCH (08:20)
[2018-05-11] MEDS: AZITHROMYCIN 500 MG TAB PO SCH (08:21)
[2018-05-11] MEDS: guaiFENesin 600 MG TABLET.ER PO SCH ×2 (08:21→21:11)
[2018-05-11] MEDS: MULTIVITAMINS, THERA 1 EACH TAB PO SCH (12:24)
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
[2018-05-11] MEDS: PANTOPRAZOLE 40 MG TABLET PO SCH (16:37)
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
[2018-05-11] MEDS: amLODIPine 5 MG TAB PO SCH (21:11)
[2018-05-11] MEDS: FLUoxetine HCL 20 MG CAP PO SCH (21:11)
[2018-05-11] MEDS: QUEtiapine 25 MG TAB PO SCH (21:12)
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
[2018-05-12] MEDS: IPRATROPIUM-ALBUTEROL 3 ML NEB INHALATION SCH ×5 (00:20→15:40)
[2018-05-12] MEDS: LEVOTHYROXINE 75 MCG TAB PO SCH (06:15)
[2018-05-12] MEDS: BUDESONIDE 1 MG/2 ML NEBU INHALATION SCH (07:16)
[2018-05-12] MEDS: FORMOTEROL FUMARATE 20 MCG/2 ML NEBU INHALATION SCH (07:16)
[2018-05-12] MEDS: cefTRIAXone IN SWFI 1,000 MG/10 ML SYRINGE IVP SCH (07:36)
[2018-05-12] MEDS: TAMSULOSIN 0.4 MG CAP.ER.24H PO SCH (07:36)
[2018-05-12] MEDS: PRAMIPEXOLE 0.5 MG TAB PO SCH ×2 (07:36→16:24)
[2018-05-12] MEDS: AZITHROMYCIN 500 MG TAB PO SCH (07:36)
[2018-05-12] MEDS: methylPREDNISolone SOD SUCCI 40 MG/ML 1 ML VIAL IV SCH ×2 (07:36→16:24)
[2018-05-12] MEDS: LISINOPRIL 20 MG TAB PO SCH (07:36)
[2018-05-12] MEDS: guaiFENesin 600 MG TABLET.ER PO SCH (07:37)
[2018-05-12] MEDS: ATORVASTATIN 80 MG TAB PO SCH (07:37)
[2018-05-12] MEDS: HYDROCHLOROTHIAZIDE 12.5 MG CAP PO SCH (07:37)
[2018-05-12 07:56] VITALS: RESP 18; TEMP 97.8
[2018-05-12] MEDS: MULTIVITAMINS, THERA 1 EACH TAB PO SCH (12:56)
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
[2018-05-12 16:02] VITALS: BP 153/83; PULSE 93
[2018-05-12] MEDS: PANTOPRAZOLE 40 MG TABLET PO SCH (16:24)
[2018-05-12] MEDS: ALPRAZolam 0.25 MG TAB PO PRN (17:00)
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
== END 2018-05-12 19:40 | disposition home or self-care (01) | DRG 180 ==
LOC: EC 17:42 → 4MS4W 21:04
PROVIDERS: ADMIT Hospitalist; ATTEND Hospitalist
PROC: 0BBG3ZX Excision of Left Upper Lung Lobe, Percutaneous Approach, Diagnostic (ICD-10-PCS; principal; 2018-05-09)
DX: C34.02 Malignant neoplasm of left main bronchus (principal); J15.6 Pneumonia due to other Gram-negative bacteria; J44.0 Chronic obstructive pulmonary disease with (acute) lower respiratory infection; J44.1 Chronic obstructive pulmonary disease with (acute) exacerbation; J96.11 Chronic respiratory failure with hypoxia; J98.11 Atelectasis; Z87.891 Personal history of nicotine dependence; E78.5 Hyperlipidemia, unspecified; G25.81 Restless legs syndrome; G62.9 Polyneuropathy, unspecified; H40.9 Unspecified glaucoma; I10 Essential (primary) hypertension; I35.1 Nonrheumatic aortic (valve) insufficiency; I67.1 Cerebral aneurysm, nonruptured; I71.4 Abdominal aortic aneurysm, without rupture; K21.9 Gastro-esophageal reflux disease without esophagitis; K22.70 Barrett's esophagus without dysplasia; K57.30 Diverticulosis of large intestine without perforation or abscess without bleeding; K64.8 Other hemorrhoids; M19.91 Primary osteoarthritis, unspecified site; M41.82 Other forms of scoliosis, cervical region; M50.31 Other cervical disc degeneration, high cervical region; N40.0 Benign prostatic hyperplasia without lower urinary tract symptoms; V47.5XXA Car driver injured in collision with fixed or stationary object in traffic accident, initial encounter; W22.09XA Striking against other stationary object, initial encounter; Y92.410 Unspecified street and highway as the place of occurrence of the external cause; Z79.899 Other long term (current) drug therapy; Z99.81 Dependence on supplemental oxygen; Z79.890 Hormone replacement therapy; Z79.52 Long term (current) use of systemic steroids; Z82.61 Family history of arthritis; R55 Syncope and collapse
CPT/HCPCS: 36415; 70450; 70496; 70498; 70553; 71045; 71046; 71260; 72125; 72170; 77012; 80048; 80053; 80320; 81003; 83605; 84484; 85025; 85610; 87040; 88305; 88341; 88342; 93005; 93306; 94640; 94760; 95819; 96365; 96375; 99285

== ENCOUNTER → 2018-05-20 | Outpatient (CLI) | payer MEDICARE ==
--- NOTE | 2018-05-23 17:36 | PE ---
EXAMINATION TYPE: PET CT fusion skull to thigh DATE OF EXAM: 05/20/2018 COMPARISON: CT chest dated 05/09/2018 HISTORY: Small cell lung cancer. Initial treatment strategy (PI). No prior chemotherapy or radiation. TECHNIQUE: Following the intravenous administration of 11.72 mCi of F-18 FDG, whole body images are performed from the skull base to the midthigh. Images are reviewed on the computer in the coronal, a xial, and sagittal planes. Reconstructed rotating images are created on independent workstation and reviewed on the computer. A localization and attenuation correction CT is performed in conjunction with the PET scan. SCAN: Initial FINDINGS: Mediastinal background: 2.17. Abdominal background: 3.31. SKULL BASE AND NECK: No suspicious hypermetabolic uptake. CHEST, MEDIASTINUM, AND HILAR REGION: The previously seen left upper lobe medial pulmonary masses abu tting and involving the mediastinum now measure 4.7 x 4.6 cm and 3.3 x 2.9 cm. The largest previously measured approximately 5.0 cm in greatest dimension and therefore there is no interval change in com parison to prior of 05/09/2018 given differences in measurement technique. These masses also abuts th e pericardial surface and is diffusely hypermetabolic with a maximum SUV of 17.3 within the smaller m ass and maximum SUV of 15.57 within the larger mass. Posterior to this within the left perihilar jamie on there is a hypermetabolic lymph node with a maximum SUV of 6.88. This measures 1.3 cm in short axi s on series 3 image 90. No hypermetabolic right-sided mediastinal or supraclavicular adenopathy is se en. There is some improvement of the left basilar consolidation with a maximum SUV of 2.17, the seen is m ediastinal background. Therefore this is favored to represent resolving airspace disease such as pneu monia. Additionally there is a left basilar pulmonary nodule on series 3 image 94 measuring 8 mm with a maximum SUV of 1.7. Is not hypermetabolic. ABDOMEN AND PELVIS: No suspicious hypermetabolic uptake. OSSEOUS STRUCTURES: No suspicious hypermetabolic uptake. OTHER CT: There is moderate background emphysematous change and subpleural reticulation suggesting co mponent of atelectasis and fibrosis. Three-vessel coronary artery calcifications are evident. There i s a pericardial effusion with a maximum SUV of 1.3 seen predominantly posteriorly left laterally carmenza uring up to 2.0 cm in greatest thickness on series 3 image 99. The heart is not enlarged. There is he rniation of mesenteric fat through the diaphragmatic hiatus. Moderate multilevel degenerative changes of the spine are noted. No suspicious metabolic lesion is se en although there is a focal punctate sclerotic lesion within the L2 right pedicle that is not hyperm etabolic with a maximum SUV of 2.0. Therefore this is favored to represent a bone island. There is a 1.4 cm left maxillary sinus mucosal retention cyst. Ascending thoracic aorta is upper limi ts of normal measuring 3.9 cm. The unenhanced liver, spleen, pancreas, and adrenal glands are grossly unremarkable other than pancreatic atrophy. Gallbladder is surgically absent. Vascular calcification s are seen of the renal arteries. No hydronephrosis. Kidneys are symmetric. Bowel is nondilated with few scattered colonic diverticula noted. Prostate gland is heterogenous. Urinary bladder is incomplet chary distended. Small urachal remnant is incidentally identified. There is an infrarenal abdominal aortic aneurysm measuring up to 4.0 x 4.1 cm extending into the comm on iliac arteries. The right common iliac artery measures 3.7 cm and the left common iliac artery randee sures 2.7 cm. The infrarenal abdominal aortic aneurysm measured 3.6 x 3.7 cm on the prior exam of 10/08/2016 and the right common iliac artery measured 3.1, the left measured 2.7. IMPRESSION: 1. Radiologic findings compatible with [id number] left upper lobe small cell pulmonary carcinoma with so litary hypermetabolic left perihilar lymph node, 2 left upper lobe masses invading the mediastinum wi th the largest measuring up to 4.7 cm, and no evidence of visceral metastasis within the chest, abdom en, or pelvis. 2. Nonhypermetabolic 8mm left basilar pulmonary nodule for which surveillance is recommended. 3. Left basilar consolidation that has improved from the prior and is below mediastinal background ac tivity suggesting resolving pneumonia. 4. Infrarenal abdominal aortic aneurysm enlarged from the prior 2016 and extending into the common il iac arteries.
== END | disposition home or self-care (01) ==
LOC: RADPETMAIN 12:26
PROVIDERS: ATTEND Internal Medicine Hematology & Oncology
DX: C34.12 Malignant neoplasm of upper lobe, left bronchus or lung (principal); R91.8 Other nonspecific abnormal finding of lung field; I71.4 Abdominal aortic aneurysm, without rupture
CPT/HCPCS: 78815; A9552

== ENCOUNTER 2018-06-02 07:59 | Day surgery (SDC) | payer MEDICARE ==
[2018-05-29 14:43] VITALS: BMI 29.0
[~2018-06-02 07:59] MED LIST changes: +DEXAMETHASONE SOD PHOSPHATE 10 MG/ML 1 ML VIAL IV ONE; -FAMOTIDINE 20 MG/2 ML VIAL IV PRN; -GENTAMICIN 120 MG in SODIUM CHLORIDE 0.9% 100 ML IVPB ONE; +HEPARIN SODIUM,PORCINE 5,000 UNIT/ML 1 ML VIAL SQ ONE; -HYDROmorphone 1 MG/ML 1 ML SYRINGE IVP PRN; -LIDOCAINE 1% 20 ML VIAL (10MG/ML) FOR IV START INTRADERMA PRN; +MIDAZOLAM 2 MG/2 ML VIAL IV PRN; +ONDANSETRON 4 MG/2 ML VIAL IVP ONE; -ONDANSETRON 4 MG/2 ML VIAL IVP PRN; +Pre Op ABX Message 1 EACH MISC MISCELLANE ONE; -ceFAZolin 2 GM in SODIUM CHLORIDE 0.9% 100 ML IVPB ONE; +fentaNYL (PF) 50 MCG/ML 2 ML AMP IV PRN
[2018-06-02 08:28] VITALS: RESP 16; TEMP 98.3
[2018-06-02 08:39] LABS: Glucose,Whole Blood 82 mg/dL (75-99)
[2018-06-02] MEDS ORDERED: LIDOCAINE 1% 20 ML VIAL (10MG/ML) FOR IV START INTRADERMA ONE (08:40)
--- NOTE | 2018-06-02 09:08 | P.GSHP ---
History of Present Illness H&P Date: 06/02/18 Chief Complaint: Lung cancer Patient recently diagnosed with lung cancer. Patient requires Port-A-Cath placement. He had recent chemo treatment earlier this week. Doing well at this time. He has not had a port in the past. Overall poor IV access. Past Medical History Past Medical History: Cancer, COPD, Eye Disorder, GERD/Reflux, GI Bleed, Hyperlipidemia, Hypertension, Osteoarthritis (OA), Prostate Disorder, Thyroid Disorder Additional Past Medical History / Comment(s): Lung Cancer;COPD,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; peripheral neuropathy, restless leg syndrome, chronic hypoxic respiratory failure with an oxygen at 2 L/m nasal cannula, glaucoma, hemorrhoids, BPH, diverticulosis, hiatal hernia, Garcia's esophagus, chronic gastritis, degenerative arthritis, previous SVT that was ablated History of Any Multi-Drug Resistant Organisms: None Reported Past Surgical History: Adenoidectomy, Cardiac Ablation, Cholecystectomy, Orthopedic Surgery, Tonsillectomy Additional Past Surgical History / Comment(s): cardiac ablation for SVT, mole removed from neck, R elbow surgery (tennis elbow), colonoscopy, circumcism, Vasectomy, R testicle surgery for infection, bilateral carpal tunnel releases. Past Anesthesia/Blood Transfusion Reactions: Family History of Problems w/ Anesthesia Additional Past Anesthesia/Blood Transfusion Reaction / Comment(s): DAUGHTER TAKES LONG TIME TO AWAKEN. Smoking Status: Former smoker - Past Family History Father Family Medical History: No Reported History Additional Family Medical History / Comment(s): Father was healthy and at age 84 yrs. Mother Family Medical History: Cancer Additional Family Medical History / Comment(s): Mother was healthy and in her 70's Brother(s) History Unknown: Yes Sister(s) Family Medical History: Osteoarthritis (OA) Medications and Allergies Home Medications Medication Instructions Recorded Confirmed Type ALPRAZolam [Xanax] 0.25 mg PO HS PRN 12/03/15 06/02/18 History Atorvastatin [Lipitor] 80 mg PO HS 12/03/15 06/02/18 History Ubidecarenone [Co Q-10] 200 mg PO HS 12/03/15 05/29/18 History Levothyroxine Sodium [Levoxyl] 150 mcg PO DAILY 10/08/16 06/02/18 History FLUoxetine HCL [PROzac] 40 mg PO HS 02/22/17 06/02/18 History Fluticasone/Vilanterol [Breo 1 inhalation INHALATION RT-DAILY 04/25/17 06/02/18 History Ellipta 200-25 Mcg INH] Hydrochlorothiazide [Hydrodiuril] 12.5 mg PO DAILY 04/25/17 06/02/18 History Multivit-Min/FA/Lycopen/Lutein 1 tab PO DAILY 11/28/17 06/02/18 History [Centrum Silver Tablet] Pantoprazole [Protonix] 40 mg PO AC-SUPPER 11/28/17 06/02/18 History amLODIPine [Norvasc] 5 mg PO DAILY #30 tab 11/30/17 06/02/18 Rx Albuterol Nebulized [Ventolin 2.5 mg INHALATION RT-TID 05/07/18 06/02/18 History Nebulized] QUEtiapine FUMARATE [SEROquel] 25 mg PO HS 05/07/18 06/02/18 History Ramipril 10 mg PO DAILY 05/07/18 06/02/18 History Tamsulosin HCl [Flomax] 0.4 mg PO DAILY 05/07/18 06/02/18 History Tiotropium 18 Mcg/Puff [Spiriva] 1 cap INHALATION RT-DAILY 05/07/18 06/02/18 History predniSONE 5 mg PO HS 05/07/18 06/02/18 History Pramipexole [Mirapex] 0.5 mg PO TID #0 05/12/18 06/02/18 Rx Allergies Allergy/AdvReac Type Severity Reaction Status Date / Time Pepperoni AdvReac Nausea & Uncoded 06/02/18 08:32 Vomiting Surgical - Exam Vital Signs Temp Pulse Resp BP Pulse Ox 98.3 F 91 16 127/77 93 L 06/02/18 08:26 06/02/18 08:26 06/02/18 08:26 06/02/18 08:26 06/02/18 08:26 Physical exam: General: Well-developed, well-nourished HEENT: Normocephalic, sclerae nonicteric Abdomen: Nontender, nondistended Extremities: No edema Neuro: Alert and oriented Assessment and Plan (1) Lung cancer Narrative/Plan: Will proceed with Port-A-Cath placement at this time. Risks of bleeding, infection, DVT, pneumothorax, catheter malfunction, anesthesia related complications were discussed. The patient understands and wishes to proceed. Current Visit: No Status: Acute Code(s): C34.90 - MALIGNANT NEOPLASM OF UNSP PART OF UNSP BRONCHUS OR LUNG SNOMED Code(s): 117223679
[2018-06-02] MEDS ORDERED: fentaNYL (PF) 50 MCG/ML 2 ML AMP ONE (09:11)
[2018-06-02] MEDS ORDERED: LIDOCAINE (PF) 10 MG/ML 2 ML VIAL SQ ONE ×2 (09:11)
[2018-06-02] MEDS ORDERED: MIDAZOLAM 2 MG/2 ML VIAL ONE (09:11)
[2018-06-02] MEDS ORDERED: HEPARIN SODIUM,PORCINE 100 UNIT/ML 5 ML VIAL IV ONE ×2 (09:11)
[2018-06-02] MEDS ORDERED: PROPOFOL 10 MG/ML 20 ML VIAL IV ONE (09:11)
[2018-06-02] MEDS ORDERED: NALOXONE 0.4 MG/ML 1 ML VIAL IV PRN (09:53)
[2018-06-02] MEDS ORDERED: HYDROcodone/APAP 5-325MG 1 EACH TAB PO PRN (09:53)
--- NOTE | 2018-06-02 09:55 | P.OP ---
Date of Procedure: 06/02/18 Procedure(s) Performed: PREOPERATIVE DIAGNOSIS: Lung cancer POSTOPERATIVE DIAGNOSIS: Same PROCEDURE: Port-A-Cath placement SURGEON: Kaitlyn EBL: Minimal ANESTHESIA: Sedation COMPLICATIONS: None OPERATIVE PROCEDURE: Patient was brought and placed on the operative table in the supine position. The patient was sedated per anesthesia that time. The chest and neck were prepped and draped in usual sterile fashion. The ultrasound probe was used to identify the location of the right internal jugular vein. The skin was localized with lidocaine. The Seldinger needle was advanced into the IJ under ultrasound guidance. The wire was advanced through the needle under fluoroscopic guidance into the superior vena cava. A port pocket was created in the right infraclavicular location. The catheter was tunneled from the wire entrance site to the port pocket. The port was then connected to the catheter. The dilator introducer was threaded over the guidewire. The guidewire and dilator were then removed. The catheter was advanced through the introducer and introducer was then removed. The tip was seen to be in the right atrial junction. Port was flushed with both saline and a Hep-Lock solution. There was good flow both in and out of the port. The port was sutured in underlying tissues using 3-0 silk sutures. The subcutaneous tissues were reapproximated using 3-0 Vicryl sutures and the skin at both locations using 4-0 Monocryl sutures. Steri-Strips and sterile dressings then applied. DISPOSITION: Stable to recovery room
--- NOTE | 2018-06-02 10:00 | FL ---
EXAMINATION TYPE: FL guided central line placemt DATE OF EXAM: 06/02/2018 CLINICAL HISTORY: Fluoroscopic guidance for Mediport placement. TECHNIQUE: Fluoroscopy. COMPARISON: None. FINDINGS/IMPRESSION: Fluoroscopic guidance was provided during procedure performed by Dr. Sahni. A total of 12 seconds of fluoroscopic time was utilized during the procedure and 1 spot images was acqu ired during placement of the Mediport.
--- NOTE | 2018-06-02 10:26 | XR ---
EXAMINATION TYPE: XR chest 1V confirm line [facility] DATE OF EXAM: 06/02/2018 COMPARISON: 05/10/2018 HISTORY: MediPort insertion. TECHNIQUE: Single frontal view of the chest is obtained. FINDINGS: Right-sided Mediport has been inserted in the interim and terminates in the superior vena cava. No postprocedural pneumothorax is seen. Right apical pleural thickening is unchanged from the p rior. Left midlung consolidation and retrocardiac airspace disease are also similar with left hemidia phragm elevation again noted. Right lung remains overall clear. Biapical lucency represents underlyin g COPD. Mediastinal widening is attributable to the known mediastinal mass. IMPRESSION: Interval insertion of a right-sided Mediport terminating in the superior vena cava witho ut postprocedural pneumothorax, otherwise unchanged exam from the prior.
[2018-06-02 11:06] VITALS: BP 120/75; PULSE 82
== END 2018-06-02 11:40 | disposition home or self-care (01) ==
LOC: OR 07:59
PROVIDERS: ATTEND Surgery
DX: C34.90 Malignant neoplasm of unspecified part of unspecified bronchus or lung (principal); J44.9 Chronic obstructive pulmonary disease, unspecified; Z87.891 Personal history of nicotine dependence; K44.9 Diaphragmatic hernia without obstruction or gangrene; K21.9 Gastro-esophageal reflux disease without esophagitis; E78.5 Hyperlipidemia, unspecified; I10 Essential (primary) hypertension; M19.90 Unspecified osteoarthritis, unspecified site; N42.9 Disorder of prostate, unspecified; K57.30 Diverticulosis of large intestine without perforation or abscess without bleeding; I71.9 Aortic aneurysm of unspecified site, without rupture; I67.1 Cerebral aneurysm, nonruptured; G62.9 Polyneuropathy, unspecified; G25.81 Restless legs syndrome; J96.11 Chronic respiratory failure with hypoxia; Z99.81 Dependence on supplemental oxygen; H40.9 Unspecified glaucoma; N40.0 Benign prostatic hyperplasia without lower urinary tract symptoms; E03.9 Hypothyroidism, unspecified; Z79.890 Hormone replacement therapy; Z79.51 Long term (current) use of inhaled steroids; Z79.52 Long term (current) use of systemic steroids; Z79.899 Other long term (current) drug therapy; Z91.018 Allergy to other foods
CPT/HCPCS: 77001; 36561; 76937; C1788; J2250; J2001; J1642; J3010; J2704

== ENCOUNTER → 2018-07-18 | Outpatient (CLI) | payer MEDICARE ==
[2018-07-18 10:22] LABS: Blood Urea Nitrogen 23 mg/dL (9-20)
--- NOTE | 2018-07-18 12:47 | CT ---
EXAMINATION TYPE: CT chest w con DATE OF EXAM: 07/18/2018 COMPARISON: 05/09/2018 and PET/CT 05/20/2018 HISTORY: 77-year-old male follow-up Lung Cancer TECHNIQUE: Contiguous axial scanning of the chest after the administration of 100 ml mL of Isovue 300 . Coronal/sagittal reconstructions performed. CT DLP: 569mGycm. Automatic exposure control utilized for a dose reduction. FINDINGS: Heart normal size with small pericardial effusion. Coronary vessel calcifications are present. Ectatic ascending aorta at 3.6 cm with moderate atherosclerotic arch calcifications and conventional arch vessel branching anatomy. Large caliber to the main right and left pulmonary arteries are 3.0 and 2.5 cm, respectively, suggest ing underlying pulmonary artery hypertension. There is retained fluid along the esophagus. This could represent gastroesophageal reflux. Patient's 2 large AP window lymph nodes show significant decrease in size now measuring 2.8 x 1.9 cm versus 5.0 x 5.0 cm, previously. The second node measures 2.2 x 1.8 cm versus 3.9 x 3.5 cm, previousl y. A left infrahilar lymph node measures 1.7 x 1.1 cm versus 1.8 x 1.4 cm, previously No new thoracic lymphadenopathy seen. There is improving but residual consolidation and volume loss at the posterior left base with asymmet loretta elevation of left hemidiaphragm. Background of moderate to advanced centrilobular emphysema. Depe ndent atelectasis on the right. A couple 4 mm left-sided pulmonary nodules especially in the midlung, refer to axial image 22 and 24 are unchanged. The previously seen 8 mm left lower lobe pulmonary nodule is no longer identified. Visualized upper abdomen shows cholecystectomy clips and clear adrenal glands and a tiny hilar splenu le. Bones: Mild to moderate multilevel degenerative disc disease. More advanced spondylotic change visual ized lower cervical spine. No osseous destructive process. IMPRESSION: 1. Partial treatment response with decreasing size of patient's medial left upper lobe/AP window mass es (2.8 cm versus 5.0 cm, previously) and slightly decreasing size of the patient's left hilar lymph note. 2. A couple 4 mm left mid lung pulmonary nodules are unchanged. The previously seen 8 mm left lower l obe pulmonary nodule is no longer seen. 3. COPD with moderate to advanced emphysema and pulmonary arterial hypertension. 4. Improving but residual volume loss and patchy infiltrate in the left lower lobe. 5. A column of fluid within the esophagus could represent retained fluid due to poor esophageal motil ity or could represent gastroesophageal reflux. Clinically correlate.
== END | disposition home or self-care (01) ==
LOC: RADPROMAIN 09:47
PROVIDERS: ATTEND Internal Medicine Hematology & Oncology
DX: C34.92 Malignant neoplasm of unspecified part of left bronchus or lung (principal); J43.9 Emphysema, unspecified; I27.21 Secondary pulmonary arterial hypertension
CPT/HCPCS: 82565; 84520; 71260; J1642; Q9967

== ENCOUNTER → 2018-10-04 | Outpatient (CLI) | payer MEDICARE ==
[2018-10-04 14:46] LABS: Blood Urea Nitrogen 21 mg/dL (9-20)
--- NOTE | 2018-10-04 22:36 | CT ---
EXAMINATION TYPE: CT ChestAbdPelvis w con DATE OF EXAM: 10/04/2018 COMPARISON: CT chest 07/18/2018 and PET/CT 05/20/2018 HISTORY: 77-year-old male Lung cancer. TECHNIQUE: Contiguous axial scanning of the chest, abdomen, and pelvis performed with IV Contrast, pa tient injected with 100ml mL of Isovue 300. Delayed images through the kidneys were obtained. Coronal /sagittal reconstructions performed. CT DLP: 1039.3 mGycm Automated exposure control for dose reduction was used. FINDINGS: Chest: Normal size with trace pericardial thickening/fluid coronary vessel calcifications are present in rem arkable for coronary artery disease. Ascending aorta is ectatic at 3.7 cm. Moderate atherosclerotic arch calcifications with conventional arch vessel branching anatomy. Ectatic upper descending thoracic aorta at 3.1 cm. There Right anterior chest wall injection port has catheter tip at the cavoatrial junction. The medial left upper lobe/AP window masses show progressive decrease in size now measuring 1.9 x 1.5 cm versus 2.8 x 1.9 cm, previously and the second one measuring 1.7 x 1.0 cm versus 2.2 x 1.8 cm, pr eviously. Left hilar lymph node measures 1.7 x 1.3 cm versus 1.7 x 1.1 cm, previously, not significantly change d. No new mediastinal or other thoracic lymphadenopathy seen. There is some oral contrast material seen extending into the distal half thoracic esophagus. Borderline to mildly enlarged caliber to the main right and left pulmonary arteries are 2.8 and 2.5 c m, respectively, suggesting underlying pulmonary arterial hypertension. Stable residual patchy consolidation and volume loss in the left lower lobe. Given the stability, chr onic scarring is suggested now. Moderate to advanced centrilobular emphysema redemonstrated demonstrated with a stable left mid lung pulmonary nodules measuring up to 6 mm, axial images 20 and 22. No pleural effusion. ABDOMEN: No focal liver lesion or biliary ductal dilatation. Portal venous system is patent. Cholecystectomy c lips. Adrenal glands, left kidney, spleen, and pancreas appear within normal limits. Tiny subcentimeter hypodensity lower pole right kidney too small fractured CT characterization, likel y a tiny cyst. No dilated small bowel, free fluid, or free air. No mesenteric or retroperitoneal lymphadenopathy. Normal appendix. Contrast progressed to the rectum. Scattered mild left-sided colonic diverticular ch tiffani without pericolonic inflammation. Redemonstrated AAA and aneurysms of the common iliac arteries. AAA measures up to 4.0 cm, unchanged. Right common iliac artery aneurysm measures up to 4.0 cm versus 3.7 cm, previously. Left common iliac artery aneurysm measures 2.9 cm versus 2.8 cm, previously. Pelvis: Bladder urine distended. There is a funnel-shaped extension of the bladder into the upper prostate johns ggesting prior TURP. Patulous inguinal canals. No abnormal fluid collection in the pelvis or pelvic l ymphadenopathy seen. Bones: Degenerative changes of the hips and throughout the lumbar spine with multilevel grade 1 retrolisthes es, variable spinal canal or neuroforaminal narrowing, and Baastrup's disease. No osseous destructive process. IMPRESSION: 1. CONTINUED DECREASE IN SIZE OF THE PATIENT'S MEDIAL LEFT UPPER LOBE/AP WINDOW MASSES CURRENTLY DANA URING 1.9 AND 1.7 CM (VERSUS 2.8 AND 2.2 CM, PREVIOUSLY AND RESPECTIVELY). 2. THE LEFT HILAR LYMPH NODE IS STABLE AT 1.7 CM. 3. A COUPLE LEFT MID LUNG PULMONARY NODULES MEASURING UP TO 6 MM ARE ALSO UNCHANGED. 4. MODERATE TO ADVANCED EMPHYSEMA WITH PULMONARY ARTERIAL HYPERTENSION. CHRONIC CONSOLIDATION AND VOL UME LOSS IN THE LEFT LOWER LOBE NOW SUGGESTING SCARRING GIVEN STABILITY. 5. STABLE AAA AT 4.0 CM. RIGHT COMMON ILIAC ARTERY ANEURYSM IS STABLE TO SLIGHTLY INCREASED AT 4.0 CM (VERSUS 3.7 CM, PREVIOUSLY). LEFT COMMON ILIAC ARTERY ANEURYSM RELATIVELY STABLE AT 2.9 CM (VERSUS 2 .8 CM, PREVIOUSLY). CONSIDER VASCULAR SURGERY REFERRAL ESPECIALLY FOR THE RIGHT COMMON ILIAC ARTERY I F NOT ALREADY PERFORMED.
== END ==
LOC: RADPROMAIN 13:52
PROVIDERS: ATTEND Internal Medicine Hematology & Oncology
DX: C34.92 Malignant neoplasm of unspecified part of left bronchus or lung (principal); J43.9 Emphysema, unspecified; I27.21 Secondary pulmonary arterial hypertension; I71.4 Abdominal aortic aneurysm, without rupture; I72.3 Aneurysm of iliac artery; R91.8 Other nonspecific abnormal finding of lung field
CPT/HCPCS: 82565; 84520; 71260; 74177; 36415; J1642; Q9967

== ENCOUNTER 2018-11-08 11:06 | Inpatient (IN) | payer MEDICARE ==
[2018-11-08] MEDS ORDERED: IPRATROPIUM 0.5 MG/2.5 ML NEBU INHALATION STA (12:10)
[2018-11-08] MEDS ORDERED: methylPREDNISolone SOD SUCCI 125 MG/2 ML VIAL IV STA (12:10)
[2018-11-08] MEDS ORDERED: ALBUTEROL NEBULIZED 2.5 MG/3 ML INHALATION STA (12:10)
--- NOTE | 2018-11-08 12:15 | ED ---
General Adult HPI - General Chief complaint: Shortness of Breath Stated complaint: Congestion, ELGIN Time Seen by Provider: 11/08/18 11:15 Source: patient, family, RN/MD, RN notes reviewed Mode of arrival: ambulatory Limitations: no limitations - History of Present Illness Initial comments: This is a 78-year-old male who presents emergency Department with a past medical history significant for COPD and smoking. Patient states she quit smoking 3 years ago. Patient also has been diagnosed with small cell lung cancer and has been treated with chemotherapy and more recently radiation. According to the family he had 2 episodes yesterday while he was sitting that he became unresponsive for about 3 minutes at a time. Patient states he had no symptoms prior or after any denies any headache. Family states that he has been coughing a little bit more lately and wheezing so at his appointment today for radiation a checked his pulse ox and it was 89 so they sent to the emergency department. Patient denies any chest pain or palpitations. Patient states he is normally on 2 L oxygen. Patient denies any abdominal pain patient denies nausea vomiting diarrhea. Patient denies any calf tenderness or leg swelling. - Related Data Home Medications Medication Instructions Recorded Confirmed ALPRAZolam [Xanax] 0.25 mg PO TID PRN 12/03/15 11/08/18 Atorvastatin [Lipitor] 80 mg PO DAILY 12/03/15 11/08/18 Ubidecarenone [Co Q-10] 200 mg PO DAILY 12/03/15 11/08/18 Levothyroxine Sodium [Levoxyl] 150 mcg PO DAILY 10/08/16 11/08/18 FLUoxetine HCL [PROzac] 40 mg PO DAILY 02/22/17 11/08/18 Fluticasone/Vilanterol [Breo 1 inhalation INHALATION RT-DAILY 04/25/17 11/08/18 Ellipta 200-25 Mcg INH] Hydrochlorothiazide [Hydrodiuril] 12.5 mg PO DAILY 04/25/17 11/08/18 Multivit-Min/FA/Lycopen/Lutein 1 tab PO DAILY 11/28/17 11/08/18 [Centrum Silver Tablet] Pantoprazole [Protonix] 40 mg PO DAILY 11/28/17 11/08/18 Albuterol Nebulized [Ventolin 2.5 mg INHALATION RT-TID 05/07/18 11/08/18 Nebulized] QUEtiapine FUMARATE [SEROquel] 25 mg PO HS 05/07/18 11/08/18 Ramipril 10 mg PO DAILY 05/07/18 11/08/18 Tamsulosin HCl [Flomax] 0.4 mg PO DAILY 05/07/18 11/08/18 Tiotropium 18 Mcg/Puff [Spiriva] 1 cap INHALATION RT-DAILY 05/07/18 11/08/18 predniSONE 10 mg PO DAILY 05/07/18 11/08/18 Pramipexole [Mirapex] 0.5 mg PO TID PRN 11/08/18 11/08/18 Allergies Allergy/AdvReac Type Severity Reaction Status Date / Time Pepperoni AdvReac Nausea & Uncoded 11/08/18 11:14 Vomiting Review of Systems ROS Statement: Those systems with pertinent positive or pertinent negative responses have been documented in the HPI. ROS Other: All systems not noted in ROS Statement are negative. Past Medical History Past Medical History: Cancer, COPD, Eye Disorder, GERD/Reflux, GI Bleed, Hyperlipidemia, Hypertension, Osteoarthritis (OA), Prostate Disorder, Thyroid Disorder Additional Past Medical History / Comment(s): Lung Cancer;COPD,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; peripheral neuropathy, restless leg syndrome, chronic hypoxic respiratory failure with an oxygen at 2 L/m nasal cannula, glaucoma, hemorrhoids, BPH, diverticulosis, hiatal hernia, Garcia's esophagus, chronic gastritis, degenerative arthritis, previous SVT that was ablated History of Any Multi-Drug Resistant Organisms: None Reported Past Surgical History: Adenoidectomy, Cardiac Ablation, Cholecystectomy, Orthopedic Surgery, Tonsillectomy Additional Past Surgical History / Comment(s): cardiac ablation for SVT, mole removed from neck, R elbow surgery (tennis elbow), colonoscopy, circumcism, Vasectomy, R testicle surgery for infection, bilateral carpal tunnel releases. Past Anesthesia/Blood Transfusion Reactions: Family History of Problems w/ Anesthesia Additional Past Anesthesia/Blood Transfusion Reaction / Comment(s): DAUGHTER TAKES LONG TIME TO AWAKEN. Past Psychological History: Anxiety, Depression Smoking Status: Former smoker Past Alcohol Use History: None Reported Past Drug Use History: None Reported - Past Family History Father Family Medical History: No Reported History Additional Family Medical History / Comment(s): Father was healthy and at age 84 yrs. Mother Family Medical History: Cancer Additional Family Medical History / Comment(s): Mother was healthy and in her 70's Brother(s) History Unknown: Yes Sister(s) Family Medical History: Osteoarthritis (OA) General Exam - General Exam Comments Initial Comments: GENERAL: Patient is well-developed and well-nourished. Patient is nontoxic and well- hydrated and is in mild distress. ENT: Neck is soft and supple. No significant lymphadenopathy is noted. Oropharynx is clear. Moist mucous membranes. Neck has full range of motion without eliciting any pain. EYES: The sclera were anicteric and conjunctiva were pink and moist. Extraocular movements were intact and pupils were equal round and reactive to light. Eyelids were unremarkable. PULMONARY: Patient has diffuse wheezing CARDIOVASCULAR: There is a regular rate and rhythm without any murmurs gallops or rubs. ABDOMEN: Soft and nontender with normal bowel sounds. No palpable organomegaly was noted. There is no palpable pulsatile mass. SKIN: Skin is clear with no lesions or rashes and otherwise unremarkable. NEUROLOGIC: Patient is alert and oriented x3. Cranial nerves II through XII are grossly intact. Motor and sensory are also intact. Normal speech, volume and content. Symmetrical smile. MUSCULOSKELETAL: Normal extremities with adequate strength and full range of motion. No lower extremity swelling or edema. No calf tenderness. LYMPHATICS: No significant lymphadenopathy is noted PSYCHIATRIC: Normal psychiatric evaluation. Limitations: no limitations Course Vital Signs 11/08/18 11/08/18 11/08/18 11:14 12:53 13:08 Temperature 98.1 F Pulse Rate 106 H 94 98 Respiratory 18 Rate Blood Pressure 111/68 O2 Sat by Pulse 93 L Oximetry Medical Decision Making - Medical Decision Making Chest x-ray shows no acute abnormalities.. Patient received 3 breathing treatments and Solu-Medrol the emergency department in though he was slightly improved even a little bit of exertion makes him extremely dyspneic. I spoke with Dr. Kelechi Lorenz agreed to admit the patient admitted the patient continued the breathing treatments and steroids on the floor and I consult pulmonology. EKG shows normal sinus rhythm at 90 bpm NE interval is 176 dresses 90 QT interval 360 QTC is 459 per patient's EKG shows no ST segment elevation or depression. - Lab Data Result diagrams: 11/08/18 12:00 11/08/18 12:00 Lab Results 11/08/18 11/08/18 11/08/18 Range/Units 12:00 12:00 12:00 WBC 9.0 (3.8-10.6) k/uL RBC 3.96 L (4.30-5.90) m/uL Hgb 12.7 L (13.0-17.5) gm/dL Hct 38.2 L (39.0-53.0) % MCV 96.4 (80.0-100.0) fL MCH 32.0 (25.0-35.0) pg MCHC 33.2 (31.0-37.0) g/dL RDW 15.6 H (11.5-15.5) % Plt Count 155 (150-450) k/uL Neutrophils % 91 % Lymphocytes % 3 % Monocytes % 4 % Eosinophils % 2 % Basophils % 0 % Neutrophils # 8.2 H (1.3-7.7) k/uL Lymphocytes # 0.2 L (1.0-4.8) k/uL Monocytes # 0.3 (0-1.0) k/uL Eosinophils # 0.2 (0-0.7) k/uL Basophils # 0.0 (0-0.2) k/uL PT (9.0-12.0) sec INR (<1.2) APTT (22.0-30.0) sec Sodium 139 (137-145) mmol/L Potassium 4.0 (3.5-5.1) mmol/L Chloride 98 (98-107) mmol/L Carbon Dioxide 32 H (22-30) mmol/L Anion Gap 9 mmol/L BUN 22 H (9-20) mg/dL Creatinine 0.72 (0.66-1.25) mg/dL Est GFR (CKD-EPI)AfAm >90 (>60 ml/min/1.73 sqM) Est GFR (CKD-EPI)NonAf 89 (>60 ml/min/1.73 sqM) Glucose 167 H (74-99) mg/dL Calcium 9.2 (8.4-10.2) mg/dL Magnesium 1.7 (1.6-2.3) mg/dL Total Bilirubin 1.5 H (0.2-1.3) mg/dL AST 19 (17-59) U/L ALT 33 (21-72) U/L Alkaline Phosphatase 102 (38-126) U/L Total Creatine Kinase 28 L (55-170) U/L CK-MB (CK-2) 0.5 (0.0-2.4) ng/mL CK-MB (CK-2) Rel Index 1.8 Troponin I <0.012 (0.000-0.034) ng/mL NT-Pro-B Natriuret Pep pg/mL Total Protein 6.4 (6.3-8.2) g/dL Albumin 3.9 (3.5-5.0) g/dL 11/08/18 11/08/18 Range/Units 12:00 12:00 WBC (3.8-10.6) k/uL RBC (4.30-5.90) m/uL Hgb (13.0-17.5) gm/dL Hct (39.0-53.0) % MCV (80.0-100.0) fL MCH (25.0-35.0) pg MCHC (31.0-37.0) g/dL RDW (11.5-15.5) % Plt Count (150-450) k/uL Neutrophils % % Lymphocytes % % Monocytes % % Eosinophils % % Basophils % % Neutrophils # (1.3-7.7) k/uL Lymphocytes # (1.0-4.8) k/uL Monocytes # (0-1.0) k/uL Eosinophils # (0-0.7) k/uL Basophils # (0-0.2) k/uL PT 10.1 (9.0-12.0) sec INR 0.9 (<1.2) APTT 23.1 (22.0-30.0) sec Sodium (137-145) mmol/L Potassium (3.5-5.1) mmol/L Chloride (98-107) mmol/L Carbon Dioxide (22-30) mmol/L Anion Gap mmol/L BUN (9-20) mg/dL Creatinine (0.66-1.25) mg/dL Est GFR (CKD-EPI)AfAm (>60 ml/min/1.73 sqM) Est GFR (CKD-EPI)NonAf (>60 ml/min/1.73 sqM) Glucose (74-99) mg/dL Calcium (8.4-10.2) mg/dL Magnesium (1.6-2.3) mg/dL Total Bilirubin (0.2-1.3) mg/dL AST (17-59) U/L ALT (21-72) U/L Alkaline Phosphatase (38-126) U/L Total Creatine Kinase (55-170) U/L CK-MB (CK-2) (0.0-2.4) ng/mL CK-MB (CK-2) Rel Index Troponin I (0.000-0.034) ng/mL NT-Pro-B Natriuret Pep 129 pg/mL Total Protein (6.3-8.2) g/dL Albumin (3.5-5.0) g/dL Critical Care Time Critical Care Time: Yes Total Critical Care Time: 35 Disposition Clinical Impression: Acute exacerbation of chronic obstructive pulmonary disease (COPD) Disposition: ADMITTED IP TO THIS HOSP Referrals: Leonardo Gutierrez MD [Primary Care Provider] - 1-2 days Time of Disposition: 14:02
[2018-11-08 12:47] LABS: Basophils % (A) 0 %; Eosinophils # (A) 0.2 k/uL (0-0.7); Eosinophils % (A) 2 %; HCT 38.2 % (39.0-53.0); HGB 12.7 gm/dL (13.0-17.5); INR 0.9 (<1.2); Lymphocytes # (A) 0.2 k/uL (1.0-4.8); Lymphocytes % (A) 3 %; MCHC 33.2 g/dL (31.0-37.0); MCV 96.4 fL (80.0-100.0); Mean Platelet Volume 7.1; Monocytes # (A) 0.3 k/uL (0-1.0); Monocytes % (A) 4 %; Neutrophils # (A) 8.2 k/uL (1.3-7.7); Neutrophils % (A) 91 %; Partial Thromboplastin Time 23.1 sec (22.0-30.0); Platelet Count 155 k/uL (150-450); Prothrombin Time 10.1 sec (9.0-12.0); RBC 3.96 m/uL (4.30-5.90); RDW 15.6 % (11.5-15.5)
--- NOTE | 2018-11-08 12:51 | XR ---
EXAMINATION TYPE: XR chest 2V DATE OF EXAM: 11/08/2018 COMPARISON: Chest x-ray June 02, 2018. CT October 04, 2018 HISTORY: Difficulty breathing, history of tobacco use and lung cancer. TECHNIQUE: Frontal and lateral views of the chest are obtained. FINDINGS: There is redemonstration of right internal jugular Mediport catheter, tip is more proximal in location likely near brachiocephalic confluence on current study. Osseous structures remain demineralized with multilevel spurring and S-shaped scoliotic curvature. There is background chronic emphysematous change with elevated left hemidiaphragm and persistent left basilar scarring and/or chronic opacities. Right lung remains clear. Cardiac silhouette size is diff icult to assess due to elevated left hemidiaphragm with stable and within normal limits with atherosc lerotic and ectatic thoracic aorta. IMPRESSION: Chronic emphysematous change and chronic left basilar findings without convincing eviden ce for new acute pulmonary process though acute on chronic disease left lung base would be difficult to entirely exclude.
[2018-11-08 13:02] LABS: ALT 33 U/L (21-72); AST 19 U/L (17-59); Albumin 3.9 g/dL (3.5-5.0); Alkaline Phosphatase 102 U/L (38-126); Anion Gap 9 mmol/L; Blood Urea Nitrogen 22 mg/dL (9-20); Calcium 9.2 mg/dL (8.4-10.2); Carbon Dioxide 32 mmol/L (22-30); Chloride 98 mmol/L (98-107); Glucose 167 mg/dL (74-99); Magnesium 1.7 mg/dL (1.6-2.3); Sodium 139 mmol/L (137-145); Total Bilirubin 1.5 mg/dL (0.2-1.3); Total Protein 6.4 g/dL (6.3-8.2)
[2018-11-08 13:03] LABS: Creatine Kinase 28 U/L (55-170)
[2018-11-08 13:16] LABS: Creatine Kinase MB 0.5 ng/mL (0.0-2.4); Troponin I <0.012 ng/mL (0.000-0.034)
[2018-11-08] MEDS ORDERED: SODIUM CHLORIDE 0.9% 500 ML 500 ML IV ONE (13:25)
[2018-11-08 16:49] VITALS: BMI 25.8
[2018-11-08] MEDS: IPRATROPIUM-ALBUTEROL 3 ML NEB INHALATION PRN ×2 (17:40→20:48)
[2018-11-08] MEDS ORDERED: methylPREDNISolone SOD SUCCI 125 MG/2 ML VIAL IV SCH (18:00)
[2018-11-08] MEDS ORDERED: ALPRAZolam 0.25 MG TAB PO PRN (19:13)
[2018-11-08] MEDS: LEVOTHYROXINE 75 MCG TAB PO SCH (19:59)
[2018-11-08] MEDS: TAMSULOSIN 0.4 MG CAP.ER.24H PO SCH (20:00)
[2018-11-08] MEDS: ATORVASTATIN 80 MG TAB PO SCH (20:00)
[2018-11-08] MEDS: FLUoxetine HCL 20 MG CAP PO SCH (20:00)
[2018-11-08] MEDS: LISINOPRIL 20 MG TAB PO SCH (20:00)
[2018-11-08] MEDS: QUEtiapine 25 MG TAB PO SCH (20:01)
[2018-11-08] MEDS: PANTOPRAZOLE 40 MG TABLET PO SCH (20:01)
[2018-11-08] MEDS ORDERED: MELATONIN 3 MG TABLET PO PRN (20:57)
[2018-11-08] MEDS ORDERED: ACETAMINOPHEN TAB 325 MG TAB PO PRN (20:57)
[2018-11-08] MEDS ORDERED: NALOXONE 0.4 MG/ML 1 ML VIAL IV PRN (20:57)
[2018-11-08] MEDS ORDERED: CALCIUM CARBONATE 500 MG CHEWABLE PO PRN (20:57)
[2018-11-08] MEDS ORDERED: ONDANSETRON 4 MG/2 ML VIAL IVP PRN (20:57)
[2018-11-08] MEDS ORDERED: LACTULOSE 20 GM/30 ML CUP PO PRN (20:57)
[2018-11-08] MEDS: BUDESONIDE 1 MG/2 ML NEBU INHALATION SCH (21:39)
--- NOTE | 2018-11-08 22:00 | HP ---
HISTORY AND PHYSICAL DATE OF ADMISSION: 11/08/2018 PRESENTING COMPLAINT: Short of breath. HISTORY OF PRESENTING COMPLAINT: This is a 78-year-old patient with a rather extensive medical history who was last seen by me in April of last year. Patient follows with Dr. Leonardo Gutierrez. Chronic stable medical conditions include diverticulosis, GERD, hyperlipidemia, hypertension, osteoarthritis, BPH. Patient has been diagnosed with diagnosed with lung cancer, small- cell type. Patient did get chemotherapy and getting radiation treatment by Dr. Grace. Patient for the last 2 days was becoming more and more short of breath, wheezing, with cough, congested, not able to bring up much sputum, tired, rundown. No obvious fever or chills. Hence patient was admitted through the ER. Apparently the patient had passed out x2. Patient did have an MRI of the brain in April of 2018 that showed diffuse cerebral atrophy. EEG done at the same time was within normal limits. Two-D echocardiogram showed EF of 55% to 60% from the same time. The patient also had a PET scan in April. Patient does inform me that since his treatment, most of the tumor has cleared up. The patient does feel tired and rundown. He is on home oxygen 2 L. REVIEW OF SYSTEMS: CONSTITUTIONAL: Tired. HEENT: Decreased hearing. RESPIRATORY: As above. CARDIOVASCULAR: No chest pain. GASTROINTESTINAL: None. GENITOURINARY: None. MUSCULOSKELETAL: Some pain in joints. DERMATOLOGICAL: None. HEMATOLOGICAL: None. LYMPHATICS: None. PSYCHIATRY: Slightly forgetful. NEUROLOGICAL: No focal weakness. PAST MEDICAL HISTORY: 1. Small-cell lung cancer, getting chemo and radiation treatment. 2. COPD, on home oxygen. 3. Left middle cerebral artery saccular aneurysm. 4. Colonic diverticulosis. 5. GERD. 6. Hyperlipidemia. 7. Hypertension. 8. Primary osteoarthritis. 9. BPH. 10.Restless legs syndrome. 11.Peripheral neuropathy. 12.Chronic hemorrhoids. PAST SURGICAL HISTORY: 1. Adenoidectomy. 2. Cardiac ablation. 3. Cholecystectomy. 4. Tonsillectomy. 5. Cardiac ablation for SVT. 6. Mole removed from the neck. 7. Right elbow surgery. 8. Circumcision. 9. Vasectomy. 10.Right testicle surgery for infection. 11.Bilateral carpal tunnel release. PSYCH HISTORY: Anxiety, depression. SOCIAL HISTORY: Patient's in 2005. Lives with his daughter Rupa. Home oxygen, 4-wheeled walker with seat at times. Patient smoked for 49 years, stopped in 2016. Smoked a pack a day. Patient quit heavy drinking 10 years ago. FAMILY HISTORY: Unremarkable, with rather healthy members. HOME MEDICATIONS: 1. Prozac 40 mg daily. 2. Co-Q 10 200 mg daily. 3. Spiriva 1 capsule daily. 4. Ramipril 10 mg p.o. daily. 5. Centrum Silver 1 tablet p.o. daily. 6. Ventolin 2.5 t.i.d. 7. Breo Ellipta 20/25 inhalation daily. 8. Lipitor 80 mg daily. 9. Xanax 0.25 p.o. t.i.d. p.r.n. 10.Seroquel 25 mg at bedtime. 11.Mirapex 0.5 mg p.o. t.i.d. p.r.n. 12.Protonix 40 mg p.o. daily. 13.Hydrochlorothiazide 12.5 p.o. daily. 14.Prednisone 10 mg p.o. daily. 15.Flomax 0.4 mg p.o. daily. 16.Levoxyl 150 mcg p.o. daily. ALLERGIES: PEPPERONI causing nausea and vomiting. PHYSICAL EXAMINATION: VITAL SIGNS ON PRESENTATION: Temperature 97.9, pulse 99, respiration 16, blood pressure 122/75, pulse ox 95% on 2 L. GENERAL APPEARANCE: Average build; BMI 25.8. Lying in bed, tired-appearing. EYES: Pupils equal. Conjunctivae normal. HEENT: External appearance of nose and ears normal. Oral cavity normal. NECK: JVD not raised. Mass not palpable. RESPIRATORY: Effort increased. LUNGS: Decreased breath sounds. Prolonged expiration and wheezing. CARDIOVASCULAR: First and second sounds normal. No edema. ABDOMEN: Soft, non-tender. Liver and spleen not palpable. LYMPHATIC: No lymph node palpable in neck or axillae. PSYCHIATRY: Patient is able answer simple questions. Trouble with more detailed answers. NEUROLOGICAL: Pupils equal. Cranial nerves grossly intact. Power and sensation grossly intact. INVESTIGATIONS: White count 9, hemoglobin 12.7, potassium 4.0, BUN 22, creatinine 0.72. EKG tracing personally reviewed by me shows normal sinus rhythm, some Q-waves in inferior leads. Chest x-ray film personally reviewed by me shows cardiomegaly, possibly a hiatal hernia, some chronic basilar findings. ASSESSMENT: 1. Acute chronic obstructive pulmonary disease exacerbation in an ex-smoker. 2. Chronic hypoxic respiratory failure with underlying chronic obstructive pulmonary disease. 3. Small-cell lung cancer, undergoing chemo and radiation treatment. 4. Two episodes of syncope at home. No more details available. Will put the patient on telemetry to look for any arrhythmias. Will also look for any metastatic disease. There are no focal manifestations. 5. 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 6. Infrarenal aortic aneurysm 4 cm. 7. Colonic diverticulosis, asymptomatic. 8. Gastroesophageal reflux disease. 9. Hyperlipidemia. 10.Essential hypertension. 11.Primary osteoarthritis in multiple joints. 12.Benign prostatic hypertrophy. 13.Restless legs syndrome. 14.Peripheral neuropathy; could be from underlying malignancy. 15.Chronic hemorrhoids. PLAN: At this point, patient is started on inhaled bronchodilators, IV and inhaled steroids. Home medications are resumed. Will check patient's orthostatics. Supplement oxygen. Consultation is made to Dr. Morales and Dr. Nnamdi Grace from Pulmonary. Care was discussed with the patient. Questions were answered. Will also do an MRI of the brain with and without contrast to rule out any metastatic disease. MMODL / IJN: [id number] /
[2018-11-08] MEDS: methylPREDNISolone SOD SUCCI 40 MG/ML 1 ML VIAL IV SCH (23:17)
[2018-11-09] MEDS: IPRATROPIUM-ALBUTEROL 3 ML NEB INHALATION SCH ×6 (00:38→21:01)
[2018-11-09] MEDS: LEVOTHYROXINE 75 MCG TAB PO SCH (05:44)
[2018-11-09] MEDS: methylPREDNISolone SOD SUCCI 40 MG/ML 1 ML VIAL IV SCH ×3 (08:01→21:25)
[2018-11-09] MEDS: PANTOPRAZOLE 40 MG TABLET PO SCH (08:01)
[2018-11-09] MEDS: LISINOPRIL 20 MG TAB PO SCH (08:01)
[2018-11-09] MEDS: TAMSULOSIN 0.4 MG CAP.ER.24H PO SCH (08:01)
[2018-11-09] MEDS: FLUoxetine HCL 20 MG CAP PO SCH (08:01)
[2018-11-09] MEDS: ATORVASTATIN 80 MG TAB PO SCH (08:01)
[2018-11-09] MEDS: BUDESONIDE 1 MG/2 ML NEBU INHALATION SCH ×2 (08:27→21:01)
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
--- NOTE | 2018-11-09 15:16 | MR ---
EXAMINATION TYPE: MR brain wo/w con DATE OF EXAM: 11/09/2018 COMPARISON: 05/11/2018 HISTORY: syncope-r/o mets; lung ca CONTRAST: Performed utilizing 7.5 mL intravenous Gadavist gadolinium contrast. TECHNIQUE: Multiplanar, multiecho imaging on a 3.0 Brenda magnet is performed through the brain. Stud y is performed within 24 hours of arrival to the hospital. The craniovertebral junction is normal. The pituitary is normal. Diffusion-weighted imaging is performed. No abnormal hyperintensity is present to suggest an acute i ntracranial infarct or acute ischemic change. Periventricular white matter hyperintensity is present on T2 and inversion recovery weighted sequence s, likely on the basis of chronic white matter changes. These are becoming confluence. Findings are s imilar to the 05/11/2018 exam. No abnormal enhancement is evident. Ventricles and sulci are prominent for the patient age. Retention cyst may be within the posterior left maxillary sinus. IMPRESSIONS: 1. Atrophy with chronic appearing stable patchy periventricular white matter changes. 2. No suspicious changes to suggest metastatic disease.
--- NOTE | 2018-11-09 17:12 | P.CONS ---
History of Present Illness - Reason for Consult Consult date: 11/09/18 lung cancer Requesting physician: Pedro Lorenz - Chief Complaint ELGIN - History of Present Illness Mr. Coleman is a very pleasant male pt of Dr. Ann and PCP Dr. Gutierrez with other complex medical conditions including COPD secondary to a 55 year pack history of smoking, hypothyroidism, hyperlipidemia and BPH who was referred initially to Hem Onc for anemia. 07/2016 Hgb started to show a slight trend down, renal function and CMP were WNL. Dec 2016 pt had his 1st hospitalization for BRBPR, and he had 2 more visits for same on 03/07 and 04/25. Had colon/EGD with Dr. Park on 02/22 with mild gastritis, sigmoid diverticulosis and low grade internal hemorrhoids. He was seen by Dr. Granger during his 04/25 hospital stay, she did not plan on repeating endoscopy at that time and placed pt on oral iron BID and his daily baby asa was discontinued. After that pt had trouble regaining his strength and stamina, 05/25/[address] [facility] with syncopal episode, CTA was negative for PE, but revealed MICKEY masses, largest was 5.1 cm with upper mediastinal direct involvement. Dedicated CT chest revealed left hilar lymphadenopathy. CT-guided biopsy on 05/09/18, path revealed small cell carcinoma, staging PET 05/20/18 revealed FDG-active disease in chest, no extra thoracic disease, MRI of head was negative He was started on carbo/RAG GRADER in May 2018. Treatment f/u CT after 3 cycles showed a partial response. He completed 6 cycles in September and was to start on consolidative, small field radiation. Pt admitted with progressive SOB and ELGIN, cough, denied fever, he has noted some difficulty swallowing recently, no hemoptysis, he is having trouble expectorating, no nausea, vomiting, chest pain, abd pain. C/O mild constipation and he is having difficulty urinating. He has required straight cath. He has been seen by Pulmonary and being treated for respiratory infection. MRI of the rain was negative for mets Review of Systems 14 point ROS is negative except as stated in HPI Past Medical History Past Medical History: Cancer, COPD, Eye Disorder, GERD/Reflux, GI Bleed, Hyperlipidemia, Hypertension, Osteoarthritis (OA), Prostate Disorder, Thyroid Disorder Additional Past Medical History / Comment(s): Lung Cancer;COPD,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; peripheral neuropathy, restless leg syndrome, chronic hypoxic respiratory failure with an oxygen at 2 L/m nasal cannula, glaucoma, hemorrhoids, BPH, diverticulosis, hiatal hernia, Garcia's esophagus, chronic gastritis, degenerative arthritis, previous SVT that was ablated History of Any Multi-Drug Resistant Organisms: None Reported Past Surgical History: Adenoidectomy, Cardiac Ablation, Cholecystectomy, Orthopedic Surgery, Tonsillectomy Additional Past Surgical History / Comment(s): cardiac ablation for SVT, mole removed from neck, R elbow surgery (tennis elbow), colonoscopy, circumcism, Vasectomy, R testicle surgery for infection, bilateral carpal tunnel releases. Past Anesthesia/Blood Transfusion Reactions: Family History of Problems w/ Anesthesia Additional Past Anesthesia/Blood Transfusion Reaction / Comm: DAUGHTER TAKES LONG TIME TO AWAKEN. Past Psychological History: Anxiety, Depression Additional Psychological History / Comment(s): pt's pased away 2005.Pt LIVES WITH daughter connor AND OTHER FAMILY MEMBERS HELP OUT WELL. lives in one level home that has 4 steps to enter. has home . uses 4 wheeled walker w/ seat at times. Smoking Status: Former smoker Past Alcohol Use History: None Reported Additional Past Alcohol Use History / Comment(s): Pt states he started smoking at age 16 (1957)and quit . was a 1 ppd smoker. admits to drinking for some period of time in his past-quit heavy drinking 10 years ago ; none now Past Drug Use History: None Reported - Past Family History Father Family Medical History: No Reported History Additional Family Medical History / Comment(s): Father was healthy and at age 84 yrs. Mother Family Medical History: Cancer Additional Family Medical History / Comment(s): Mother was healthy and in her 70's Brother(s) History Unknown: Yes Sister(s) Family Medical History: Osteoarthritis (OA) Medications and Allergies Home Medications Medication Instructions Recorded Confirmed Type ALPRAZolam [Xanax] 0.25 mg PO TID PRN 12/03/15 11/08/18 History Atorvastatin [Lipitor] 80 mg PO DAILY 12/03/15 11/08/18 History Ubidecarenone [Co Q-10] 200 mg PO DAILY 12/03/15 11/08/18 History Levothyroxine Sodium [Levoxyl] 150 mcg PO DAILY 10/08/16 11/08/18 History FLUoxetine HCL [PROzac] 40 mg PO DAILY 02/22/17 11/08/18 History Fluticasone/Vilanterol [Breo 1 inhalation INHALATION RT-DAILY 04/25/17 11/08/18 History Ellipta 200-25 Mcg INH] Hydrochlorothiazide [Hydrodiuril] 12.5 mg PO DAILY 04/25/17 11/08/18 History Multivit-Min/FA/Lycopen/Lutein 1 tab PO DAILY 11/28/17 11/08/18 History [Centrum Silver Tablet] Pantoprazole [Protonix] 40 mg PO DAILY 11/28/17 11/08/18 History Albuterol Nebulized [Ventolin 2.5 mg INHALATION RT-TID 05/07/18 11/08/18 History Nebulized] QUEtiapine FUMARATE [SEROquel] 25 mg PO HS 05/07/18 11/08/18 History Ramipril 10 mg PO DAILY 05/07/18 11/08/18 History Tamsulosin HCl [Flomax] 0.4 mg PO DAILY 05/07/18 11/08/18 History Tiotropium 18 Mcg/Puff [Spiriva] 1 cap INHALATION RT-DAILY 05/07/18 11/08/18 History predniSONE 10 mg PO DAILY 05/07/18 11/08/18 History Pramipexole [Mirapex] 0.5 mg PO TID PRN 11/08/18 11/08/18 History Allergies Allergy/AdvReac Type Severity Reaction Status Date / Time Pepperoni AdvReac Nausea & Uncoded 11/08/18 11:14 Vomiting Physical Exam Vitals: Vital Signs Temp Pulse Pulse Resp BP Pulse Ox 11/09/18 11:51 100 11/09/18 11:43 100 11/09/18 11:20 98.6 F 109 H 20 132/66 94 L 11/09/18 08:37 100 11/09/18 08:25 96 11/09/18 08:00 110 H 116/61 11/09/18 05:17 98.2 F 57 L 20 99/60 93 L 11/09/18 00:49 100 11/09/18 00:40 101 H 11/08/18 21:30 98 F 117 H 20 138/79 93 L 11/08/18 20:59 101 H 11/08/18 20:50 99 11/08/18 17:51 103 H 11/08/18 17:42 101 H 92 L 11/08/18 17:33 98.1 F 99 22 131/81 94 L 11/08/18 16:58 97.9 F 99 18 123/75 95 Intake and Output 11/08/18 11/09/18 11/09/18 22:59 06:59 14:59 Output Total 800 250 Balance -800 -250 Output: Urine 800 Post Void Residual 250 Other: Voiding Method Toilet Toilet Urinal Urinal # Voids 1 Weight 81.64 kg - Constitutional General appearance: cooperative, no acute distress, obese - EENT Eyes: anicteric sclerae, EOMI ENT: hearing grossly normal, normal oropharynx - Neck Neck: no lymphadenopathy - Respiratory Respiratory: bilateral: CTA - Cardiovascular Heart sounds: normal: S1, S2 Abnormal Heart Sounds: systolic murmur leg Peripheral Edema: bilateral: None - Gastrointestinal General gastrointestinal: no absent bowel sounds, no decreased bowel sounds, no distended, no hepatomegaly, no hyperactive bowel sounds, normal bowel sounds, no organomegaly, no rigid, no scaphoid, soft, no splenomegaly, no tenderness, no umbilical hernia, no ventral hernia - Integumentary Integumentary: normal - Neurologic Neurologic: CNII-XII intact - Musculoskeletal Musculoskeletal: generalized weakness, strength equal bilaterally - Psychiatric Psychiatric: A&O x's 3, appropriate affect Results CBC & Chem 7: 11/08/18 12:00 11/08/18 12:00 Chest x-ray: report reviewed MRI - head: report reviewed Assessment and Plan (1) Small cell lung cancer Narrative/Plan: Pt completed chemo for limited stage small cell lung cancer in Sep. I think XRT was completed-will double check, as pt sometimes has trouble remembering events. There was recent approval for maintenance drug in limited stage SCLC after treatment. Pt may be considered for the same. He will f/u with Dr. Ann for that plan of care. Current Visit: Yes Status: Chronic Priority: Medium Code(s): C34.90 - MALIGNANT NEOPLASM OF UNSP PART OF UNSP BRONCHUS OR LUNG SNOMED Code(s): 009842145 (2) Acute exacerbation of chronic obstructive pulmonary disease (COPD) Narrative/Plan: Pt has been seen and evaluated by Pulmonary and is being treated. His symptoms were improved already. Current Visit: Yes Status: Acute Priority: High Code(s): J44.1 - CHRONIC OBSTRUCTIVE PULMONARY DISEASE W (ACUTE) EXACERBATION SNOMED Code(s): 671014183 Plan: Pt has mild WBC elevation, all neutrophils, secondary to COPD exacerbation. No chemo for over a month.
--- NOTE | 2018-11-09 18:46 | PN ---
PROGRESS NOTE DATE OF SERVICE: 11/09/2018. PRESENTING COMPLAINT: Short of breath. INTERVAL HISTORY: This patient has small-cell lung cancer. He presented with acute COPD exacerbation. Breathing is better today. MRI of the brain did not show any metastasis. Patient did tolerate some diet. Patient was seen by Pulmonary and Oncology. REVIEW OF SYSTEMS: Done for constitutional, cardiovascular, GI, pulmonary; relevant findings as above. CURRENT MEDICATIONS: Reviewed. They include DuoNeb, IV Solu-Medrol. PHYSICAL EXAMINATION: Temperature 98.6, pulse 100, respiration 20, blood pressure 132/66, pulse ox 94% on 3 L. GENERAL APPEARANCE: Sitting at the edge of the bed. Breathing better. EYES: Pupils equal. Conjunctivae normal. NECK: JVD not raised. Mass not palpable. RESPIRATORY: Effort increased. LUNGS: Decreased breath sounds. Prolonged expiration with less wheezing. CARDIOVASCULAR: First and second sounds normal. No edema. ABDOMEN: Soft, non-tender. Liver and spleen not palpable. PSYCHIATRY: Patient is able to answer simple questions. INVESTIGATIONS: No blood work from today. MRI of the brain negative for any metastasis. ASSESSMENT: 1. Acute chronic obstructive pulmonary disease exacerbation in an ex-smoker. 2. Chronic hypoxic respiratory failure with some underlying chronic obstructive pulmonary disease. 3. Small-cell lung cancer. Undergoing chemo and radiation treatment. 4. 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 5. Infrarenal aortic aneurysm 4 cm. 6. Colonic diverticulosis, asymptomatic. 7. Gastroesophageal reflux disease. 8. Hyperlipidemia. 9. Essential hypertension. 10.Primary osteoarthritis of multiple joints. 11.Benign prostatic hypertrophy. 12.Restless legs syndrome. 13.Peripheral neuropathy, probably from underlying malignancy. 14.Chronic hemorrhoids. PLAN: Continue current medication and treatment plan, bronchodilators, steroids. Care was discussed with the patient. Will follow. MMODL / IJN: [id number] /
[2018-11-09] MEDS: FORMOTEROL FUMARATE 20 MCG/2 ML NEBU INHALATION SCH (21:01)
[2018-11-09] MEDS: PRAMIPEXOLE 0.5 MG TAB PO PRN (21:25)
[2018-11-09] MEDS: QUEtiapine 25 MG TAB PO SCH (21:25)
[2018-11-10] MEDS: IPRATROPIUM-ALBUTEROL 3 ML NEB INHALATION SCH ×5 (00:12→16:03)
[2018-11-10] MEDS: LEVOTHYROXINE 75 MCG TAB PO SCH (05:54)
[2018-11-10] MEDS: FLUoxetine HCL 20 MG CAP PO SCH (08:18)
[2018-11-10] MEDS: ATORVASTATIN 80 MG TAB PO SCH (08:18)
[2018-11-10] MEDS: LISINOPRIL 20 MG TAB PO SCH (08:18)
[2018-11-10] MEDS: PANTOPRAZOLE 40 MG TABLET PO SCH (08:18)
[2018-11-10] MEDS: TAMSULOSIN 0.4 MG CAP.ER.24H PO SCH (08:18)
[2018-11-10] MEDS: methylPREDNISolone SOD SUCCI 40 MG/ML 1 ML VIAL IV SCH (08:18)
[2018-11-10] MEDS: FORMOTEROL FUMARATE 20 MCG/2 ML NEBU INHALATION SCH (08:46)
[2018-11-10] MEDS: BUDESONIDE 1 MG/2 ML NEBU INHALATION SCH (08:46)
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
[2018-11-10 12:19] VITALS: BP 135/59; RESP 18; TEMP 97.7
[2018-11-10] MEDS: IPRATROPIUM-ALBUTEROL 3 ML NEB INHALATION PRN (13:42)
[2018-11-10 14:16] LABS: Basophils % (A) 0 %; Eosinophils % (A) 0 %; HCT 37.7 % (39.0-53.0); HGB 11.8 gm/dL (13.0-17.5); Lymphocytes # (A) 0.2 k/uL (1.0-4.8); Lymphocytes % (A) 2 %; MCH 30.3 pg (25.0-35.0); MCHC 31.3 g/dL (31.0-37.0); MCV 96.9 fL (80.0-100.0); Mean Platelet Volume 7.2; Monocytes # (A) 0.2 k/uL (0-1.0); Monocytes % (A) 3 %; Neutrophils # (A) 6.9 k/uL (1.3-7.7); Neutrophils % (A) 95 %; Platelet Count 171 k/uL (150-450); RBC 3.89 m/uL (4.30-5.90); WBC 7.3 k/uL (3.8-10.6)
[2018-11-10 14:41] LABS: ALT 29 U/L (21-72); AST 28 U/L (17-59); Albumin 3.8 g/dL (3.5-5.0); Alkaline Phosphatase 81 U/L (38-126); Anion Gap 9 mmol/L; Blood Urea Nitrogen 28 mg/dL (9-20); Calcium 9.3 mg/dL (8.4-10.2); Carbon Dioxide 27 mmol/L (22-30); Chloride 97 mmol/L (98-107); Glucose 170 mg/dL (74-99); Potassium 4.1 mmol/L (3.5-5.1); Sodium 133 mmol/L (137-145); Total Protein 6.1 g/dL (6.3-8.2)
[2018-11-10] MEDS: PRAMIPEXOLE 0.5 MG TAB PO PRN (15:50)
[2018-11-10 16:18] VITALS: PULSE 86
--- NOTE | 2018-11-10 17:50 | P.GSCN ---
History of Present Illness Consult date: 11/10/18 Reason for Consult: Urinary retention Requesting physician: Jenny Griffith History of present illness: Th patient is a 78-year-old white male patient who is medical history includes oxygen dependent COPD. He was diagnosed with small cell lung cancer in 2018, for which he has completed chemotherapy and is receiving radiation treatments. has medical history of advanced COPD, oxygen dependent, small cell lung carcinoma, has completed chemotherapy, and 6 radiation treatments. He has recently experienced shortness of breath and was found unresponsive. He was admitted for these reasons. He required straight catheterization yesterday for urinary retention, but today has been able to void without difficulty. Post void residuals today have been approximately 160 mL. His urologic history is significant for a TURP in December 2016, after he failed BPH medical therapy. Review of Systems - Constitutional Reports fever - Respiratory Reports dyspnea - Genitourinary Reports urinary retention, Denies dysuria, Denies hematuria Past Medical History Past Medical History: Cancer, COPD, Eye Disorder, GERD/Reflux, GI Bleed, Hyperlipidemia, Hypertension, Osteoarthritis (OA), Prostate Disorder, Thyroid Disorder Additional Past Medical History / Comment(s): Lung Cancer;COPD,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; peripheral neuropathy, restless leg syndrome, chronic hypoxic respiratory failure with an oxygen at 2 L/m nasal cannula, glaucoma, hemorrhoids, BPH, diverticulosis, hiatal hernia, Garcia's esophagus, chronic gastritis, degenerative arthritis, previous SVT that was ablated History of Any Multi-Drug Resistant Organisms: None Reported Past Surgical History: Adenoidectomy, Cardiac Ablation, Cholecystectomy, Orthopedic Surgery, Tonsillectomy Additional Past Surgical History / Comment(s): cardiac ablation for SVT, mole removed from neck, R elbow surgery (tennis elbow), colonoscopy, circumcism, Vasectomy, R testicle surgery for infection, bilateral carpal tunnel releases. Past Anesthesia/Blood Transfusion Reactions: Family History of Problems w/ Anesthesia Additional Past Anesthesia/Blood Transfusion Reaction / Comm: DAUGHTER TAKES LONG TIME TO AWAKEN. Past Psychological History: Anxiety, Depression Additional Psychological History / Comment(s): pt's pased away 2005.Pt LIVES WITH daughter connor AND OTHER FAMILY MEMBERS HELP OUT WELL. lives in one level home that has 4 steps to enter. has home . uses 4 wheeled walker w/ seat at times. Smoking Status: Former smoker Past Alcohol Use History: None Reported Additional Past Alcohol Use History / Comment(s): Pt states he started smoking at age 16 (1957)and quit . was a 1 ppd smoker. admits to drinking for some period of time in his past-quit heavy drinking 10 years ago ; none now Past Drug Use History: None Reported - Past Family History Father Family Medical History: No Reported History Additional Family Medical History / Comment(s): Father was healthy and at age 84 yrs. Mother Family Medical History: Cancer Additional Family Medical History / Comment(s): Mother was healthy and in her 70's Brother(s) History Unknown: Yes Sister(s) Family Medical History: Osteoarthritis (OA) Medications and Allergies Home Medications Medication Instructions Recorded Confirmed Type ALPRAZolam [Xanax] 0.25 mg PO TID PRN 12/03/15 11/08/18 History Atorvastatin [Lipitor] 80 mg PO DAILY 12/03/15 11/08/18 History Ubidecarenone [Co Q-10] 200 mg PO DAILY 12/03/15 11/08/18 History Levothyroxine Sodium [Levoxyl] 150 mcg PO DAILY 10/08/16 11/08/18 History FLUoxetine HCL [PROzac] 40 mg PO DAILY 02/22/17 11/08/18 History Fluticasone/Vilanterol [Breo 1 inhalation INHALATION RT-DAILY 04/25/17 11/08/18 History Ellipta 200-25 Mcg INH] Hydrochlorothiazide [Hydrodiuril] 12.5 mg PO DAILY 04/25/17 11/08/18 History Multivit-Min/FA/Lycopen/Lutein 1 tab PO DAILY 11/28/17 11/08/18 History [Centrum Silver Tablet] Pantoprazole [Protonix] 40 mg PO DAILY 11/28/17 11/08/18 History QUEtiapine FUMARATE [SEROquel] 25 mg PO HS 05/07/18 11/08/18 History Ramipril 10 mg PO DAILY 05/07/18 11/08/18 History Tamsulosin HCl [Flomax] 0.4 mg PO DAILY 05/07/18 11/08/18 History Pramipexole [Mirapex] 0.5 mg PO TID PRN 11/08/18 11/08/18 History Albuterol Nebulized [Ventolin 2.5 mg INHALATION RT-TID PRN #0 11/10/18 11/08/18 Rx Nebulized] Ipratropium-Albuterol Nebulize 3 ml INHALATION TID #90 ampul.neb 11/10/18 Rx [Duoneb 0.5 mg-3 mg/3 ml Soln] predniSONE 10 mg PO DAILY #30 tab 11/10/18 Rx Allergies Allergy/AdvReac Type Severity Reaction Status Date / Time Pepperoni AdvReac Nausea & Uncoded 11/08/18 11:14 Vomiting Surgical - Exam Vital Signs Temp Pulse Resp BP Pulse Ox 98.1 F 106 H 18 111/68 93 L 11/08/18 11:14 11/08/18 11:14 11/08/18 11:14 11/08/18 11:14 11/08/18 11:14 - General well developed, well nourished, no distress - Abdomen Abdomen: soft, non tender, no guarding, no rigid, no rebound - Psychiatric oriented to time, oriented to person, oriented to place, speech is normal, memory intact Results - Labs 11/10/18 14:07 11/10/18 14:07 Abnormal Lab Results - Last 24 Hours (Table) 11/10/18 11/10/18 Range/Units 14:07 14:07 RBC 3.89 L (4.30-5.90) m/uL Hgb 11.8 L (13.0-17.5) gm/dL Hct 37.7 L (39.0-53.0) % RDW 16.0 H (11.5-15.5) % Lymphocytes # 0.2 L (1.0-4.8) k/uL Sodium 133 L (137-145) mmol/L Chloride 97 L (98-107) mmol/L BUN 28 H (9-20) mg/dL Glucose 170 H (74-99) mg/dL Total Protein 6.1 L (6.3-8.2) g/dL Microbiology - Last 24 Hours (Table) 11/08/18 12:00 Blood Culture - Preliminary Blood No Growth after 48 hours Diabetes panel 11/10/18 Range/Units 14:07 Sodium 133 L (137-145) mmol/L Potassium 4.1 (3.5-5.1) mmol/L Chloride 97 L (98-107) mmol/L Carbon Dioxide 27 (22-30) mmol/L BUN 28 H (9-20) mg/dL Creatinine 0.70 (0.66-1.25) mg/dL Glucose 170 H (74-99) mg/dL Calcium 9.3 (8.4-10.2) mg/dL AST 28 (17-59) U/L ALT 29 (21-72) U/L Alkaline Phosphatase 81 (38-126) U/L Total Protein 6.1 L (6.3-8.2) g/dL Albumin 3.8 (3.5-5.0) g/dL Calcium panel 11/10/18 Range/Units 14:07 Calcium 9.3 (8.4-10.2) mg/dL Albumin 3.8 (3.5-5.0) g/dL Pituitary panel 11/10/18 Range/Units 14:07 Sodium 133 L (137-145) mmol/L Potassium 4.1 (3.5-5.1) mmol/L Chloride 97 L (98-107) mmol/L Carbon Dioxide 27 (22-30) mmol/L BUN 28 H (9-20) mg/dL Creatinine 0.70 (0.66-1.25) mg/dL Glucose 170 H (74-99) mg/dL Calcium 9.3 (8.4-10.2) mg/dL Adrenal panel 11/10/18 Range/Units 14:07 Sodium 133 L (137-145) mmol/L Potassium 4.1 (3.5-5.1) mmol/L Chloride 97 L (98-107) mmol/L Carbon Dioxide 27 (22-30) mmol/L BUN 28 H (9-20) mg/dL Creatinine 0.70 (0.66-1.25) mg/dL Glucose 170 H (74-99) mg/dL Calcium 9.3 (8.4-10.2) mg/dL Total Bilirubin 1.0 (0.2-1.3) mg/dL AST 28 (17-59) U/L ALT 29 (21-72) U/L Alkaline Phosphatase 81 (38-126) U/L Total Protein 6.1 L (6.3-8.2) g/dL Albumin 3.8 (3.5-5.0) g/dL Assessment and Plan (1) Acute urinary retention Current Visit: No Status: Acute Code(s): R33.8 - OTHER RETENTION OF URINE SNOMED Code(s): 446010930 Plan: The patient is a 78-year-old male with a history of BPH. He failed medical therapy with tamsulosin and finasteride, and thus underwent a TURP in December 2016. He experienced difficulty voiding during this hospitalization, requiring straight catheterization. However, he has been able to void today without difficulty, and bladder emptying is adequate. He is being discharged home, and I have suggested he follow-up with me as an outpatient if he experiences voiding difficulty. Time with Patient: Less than 30
--- NOTE | 2018-11-11 11:12 | DS ---
DISCHARGE SUMMARY DATE OF ADMISSION: 11/08/2018 DATE OF DISCHARGE: 11/10/2018 FINAL DIAGNOSES: 1. Acute chronic obstructive pulmonary disease exacerbation in an ex-smoker. 2. Chronic hypoxic respiratory failure with some underlying chronic obstructive pulmonary disease. 3. Small-cell lung cancer undergoing chemo and radiation treatment. 4. 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 5. Infrarenal aortic aneurysm 4 cm. 6. Colonic diverticulosis, asymptomatic. 7. Gastroesophageal reflux disease. 8. Hyperlipidemia. 9. Essential hypertension. 10.Primary osteoarthritis of multiple joints. 11.Benign prostatic hypertrophy. 12.Restless legs syndrome. 13.Peripheral neuropathy, probably from underlying malignancy. 14.Chronic hemorrhoids. HOSPITAL COURSE: This patient has got small-cell lung cancer, undergoing chemo and radiation treatment, presented with short of breath, found to have COPD exacerbation. Responded well to bronchodilators, steroids, doing much better today, spoke to the patient and his daughter. Patient nearly back to his baseline, eating well, walking much better. Patient also cleared by Dr. Morales from Pulmonary. PHYSICAL EXAMINATION: Temperature 97.7, pulse 100, respiratory rate 18, blood pressure 135/59, pulse ox 97% on 3 L. Lungs decreased breath sounds. PSYCH: Answering questions. INVESTIGATIONS: White count 7.3, hemoglobin 11.8, potassium 4.1, BUN 28, creatinine 0.70. Discussion and discharge planning more than 35 minutes. DISCHARGE MEDICATIONS: 1. Xanax 0.25 p.o. t.i.d. p.r.n. 2. Lipitor 80 mg p.o. daily. 3. COQ10 two hundred mg p.o. daily. 4. Levothyroxine 150 mcg a day. 5. Prozac 40 mg a day. 6. Breo-Ellipta 1 puff daily. 7. Hydrochlorothiazide 12.5 p.o. daily. 8. Centrum Silver 1 tablet p.o. daily. 9. Protonix 40 mg daily. 10.Seroquel 25 mg q.h.s. .. 11.Ramipril 10 mg p.o. daily. 12.Flomax 0.4 mg p.o. daily. 13.Mirapex 0.5 mg p.o. t.i.d. p.r.n. 14.Ventolin 2.5 t.i.d. p.r.n. 15.DuoNeb t.i.d. 16.Prednisone taper. FOLLOWUP: Follow up with Dr. Ortega on 11/17/2018; follow up with Dr. Mendenhall on 11/16/2018; Dr. Ann 12/07/2018. MMODL / IJN: [id number] /
== END 2018-11-10 18:30 | disposition home or self-care (01) | DRG 191 ==
LOC: EC 11:06 → 3NMEDONC 14:02
PROVIDERS: ADMIT Hospitalist; ATTEND Hospitalist
DX: J44.1 Chronic obstructive pulmonary disease with (acute) exacerbation (principal); C34.90 Malignant neoplasm of unspecified part of unspecified bronchus or lung; J96.11 Chronic respiratory failure with hypoxia; E03.9 Hypothyroidism, unspecified; E78.5 Hyperlipidemia, unspecified; G25.81 Restless legs syndrome; G62.9 Polyneuropathy, unspecified; H40.9 Unspecified glaucoma; I10 Essential (primary) hypertension; I71.4 Abdominal aortic aneurysm, without rupture; K21.9 Gastro-esophageal reflux disease without esophagitis; K22.70 Barrett's esophagus without dysplasia; K29.50 Unspecified chronic gastritis without bleeding; K44.9 Diaphragmatic hernia without obstruction or gangrene; K57.30 Diverticulosis of large intestine without perforation or abscess without bleeding; K59.00 Constipation, unspecified; K64.9 Unspecified hemorrhoids; M15.9 Polyosteoarthritis, unspecified; N40.1 Benign prostatic hyperplasia with lower urinary tract symptoms; R33.8 Other retention of urine; Z79.890 Hormone replacement therapy; Z79.899 Other long term (current) drug therapy; Z87.891 Personal history of nicotine dependence; Z92.21 Personal history of antineoplastic chemotherapy; Z99.81 Dependence on supplemental oxygen; Z82.61 Family history of arthritis; R55 Syncope and collapse; Z90.49 Acquired absence of other specified parts of digestive tract; Z90.79 Acquired absence of other genital organ(s); I67.1 Cerebral aneurysm, nonruptured; Z87.19 Personal history of other diseases of the digestive system
CPT/HCPCS: 36415; 70553; 71046; 80053; 82550; 82553; 83735; 83880; 84484; 85025; 85610; 85730; 87040; 93005; 94640; 94760; 96361; 96374; 99291

== ENCOUNTER 2018-11-11 20:48 | Emergency (ER) | payer MEDICARE ==
[2018-11-11 21:40] LABS: Basophils % (A) 0 %; Eosinophils # (A) 0.1 k/uL (0-0.7); Eosinophils % (A) 1 %; HCT 38.1 % (39.0-53.0); HGB 12.7 gm/dL (13.0-17.5); Lymphocytes # (A) 0.2 k/uL (1.0-4.8); Lymphocytes % (A) 3 %; MCH 31.6 pg (25.0-35.0); MCHC 33.4 g/dL (31.0-37.0); MCV 94.7 fL (80.0-100.0); Mean Platelet Volume 6.9; Monocytes # (A) 0.4 k/uL (0-1.0); Monocytes % (A) 6 %; Neutrophils # (A) 6.2 k/uL (1.3-7.7); Neutrophils % (A) 89 %; Platelet Count 180 k/uL (150-450); RBC 4.02 m/uL (4.30-5.90); RDW 15.6 % (11.5-15.5)
[2018-11-11 21:51] LABS: ALT 38 U/L (21-72); AST 31 U/L (17-59); Albumin 3.6 g/dL (3.5-5.0); Alkaline Phosphatase 96 U/L (38-126); Anion Gap 6 mmol/L; Blood Urea Nitrogen 28 mg/dL (9-20); Calcium 8.7 mg/dL (8.4-10.2); Carbon Dioxide 29 mmol/L (22-30); Chloride 98 mmol/L (98-107); Glucose 139 mg/dL (74-99); Potassium 4.3 mmol/L (3.5-5.1); Sodium 133 mmol/L (137-145); Total Protein 6.1 g/dL (6.3-8.2)
--- NOTE | 2018-11-11 21:56 | ED ---
Seizure HPI - General Chief Complaint: Seizure Stated Complaint: neuro symptoms Time Seen by Provider: 11/11/18 21:28 Source: patient, family Mode of arrival: EMS Limitations: language barrier - History of Present Illness Initial Comments: This patient is a 78-year-old man who comes emergency department to be evaluated for possible seizure. The patient had been released from the hospital yesterday after an admission for COPD exacerbation. The patient was at home this evening and then reportedly had an episode which he was thrashing his arms and his head was shaking. The patient does not recall the episode, which was witnessed by one of his daughters who is not currently at the bedside. When I interview the patient, he states that he is feeling pretty well at the moment. He denies pain. He denies dyspnea. MD Complaint: possible seizure Onset/Timin -: hour(s) Description of Episode: tonic-clonic movement -: second(s) Witnessed: yes - by bystander Seizure History: none Place: home Possible Precipitating Event: none Associated Symptoms: denies other symptoms - Related Data Home Medications Medication Instructions Recorded Confirmed ALPRAZolam [Xanax] 0.25 mg PO TID PRN 12/03/15 11/11/18 Atorvastatin [Lipitor] 80 mg PO DAILY 12/03/15 11/11/18 Ubidecarenone [Co Q-10] 200 mg PO DAILY 12/03/15 11/11/18 Levothyroxine Sodium [Levoxyl] 150 mcg PO DAILY 10/08/16 11/11/18 FLUoxetine HCL [PROzac] 40 mg PO DAILY 02/22/17 11/11/18 Fluticasone/Vilanterol [Breo 1 inhalation INHALATION RT-DAILY 04/25/17 11/11/18 Ellipta 200-25 Mcg INH] Hydrochlorothiazide [Hydrodiuril] 12.5 mg PO DAILY 04/25/17 11/11/18 Multivit-Min/FA/Lycopen/Lutein 1 tab PO DAILY 11/28/17 11/11/18 [Centrum Silver Tablet] Pantoprazole [Protonix] 40 mg PO DAILY 11/28/17 11/11/18 QUEtiapine FUMARATE [SEROquel] 25 mg PO HS 05/07/18 11/11/18 Ramipril 10 mg PO DAILY 05/07/18 11/11/18 Tamsulosin HCl [Flomax] 0.4 mg PO DAILY 05/07/18 11/11/18 Pramipexole [Mirapex] 0.5 mg PO TID PRN 11/08/18 11/11/18 Previous Rx's Medication Instructions Recorded Albuterol Nebulized [Ventolin 2.5 mg INHALATION RT-TID PRN #0 11/10/18 Nebulized] Ipratropium-Albuterol Nebulize 3 ml INHALATION TID #90 ampul.neb 11/10/18 [Duoneb 0.5 mg-3 mg/3 ml Soln] predniSONE 10 mg PO DAILY #30 tab 11/10/18 predniSONE 20 mg PO BID #8 tab 11/12/18 Allergies Allergy/AdvReac Type Severity Reaction Status Date / Time [place] AdvReac Nausea & Uncoded 11/11/18 20:58 Vomiting Review of Systems ROS Statement: Those systems with pertinent positive or pertinent negative responses have been documented in the HPI. ROS Other: All systems not noted in ROS Statement are negative. Constitutional: Denies: fever, chills, weakness Eyes: Denies: vision change Respiratory: Denies: cough, dyspnea Cardiovascular: Denies: chest pain, palpitations, orthopnea, edema Gastrointestinal: Denies: abdominal pain, nausea, vomiting, diarrhea Genitourinary: Denies: dysuria Musculoskeletal: Denies: back pain Skin: Denies: rash Neurological: Denies: headache, weakness, numbness, paresthesias, confusion Past Medical History Past Medical History: Cancer, COPD, Eye Disorder, GERD/Reflux, GI Bleed, Hyperlipidemia, Hypertension, Osteoarthritis (OA), Prostate Disorder, Thyroid Disorder Additional Past Medical History / Comment(s): Lung Cancer;COPD,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; peripheral neuropathy, restless leg syndrome, chronic hypoxic respiratory failure with an oxygen at 2 L/m nasal cannula, glaucoma, hemorrhoids, BPH, diverticulosis, hiatal hernia, Garcia's esophagus, chronic gastritis, degenerative arthritis, previous SVT that was ablated History of Any Multi-Drug Resistant Organisms: None Reported Past Surgical History: Adenoidectomy, Cardiac Ablation, Cholecystectomy, Orthopedic Surgery, Tonsillectomy Additional Past Surgical History / Comment(s): cardiac ablation for SVT, mole removed from neck, R elbow surgery (tennis elbow), colonoscopy, circumcism, Vasectomy, R testicle surgery for infection, bilateral carpal tunnel releases. Past Anesthesia/Blood Transfusion Reactions: Family History of Problems w/ Anesthesia Additional Past Anesthesia/Blood Transfusion Reaction / Comment(s): DAUGHTER TAKES LONG TIME TO AWAKEN. Past Psychological History: Anxiety, Depression Smoking Status: Former smoker Past Alcohol Use History: None Reported Past Drug Use History: None Reported - Past Family History Father Family Medical History: No Reported History Additional Family Medical History / Comment(s): Father was healthy and at age 84 yrs. Mother Family Medical History: Cancer Additional Family Medical History / Comment(s): Mother was healthy and in her 70's Brother(s) History Unknown: Yes Sister(s) Family Medical History: Osteoarthritis (OA) General Exam Limitations: language barrier General appearance: alert, in no apparent distress Head exam: Present: atraumatic, normocephalic Eye exam: Present: normal appearance, PERRL, EOMI. Absent: scleral icterus, conjunctival injection ENT exam: Present: normal oropharynx, other (Patient does have contusion to the left side of his tongue) Neck exam: Present: normal inspection, full ROM. Absent: tenderness Respiratory exam: Present: wheezes. Absent: respiratory distress, rales, stridor Cardiovascular Exam: Present: regular rate, normal rhythm, normal heart sounds. Absent: systolic murmur, diastolic murmur, rubs, gallop GI/Abdominal exam: Present: soft. Absent: distended, tenderness, guarding, rebound Extremities exam: Present: normal inspection, normal capillary refill. Absent: pedal edema, calf tenderness Back exam: Present: normal inspection. Absent: CVA tenderness (R), CVA tenderness (L) Neurological exam: Present: alert, oriented X3, CN II-XII intact. Absent: motor sensory deficit Skin exam: Present: warm, dry, intact, normal color. Absent: rash Course Vital Signs 11/11/18 11/11/18 11/12/18 20:54 22:27 01:29 Temperature 98.5 F 98.2 F Pulse Rate 98 90 89 Respiratory 22 22 21 Rate Blood Pressure 119/77 105/81 119/95 O2 Sat by Pulse 92 L 95 96 Oximetry 11/12/18 11/12/18 11/12/18 02:07 02:16 03:13 Temperature 98.4 F Pulse Rate 86 84 80 Respiratory 20 Rate Blood Pressure 117/81 O2 Sat by Pulse 98 Oximetry 11/12/18 04:26 Temperature 98.4 F Pulse Rate 80 Respiratory 20 Rate Blood Pressure 135/88 O2 Sat by Pulse 95 Oximetry Medical Decision Making - Medical Decision Making This patient is 78-year-old man with COPD who appears to have had new onset of seizure tonight. He is back at his baseline. The patient's family had been wanting him to be admitted to be seen by neurology, but there is no neurology coverage so I did arrange transfer to [facility] to be seen by neurology and have EEG. The patient then stated that he did not want to go to the other facility as it was out of town and that he would follow up with neurology as an outpatient. He did agree to return if there is any further seizure activity or any other new symptoms began. In addition related to his COPD the patient has been prescribed prednisone but had not started that yet and this was encouraged again. He is feeling a bit better following nebulized treatment here. - Lab Data Result diagrams: 11/11/18 21:00 11/11/18 21:00 Lab Results 11/11/18 11/11/18 11/11/18 Range/Units 21:00 21:00 22:27 WBC 7.0 (3.8-10.6) k/uL RBC 4.02 L (4.30-5.90) m/uL Hgb 12.7 L (13.0-17.5) gm/dL Hct 38.1 L (39.0-53.0) % MCV 94.7 (80.0-100.0) fL MCH 31.6 (25.0-35.0) pg MCHC 33.4 (31.0-37.0) g/dL RDW 15.6 H (11.5-15.5) % Plt Count 180 (150-450) k/uL Neutrophils % 89 % Lymphocytes % 3 % Monocytes % 6 % Eosinophils % 1 % Basophils % 0 % Neutrophils # 6.2 (1.3-7.7) k/uL Lymphocytes # 0.2 L (1.0-4.8) k/uL Monocytes # 0.4 (0-1.0) k/uL Eosinophils # 0.1 (0-0.7) k/uL Basophils # 0.0 (0-0.2) k/uL VBG pH 7.43 H (7.31-7.41) VBG pCO2 44 (37-51) mmHg VBG HCO3 29 H (24-28) mmol/L Sodium 133 L (137-145) mmol/L Potassium 4.3 (3.5-5.1) mmol/L Chloride 98 (98-107) mmol/L Carbon Dioxide 29 (22-30) mmol/L Anion Gap 6 mmol/L BUN 28 H (9-20) mg/dL Creatinine 0.65 L (0.66-1.25) mg/dL Est GFR (CKD-EPI)AfAm >90 (>60 ml/min/1.73 sqM) Est GFR (CKD-EPI)NonAf >90 (>60 ml/min/1.73 sqM) Glucose 139 H (74-99) mg/dL Calcium 8.7 (8.4-10.2) mg/dL Total Bilirubin 1.0 (0.2-1.3) mg/dL AST 31 (17-59) U/L ALT 38 (21-72) U/L Alkaline Phosphatase 96 (38-126) U/L Total Protein 6.1 L (6.3-8.2) g/dL Albumin 3.6 (3.5-5.0) g/dL Urine Color Urine Appearance (Clear) Urine pH (5.0-8.0) Ur Specific Manning (1.001-1.035) Urine Protein (Negative) Urine Glucose (UA) (Negative) Urine Ketones (Negative) Urine Blood (Negative) Urine Nitrite (Negative) Urine Bilirubin (Negative) Urine Urobilinogen (<2.0) mg/dL Ur Leukocyte Esterase (Negative) 11/12/18 Range/Units 00:14 WBC (3.8-10.6) k/uL RBC (4.30-5.90) m/uL Hgb (13.0-17.5) gm/dL Hct (39.0-53.0) % MCV (80.0-100.0) fL MCH (25.0-35.0) pg MCHC (31.0-37.0) g/dL RDW (11.5-15.5) % Plt Count (150-450) k/uL Neutrophils % % Lymphocytes % % Monocytes % % Eosinophils % % Basophils % % Neutrophils # (1.3-7.7) k/uL Lymphocytes # (1.0-4.8) k/uL Monocytes # (0-1.0) k/uL Eosinophils # (0-0.7) k/uL Basophils # (0-0.2) k/uL VBG pH (7.31-7.41) VBG pCO2 (37-51) mmHg VBG HCO3 (24-28) mmol/L Sodium (137-145) mmol/L Potassium (3.5-5.1) mmol/L Chloride (98-107) mmol/L Carbon Dioxide (22-30) mmol/L Anion Gap mmol/L BUN (9-20) mg/dL Creatinine (0.66-1.25) mg/dL Est GFR (CKD-EPI)AfAm (>60 ml/min/1.73 sqM) Est GFR (CKD-EPI)NonAf (>60 ml/min/1.73 sqM) Glucose (74-99) mg/dL Calcium (8.4-10.2) mg/dL Total Bilirubin (0.2-1.3) mg/dL AST (17-59) U/L ALT (21-72) U/L Alkaline Phosphatase (38-126) U/L Total Protein (6.3-8.2) g/dL Albumin (3.5-5.0) g/dL Urine Color Yellow Urine Appearance Clear (Clear) Urine pH 5.5 (5.0-8.0) Ur Specific Manning 1.017 (1.001-1.035) Urine Protein Negative (Negative) Urine Glucose (UA) Negative (Negative) Urine Ketones Negative (Negative) Urine Blood Negative (Negative) Urine Nitrite Negative (Negative) Urine Bilirubin Negative (Negative) Urine Urobilinogen <2.0 (<2.0) mg/dL Ur Leukocyte Esterase Negative (Negative) - EKG Data -: EKG Interpreted by Me EKG shows normal: sinus rhythm, axis (Normal), intervals (Normal), QRS complexes (Normal), ST-T waves (Normal) Rate: normal (Rate 91 bpm) Interpretation: other (Possible old inferior infarct.) Disposition Clinical Impression: New onset seizure, COPD (chronic obstructive pulmonary disease) Disposition: HOME SELF-CARE Condition: Good Instructions: New-Onset Seizure in Adults (ED) Prescriptions: predniSONE 20 mg PO BID #8 tab Is patient prescribed a controlled substance at d/c from ED?: No Referrals: Leonardo Gutierrez MD [Primary Care Provider] - 1-2 days Robbie Wick MD [STAFF PHYSICIAN] - 1-2 days Oscar Michaud MD [Medical Doctor] - 1-2 days
--- NOTE | 2018-11-11 22:08 | CT ---
EXAMINATION TYPE: CT brain wo con DATE OF EXAM: 11/11/2018 COMPARISON: 05/07/2018 HISTORY: Seizure activity. CT DLP: 2485.4 mGycm Automated exposure control for dose reduction was used. FINDINGS: There is cerebral cortical atrophy. There is no mass effect nor midline shift. There is no sign of in tracranial hemorrhage. Barium is intact. There is mild mucosal thickening in the paranasal sinuses. T here is mild to moderate white matter patchy hypodensity. IMPRESSION: CEREBRAL ATROPHY AND CHRONIC SMALL VESSEL ISCHEMIA. MILD SINUSITIS. NO CHANGE COMPARED TO OLD EXAM. N O ACUTE ABNORMALITY.
[2018-11-11 22:37] LABS: VBG PH 7.43 (7.31-7.41)
[2018-11-12 00:32] LABS: Appearance,Urine Clear (Clear); Bilirubin,Urine Negative (Negative); Blood,Urine Negative (Negative); Color,Urine Yellow; Glucose,Urine (UA) Negative (Negative); Ketones,Urine Negative (Negative); Leukocyte Esterase,Urine Negative (Negative); Nitrite,Urine Negative (Negative); PH, Urine 5.5 (5.0-8.0); Protein,Urine Negative (Negative); Specific Gravity,Urine 1.017 (1.001-1.035); Urobilinogen,Urine <2.0 mg/dL (<2.0)
[2018-11-12] MEDS ORDERED: SODIUM CHLORIDE 0.9% 500 ML 500 ML IV STA (01:26)
[2018-11-12] MEDS ORDERED: ALBUTEROL NEBULIZED 2.5 MG/3 ML INHALATION STA (01:39)
--- NOTE | 2018-11-12 02:06 | XR ---
EXAMINATION TYPE: XR chest 2V DATE OF EXAM: 11/12/2018 COMPARISON: 11/08/2018 HISTORY: Seizure TECHNIQUE: Frontal and lateral views of the chest are obtained. FINDINGS: There is elevated left diaphragm. There is no heart failure. There is atelectasis at the l toby bases and much more on the left side. There are chest leads. There is right central venous cathet er with tip in the superior vena cava. IMPRESSION: Chronic atelectasis mainly at the left lung base with elevated diaphragm. There could be diaphragm paralysis. No change compared to last exam.
[2018-11-12 03:14] VITALS: PULSE 80; RESP 20; TEMP 98.4
[2018-11-12] MEDS ORDERED: predniSONE 20 MG TAB PO STA (03:39)
[2018-11-12 04:28] VITALS: BP 135/88
== END 2018-11-12 04:38 | disposition home or self-care (01) ==
LOC: EC 20:48
DX: R56.9 Unspecified convulsions (principal); J44.9 Chronic obstructive pulmonary disease, unspecified; F41.9 Anxiety disorder, unspecified; F32.9 Major depressive disorder, single episode, unspecified; K21.9 Gastro-esophageal reflux disease without esophagitis; E78.5 Hyperlipidemia, unspecified; I10 Essential (primary) hypertension; E07.9 Disorder of thyroid, unspecified; K22.70 Barrett's esophagus without dysplasia; Z79.51 Long term (current) use of inhaled steroids; Z79.899 Other long term (current) drug therapy; Z79.890 Hormone replacement therapy; Z91.018 Allergy to other foods; Z85.118 Personal history of other malignant neoplasm of bronchus and lung; Z87.891 Personal history of nicotine dependence
CPT/HCPCS: 36415; 70450; 71046; 80053; 81003; 82803; 85025; 93005; 94640; 96360; 96361; 99285

== ENCOUNTER → 2018-12-07 | Outpatient (CLI) | payer MEDICARE ==
[2018-12-07 12:47] LABS: ALT 36 U/L (21-72); AST 25 U/L (17-59); Albumin 3.2 g/dL (3.5-5.0); Alkaline Phosphatase 100 U/L (38-126); Anion Gap 6 mmol/L; Blood Urea Nitrogen 15 mg/dL (9-20); Calcium 8.8 mg/dL (8.4-10.2); Carbon Dioxide 30 mmol/L (22-30); Chloride 101 mmol/L (98-107); Glucose 112 mg/dL (74-99); Potassium 4.1 mmol/L (3.5-5.1); Sodium 137 mmol/L (137-145); Total Bilirubin 1.2 mg/dL (0.2-1.3); Total Protein 5.8 g/dL (6.3-8.2)
--- NOTE | 2018-12-07 13:52 | CT ---
EXAMINATION TYPE: CT angio chest DATE OF EXAM: 12/07/2018 COMPARISON: Chest x-ray 11/12/[address] 10/04/2018 HISTORY: Shortness of breath and chest pain CT DLP: 627 mGycm Automated exposure control for dose reduction was used. CONTRAST: CTA scan of the thorax is performed with IV Contrast, patient injected with 100 mL of Isovue 370, pul monary embolism protocol. MIP images are created and reviewed. 3D reconstructed images are created on an independent workstation and reviewed. FINDINGS: LUNGS: The lungs are similar in appearance, chronic basilar atelectatic changes or scarring suspected at the left lung base, correlate to exclude pneumonia. Extensive emphysematous changes are again no patti within the lungs. Some subcentimeter subpleural nodularity is present in the right lung not seen on prior exam. Axial image 73 shows posterior medial aspect of the right lung some possible post infl ammatory change as well as right upper lobe anteriorly 73 through 76, right middle lobe anteriorly im age 89. There is no pleural effusion or pneumothorax seen. The tracheobronchial tree is patent. AORTA: No additional significant abnormality is seen. MEDIASTINUM: There is satisfactory enhancement of the pulmonary artery and its branches, there is no CT evidence for pulmonary embolism. The abnormal soft tissue density in the prevascular region extend ing to the left hilar region shows a similar appearance No pericardial effusion is seen. OTHER: Abdominal aorta measures 3.1 cm in its visualized portion. Extensive atheromatous changes wit hin the aorta. There are coronary artery calcifications as on prior. Port-A-Cath in the right pectoral region via a right jugular approach is noted. IMPRESSION: INDETERMINATE SUBCENTIMETER NODULARITY, FINDINGS COULD BE RELATED TO EARLY AIRSPACE DISEASE, POSTINFL AMMATORY, METASTATIC DISEASE IS NOT EXCLUDED, FOLLOW-UP SUGGESTED. NO EVIDENT PULMONARY EMBOLISM. SIM ILAR FINDINGS AT THE LEFT LUNG BASE APPEAR CHRONIC. Abdominal aortic ectasia. No other significant in terval change.
== END | disposition home or self-care (01) ==
LOC: RADCTMAIN 11:53
PROVIDERS: ATTEND Internal Medicine Hematology & Oncology
DX: R91.8 Other nonspecific abnormal finding of lung field (principal); C34.92 Malignant neoplasm of unspecified part of left bronchus or lung; G40.909 Epilepsy, unspecified, not intractable, without status epilepticus; D64.81 Anemia due to antineoplastic chemotherapy; J43.9 Emphysema, unspecified; N42.9 Disorder of prostate, unspecified
CPT/HCPCS: 80053; 80177; 71275; J1642; Q9967

== ENCOUNTER → 2019-02-12 | Outpatient (CLI) | payer MEDICARE ==
--- NOTE | 2019-02-13 08:46 | MR ---
"EXAMINATION TYPE: MR brain wo/w con DATE OF EXAM: 02/12/2019 COMPARISON: 11/09/2018 HISTORY: Malignant neoplasm of upper lobe TECHNIQUE: Multiplanar, multisequence images of the brain and brainstem is performed without and with IV contras t, utilizing 7.5 mL intravenous Gadavist . FINDINGS: There are multiple enhancing lesions which are new relative previous exam. All demonstrate correspond ing abnormal signal on diffusion imaging. Enhancing lesions: 1. Right temporal lobe measuring 1 x 1 cm 2. Left cerebral peduncle measuring 0.5 x 0.5 cm. 3. Right medial occipital lobe measuring 1 x 1 cm left thalamus measuring 1.1 x 1.1 cm 5. Right parietal cortex measuring 0.9 x 0.9 cm 6. Left frontal lobe measuring 1.1 x 1.1 cm 7. Superior left parietal cortex measuring 1.1 x 1.1 cm 8. Right frontal lobe measuring 0.8 x 0.8 cm. 9. 3 x 3 mm right temporal lobe lesion. 10. 5 x 5 mm right temporal lobe lesion. 11. Right frontal cortical lesion measuring 2 x 3 mm Midline structures demonstrate normal morphology. The craniocervical junction appears within normal limits. There is nodular enhancement of the left middle cerebral artery bifurcation measuring 4.3 cm compatible with aneurysm. Changes of chronic sinusitis are noted. Moderate generalized degenerative change seen with the both confluent and numerous focal areas of abn ormal signal the white matter which are nonspecific but most typical remote microvascular ischemia. IMPRESSION: 1. Numerous enhancing nodules within the calvarium as measured above with diffusion restriction. [place] stasis is favored over subacute areas of infarct. 2. 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 A Yellow level critical message alert has been initiated for Shayne Ann MD via the [employer] 0 | Critical Results System on 02/13/2019 8:40 AM. This message alert has been sent to Shayne Ann MD via the preferences provided by the clinician for the receipt of Radiology Critical Findings. [facility] ID [id number]."
== END | disposition home or self-care (01) ==
LOC: RADMRIMAIN 11:25
PROVIDERS: ATTEND Radiology Radiation Oncology
DX: C34.12 Malignant neoplasm of upper lobe, left bronchus or lung (principal); I67.1 Cerebral aneurysm, nonruptured; G93.89 Other specified disorders of brain; Z92.3 Personal history of irradiation; Z87.891 Personal history of nicotine dependence
CPT/HCPCS: 70553; A9585

== ENCOUNTER → 2019-02-28 | Outpatient (CLI) | payer MEDICARE | END | disposition home or self-care (01) | LOC: LABWHC1 09:23 | PROVIDERS: ATTEND Psychiatry & Neurology Neurology | DX: G40.909 Epilepsy, unspecified, not intractable, without status epilepticus (principal) | CPT/HCPCS: 36415; 80177 ==

== ENCOUNTER 2019-03-19 13:52 | Inpatient (IN) | payer MEDICARE ==
[2019-03-19] MEDS ORDERED: SODIUM CHLORIDE 0.9% 1,000 ML IV STA (14:18)
--- NOTE | 2019-03-19 14:38 | ED ---
General Adult HPI - General Chief complaint: Weakness Stated complaint: weakness Time Seen by Provider: 03/19/19 14:06 Source: patient, family, RN notes reviewed, old records reviewed Mode of arrival: wheelchair - History of Present Illness Initial comments: 78 -year-old male presents for evaluation of generalized weakness. Patient has metastatic lung cancer he is one-week status post radiation. He is receiving radiation for intracranial lesion. Denies focal numbness or weakness. His had decreased oral intake. No vomiting. He has had some diarrhea which is been constant for the past several weeks. No chest pain or dyspnea. No significant cough. Patient is not on chemotherapy. - Related Data Home Medications Medication Instructions Recorded Confirmed ALPRAZolam [Xanax] 0.25 mg PO TID PRN 12/03/15 03/19/19 Atorvastatin [Lipitor] 80 mg PO DAILY 12/03/15 03/19/19 Ubidecarenone [Co Q-10] 200 mg PO DAILY 12/03/15 03/19/19 Levothyroxine Sodium [Levoxyl] 150 mcg PO DAILY 10/08/16 03/19/19 FLUoxetine HCL [PROzac] 40 mg PO DAILY 02/22/17 03/19/19 Fluticasone/Vilanterol [Breo 1 inhalation INHALATION RT-DAILY 04/25/17 03/19/19 Ellipta 200-25 Mcg INH] Multivit-Min/FA/Lycopen/Lutein 1 tab PO DAILY 11/28/17 03/19/19 [Centrum Silver Tablet] Pantoprazole [Protonix] 40 mg PO DAILY 11/28/17 03/19/19 QUEtiapine FUMARATE [SEROquel] 25 mg PO HS 05/07/18 03/19/19 Ramipril 10 mg PO DAILY 05/07/18 03/19/19 Tamsulosin HCl [Flomax] 0.4 mg PO DAILY 05/07/18 03/19/19 Pramipexole [Mirapex] 0.5 mg PO TID PRN 11/08/18 03/19/19 Ipratropium-Albuterol Nebulize 3 ml INHALATION RT-TID 03/19/19 03/19/19 [Duoneb 0.5 mg-3 mg/3 ml Soln] Tiotropium [place] [Spiriva] 1 puff INHALATION RT-DAILY 03/19/19 03/19/19 levETIRAcetam [Keppra] 500 mg PO Q12HR 03/19/19 03/19/19 Previous Rx's Medication Instructions Recorded predniSONE 10 mg PO DAILY #30 tab 11/10/18 Allergies Allergy/AdvReac Type Severity Reaction Status Date / Time Pepperoni AdvReac Nausea & Uncoded 03/19/19 15:12 Vomiting Review of Systems ROS Statement: Those systems with pertinent positive or pertinent negative responses have been documented in the HPI. ROS Other: All systems not noted in ROS Statement are negative. Past Medical History Past Medical History: Cancer, COPD, Eye Disorder, GERD/Reflux, GI Bleed, Hyperlipidemia, Hypertension, Osteoarthritis (OA), Prostate Disorder, Thyroid Disorder Additional Past Medical History / Comment(s): Lung Cancer;COPD,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; peripheral neuropathy, restless leg syndrome, chronic hypoxic respiratory failure with an oxygen at 2 L/m nasal cannula, glaucoma, hemorrhoids, BPH, diverticulosis, hiatal hernia, Garcia's esophagus, chronic gastritis, degenerative arthritis, previous SVT that was ablated History of Any Multi-Drug Resistant Organisms: None Reported Past Surgical History: Adenoidectomy, Cardiac Ablation, Cholecystectomy, Orthopedic Surgery, Tonsillectomy Additional Past Surgical History / Comment(s): cardiac ablation for SVT, mole removed from neck, R elbow surgery (tennis elbow), colonoscopy, circumcism, Vasectomy, R testicle surgery for infection, bilateral carpal tunnel releases. Past Anesthesia/Blood Transfusion Reactions: Family History of Problems w/ Anesthesia Additional Past Anesthesia/Blood Transfusion Reaction / Comment(s): DAUGHTER TAKES LONG TIME TO AWAKEN. Past Psychological History: Anxiety, Depression Smoking Status: Former smoker Past Alcohol Use History: None Reported Past Drug Use History: None Reported - Past Family History Father Family Medical History: No Reported History Additional Family Medical History / Comment(s): Father was healthy and at age 84 yrs. Mother Family Medical History: Cancer Additional Family Medical History / Comment(s): Mother was healthy and in her 70's Brother(s) History Unknown: Yes Sister(s) Family Medical History: Osteoarthritis (OA) General Exam General appearance: alert, in no apparent distress Head exam: Present: atraumatic, normocephalic Eye exam: Present: normal appearance, PERRL ENT exam: Present: mucous membranes dry Neck exam: Present: normal inspection. Absent: tenderness, meningismus Respiratory exam: Present: normal lung sounds bilaterally. Absent: respiratory distress, wheezes, rales Cardiovascular Exam: Present: regular rate, normal rhythm GI/Abdominal exam: Present: soft. Absent: distended, tenderness, guarding Extremities exam: Present: normal inspection, normal capillary refill. Absent: pedal edema Neurological exam: Present: alert, oriented X3, CN II-XII intact. Absent: motor sensory deficit Psychiatric exam: Present: normal affect, normal mood Skin exam: Present: warm, dry, intact. Absent: cyanosis, diaphoretic Course Vital Signs 03/19/19 03/19/19 03/19/19 13:54 14:50 15:37 Temperature 97.8 F Pulse Rate 90 82 79 Respiratory 20 20 18 Rate Blood Pressure 106/60 112/72 115/77 O2 Sat by Pulse 90 L 93 L 93 L Oximetry EKG Findings - EKG Comments: EKG Findings:: EKG: Normal sinus rhythm, rate of 85, HI interval 168, QRS duration 90, QTC 452, no ST segment elevation Medical Decision Making - Medical Decision Making 70-year-old male history of metastatic lung cancer presenting for evaluation of generalized weakness and fatigue. Initial evaluation, patient is stable vitals. He has had recent sick radiation for brain metastases. CT is obtained, this shows atrophy, no intracranial hemorrhage or mass effect. Chest x-ray shows concern for infiltrate in the left lung base. He has leukocytosis white count 12.7, hemoglobin 12.2, normal CMP. Urinalysis is pending. Patient was initiated on antibiotics, IV hydration. He will be admitted for further evaluation treatment. Case discussed with the admitting physician. Oncology will be placed on consult. - Lab Data Result diagrams: 03/19/19 14:43 03/19/19 14:43 Lab Results 03/19/19 03/19/19 03/19/19 Range/Units 14:43 14:43 14:43 WBC 12.7 H (3.8-10.6) k/uL RBC 4.27 L (4.30-5.90) m/uL Hgb 12.2 L (13.0-17.5) gm/dL Hct 38.1 L (39.0-53.0) % MCV 89.4 (80.0-100.0) fL MCH 28.7 (25.0-35.0) pg MCHC 32.1 (31.0-37.0) g/dL RDW 17.2 H (11.5-15.5) % Plt Count 155 (150-450) k/uL Neutrophils % 94 % Lymphocytes % 2 % Monocytes % 3 % Eosinophils % 0 % Basophils % 0 % Neutrophils # 11.8 H (1.3-7.7) k/uL Lymphocytes # 0.2 L (1.0-4.8) k/uL Monocytes # 0.4 (0-1.0) k/uL Eosinophils # 0.1 (0-0.7) k/uL Basophils # 0.0 (0-0.2) k/uL Anisocytosis Slight PT (9.0-12.0) sec INR (<1.2) APTT (22.0-30.0) sec Sodium 136 L (137-145) mmol/L Potassium 4.4 (3.5-5.1) mmol/L Chloride 101 (98-107) mmol/L Carbon Dioxide 30 (22-30) mmol/L Anion Gap 5 mmol/L BUN 21 H (9-20) mg/dL Creatinine 0.69 (0.66-1.25) mg/dL Est GFR (CKD-EPI)AfAm >90 (>60 ml/min/1.73 sqM) Est GFR (CKD-EPI)NonAf >90 (>60 ml/min/1.73 sqM) Glucose 116 H (74-99) mg/dL Plasma Lactic Acid Rolan 1.4 (0.7-2.0) mmol/L Calcium 9.5 (8.4-10.2) mg/dL Magnesium 2.0 (1.6-2.3) mg/dL Total Bilirubin 1.9 H (0.2-1.3) mg/dL AST 27 (17-59) U/L ALT 29 (21-72) U/L Alkaline Phosphatase 100 (38-126) U/L Troponin I (0.000-0.034) ng/mL Total Protein 6.1 L (6.3-8.2) g/dL Albumin 3.6 (3.5-5.0) g/dL 03/19/19 03/19/19 Range/Units 14:43 14:43 WBC (3.8-10.6) k/uL RBC (4.30-5.90) m/uL Hgb (13.0-17.5) gm/dL Hct (39.0-53.0) % MCV (80.0-100.0) fL MCH (25.0-35.0) pg MCHC (31.0-37.0) g/dL RDW (11.5-15.5) % Plt Count (150-450) k/uL Neutrophils % % Lymphocytes % % Monocytes % % Eosinophils % % Basophils % % Neutrophils # (1.3-7.7) k/uL Lymphocytes # (1.0-4.8) k/uL Monocytes # (0-1.0) k/uL Eosinophils # (0-0.7) k/uL Basophils # (0-0.2) k/uL Anisocytosis PT 10.2 (9.0-12.0) sec INR 0.9 (<1.2) APTT 23.4 (22.0-30.0) sec Sodium (137-145) mmol/L Potassium (3.5-5.1) mmol/L Chloride (98-107) mmol/L Carbon Dioxide (22-30) mmol/L Anion Gap mmol/L BUN (9-20) mg/dL Creatinine (0.66-1.25) mg/dL Est GFR (CKD-EPI)AfAm (>60 ml/min/1.73 sqM) Est GFR (CKD-EPI)NonAf (>60 ml/min/1.73 sqM) Glucose (74-99) mg/dL Plasma Lactic Acid Rolan (0.7-2.0) mmol/L Calcium (8.4-10.2) mg/dL Magnesium (1.6-2.3) mg/dL Total Bilirubin (0.2-1.3) mg/dL AST (17-59) U/L ALT (21-72) U/L Alkaline Phosphatase (38-126) U/L Troponin I <0.012 (0.000-0.034) ng/mL Total Protein (6.3-8.2) g/dL Albumin (3.5-5.0) g/dL Disposition Clinical Impression: Lung cancer, Weakness, Dehydration, Pneumonia Disposition: ADMITTED IP TO THIS HOSP Condition: Stable Is patient prescribed a controlled substance at d/c from ED?: No Referrals: Leonardo Gutierrez MD [Primary Care Provider] - 1-2 days Decision to Admit Reason: Admit from EC Decision Date: 03/19/19 Decision Time: 16:11
[2019-03-19 15:01] LABS: Anisocytosis Slight; Basophils % (A) 0 %; Eosinophils # (A) 0.1 k/uL (0-0.7); Eosinophils % (A) 0 %; HCT 38.1 % (39.0-53.0); HGB 12.2 gm/dL (13.0-17.5); Lymphocytes # (A) 0.2 k/uL (1.0-4.8); Lymphocytes % (A) 2 %; MCH 28.7 pg (25.0-35.0); MCHC 32.1 g/dL (31.0-37.0); MCV 89.4 fL (80.0-100.0); Mean Platelet Volume 7.4; Monocytes # (A) 0.4 k/uL (0-1.0); Monocytes % (A) 3 %; Neutrophils # (A) 11.8 k/uL (1.3-7.7); Neutrophils % (A) 94 %; Platelet Count 155 k/uL (150-450); RBC 4.27 m/uL (4.30-5.90); RDW 17.2 % (11.5-15.5); WBC 12.7 k/uL (3.8-10.6)
[2019-03-19 15:06] LABS: INR 0.9 (<1.2); Partial Thromboplastin Time 23.4 sec (22.0-30.0); Prothrombin Time 10.2 sec (9.0-12.0)
[2019-03-19 15:08] LABS: ALT 29 U/L (21-72); AST 27 U/L (17-59); Albumin 3.6 g/dL (3.5-5.0); Alkaline Phosphatase 100 U/L (38-126); Anion Gap 5 mmol/L; Blood Urea Nitrogen 21 mg/dL (9-20); Calcium 9.5 mg/dL (8.4-10.2); Carbon Dioxide 30 mmol/L (22-30); Chloride 101 mmol/L (98-107); Glucose 116 mg/dL (74-99); Potassium 4.4 mmol/L (3.5-5.1); Sodium 136 mmol/L (137-145); Total Bilirubin 1.9 mg/dL (0.2-1.3); Total Protein 6.1 g/dL (6.3-8.2)
--- NOTE | 2019-03-19 15:25 | CT ---
EXAMINATION TYPE: CT brain wo con DATE OF EXAM: 03/19/2019 COMPARISON: 11/11/2018 INDICATION: weakness and falls DLP: 1247.4 mGycm, Automated exposure control for dose reduction was used. CONTRAST: None CT of the brain is performed utilizing 3 mm thick sections through the posterior fossa and 3 mm thick sections through the remaining calvarium. Study is performed within 24 hours of arrival to the hosp ital. No abnormal hyperdensity is present to suggest an acute intracranial hemorrhage. No mass lesion is evident. No acute infarcts are evident. Periventricular white matter hypodensity is present, likely on the bas is of chronic white matter ischemic change. Ventricles and sulci are minimally prominent for the patient age. Paranasal sinuses and mastoid air cells within the [id number] are clear. IMPRESSIONS: 1. Atrophy with periventricular white matter ischemic changes.
--- NOTE | 2019-03-19 15:32 | XR ---
EXAMINATION TYPE: XR chest 2V DATE OF EXAM: 03/19/2019 COMPARISON: 11/12/2018 chest x-ray, CTA chest 12/07/2018 INDICATION: Weakness, history of lung cancer COPD TECHNIQUE: Frontal and lateral views of the chest are obtained. FINDINGS: The heart size is enlarged. The pulmonary vasculature is normal. There is elevation left diaphragm. Infiltrate is along the left diaphragm. Correlate for atelectasis. Heart is present on the right with the tip in the superior vena cava region. Previous thickening andria ng the fissure on lateral projection appears diminished compared to prior study. IMPRESSION: 1. Infiltrate along the left diaphragm. Correlate for atelectasis. Underlying neoplasm at this level should be considered. This appears less suspicious than the comparison chest x-ray.
[2019-03-19] MEDS ORDERED: CEFEPIME 2 GM in SODIUM CHLORIDE 0.9% 100 ML IVPB STA (16:06)
[2019-03-19] MEDS ORDERED: ACETAMINOPHEN TAB 325 MG TAB PO PRN (16:07)
[2019-03-19] MEDS ORDERED: NALOXONE 0.4 MG/ML 1 ML VIAL IV PRN (16:07)
[2019-03-19] MEDS ORDERED: VANCOMYCIN IV PER PHARMACY 1 EACH MISC MISCELLANE PRN (16:07)
[2019-03-19] MEDS ORDERED: SODIUM CHLORIDE 0.9% 500 ML 500 ML IV ONE (16:07)
[2019-03-19] MEDS ORDERED: VANCOMYCIN 1,500 MG in SODIUM CHLORIDE 0.9% 250 ML IVPB STA (16:13)
[2019-03-19] MEDS: SODIUM CHLORIDE 0.9% 1,000 ML IV SCH (16:36)
[2019-03-19] MEDS ORDERED: PRAMIPEXOLE 0.5 MG TAB PO STA (17:33)
[2019-03-19 19:12] LABS: Appearance,Urine Cloudy (Clear); Bacteria,Urine Many /hpf; Bilirubin,Urine Negative (Negative); Blood,Urine Small (Negative); Color,Urine Yellow; Glucose,Urine (UA) Negative (Negative); Ketones,Urine Negative (Negative); Leukocyte Esterase,Urine Large (Negative); Mucus,Urine Many /hpf; Nitrite,Urine Positive (Negative); PH, Urine 5.5 (5.0-8.0); Protein,Urine 1+ (Negative); RBC,Urine 4 /hpf (0-5); Specific Gravity,Urine 1.034 (1.001-1.035); Urobilinogen,Urine <2.0 mg/dL (<2.0); WBC,Urine 56 /hpf (0-5)
[2019-03-19] MEDS: IPRATROPIUM-ALBUTEROL 3 ML NEB INHALATION SCH (19:33)
[2019-03-19] MEDS: FORMOTEROL FUMARATE 20 MCG/2 ML NEBU INHALATION SCH (20:24)
[2019-03-19] MEDS: BUDESONIDE 0.5 MG/2 ML NEBU INHALATION SCH (20:24)
[2019-03-19] MEDS: levETIRAcetam 500 MG TAB PO SCH (21:00)
[2019-03-19] MEDS: QUEtiapine 25 MG TAB PO SCH (21:00)
[2019-03-19] MEDS: PRAMIPEXOLE 0.5 MG TAB PO PRN (21:02)
[2019-03-19] MEDS: ALPRAZolam 0.25 MG TAB PO PRN (21:03)
--- NOTE | 2019-03-19 21:47 | HP ---
HISTORY AND PHYSICAL DATE OF ADMISSION: 03/19/2019 DATE OF SERVICE: 03/19/2019 PRESENTING COMPLAINT: Weak and tired. HISTORY OF PRESENTING COMPLAINT: This is a very pleasant 78-year-old patient who follows with Dr. Leonardo Gutierrez. Chronic stable medical conditions include diverticulosis, GERD, hyperlipidemia, hypertension, osteoarthritis, BPH. The patient has a diagnosis of small-cell lung cancer being followed by Oncology and Dr. Grace did get chemo and radiation treatment. The patient informed me is his cancer is under control. The patient, for last few days, is becoming increasingly weak and tired, can walk a few steps with a walker. Slight cough/slight shortness of breath. No obvious urinary symptoms. Admitted to the ER. The patient's appetite has been down. Nurse informed me that the patient had about 75% of his supper, but generally feels tired and run down. REVIEW OF SYSTEMS: CONSTITUTIONAL: As above. HEENT: Decreased hearing. RESPIRATORY as above. CARDIOVASCULAR none. GASTROINTESTINAL: Occasional constipation. GENITOURINARY: None. MUSCULOSKELETAL: Pain in the joints. DERMATOLOGICAL: None. HEMATOLOGICAL: None. LYMPHATICS: None. PSYCHIATRIC: Does feel low. NEUROLOGICAL: Generalized muscle weakness. PAST MEDICAL HISTORY: Small cell lung cancer getting chemo and radiation, COPD on home oxygen, left middle artery saccular aneurysm, colonic diverticulosis, GERD, hyperlipidemia, hypertension, primary osteoarthritis, BPH, restless legs syndrome, peripheral neuropathy, chronic hemorrhoids. PAST SURGICAL HISTORY: Adenoidectomy, cardiac ablation, cholecystectomy, tonsillectomy, ablation for SVT, mole removed from the neck, right elbow surgery, circumcision, vasectomy, right testicle surgery for infection, bilateral carpal tunnel release. PSYCH HISTORY: Anxiety, depression. SOCIAL HISTORY: The patient is a since 2005. Lives with his daughter Rupa, has a 4 wheel walker with seat. The patient smoked for about 49 years, stopped in 2016. Smoked a pack a day. The patient quit heavy drinking about 10 years ago. FAMILY HISTORY: Unremarkable reviewed. HOME MEDICATIONS: 1. Prednisone 10 mg a day. 2. Keppra 500 mg q.12. 3. CO Q 10 200 mg p.o. daily. 4. Spiriva 1 puff daily. 5. Flomax 0.4 mg p.o. daily. 6. Ramipril 10 mg p.o. daily. 7. Seroquel 25 mg q.h.s. 8. Protonix 40 mg p.o. daily. 9. Centrum Silver 1 tablet p.o. daily. 10.Levothyroxine 150 mcg daily. 11.DuoNeb t.i.d. 12.Breo Ellipta 200/25 one puff daily. 13.Prozac 40 mg p.o. daily. 14.Lipitor 80 mg p.o. daily. 15.Xanax 0.25 p.o. t.i.d. p.r.n. ALLERGIES: TO PEPPERONI. PHYSICAL EXAMINATION: VITAL SIGNS: Temperature 97.8, pulse 90, respiratory 20, blood pressure 106/60, pulse ox 98% on 2 L. GENERAL APPEARANCE: Average built, lying in bed, tired-appearing. EYES: Pupils equal. Conjunctivae normal. HEENT: External appearance of nose and ears normal. Oral cavity normal. Decreased hearing. NECK: JVD not raised. Mass not palpable. RESPIRATORY: Effort increased. LUNGS: Decreased breath sounds. Some prolonged expiration. CARDIOVASCULAR: 1st and 2nd sounds normal. No edema. ABDOMEN: Soft, nontender. Liver and spleen not palpable. PSYCHIATRY: Awake. Able to answer simple questions. NEUROLOGICAL: Pupils equal. Cranial nerves grossly intact. Power and sensation grossly intact. INVESTIGATIONS: White count 12.7, hemoglobin 12.2, platelets 155. Potassium 4.4, BUN 21, creatinine 0.69. UA positive for leukocyte esterase, WBC bacteria. EKG tracing personally reviewed by me shows normal sinus rhythm. Chest x-ray film, personally reviewed by me shows left-sided infiltrate with possible diaphragm elevated. ASSESSMENT: 1. Left lower lobe pneumonia. 2. Chronic obstructive pulmonary disease in an ex-smoker. 3. Chronic hypoxic respiratory failure from underlying chronic obstructive pulmonary disease. 4. Small cell lung cancer status post chemo and radiation treatment under remission per patient. 5. 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 6. Infrarenal aortic aneurysm 4 cm. 7. Colonic diverticulosis asymptomatic. 8. Gastroesophageal reflux disease. 9. Hyperlipidemia. 10.Essential hypertension. 11.Primary osteoarthritis multiple joints. 12.Benign prostatic hypertrophy. 13.Restless legs syndrome. 14.Peripheral neuropathy could be from underlying chemotherapy/malignancy. 15.Chronic hemorrhoids. PLAN: Patient was started on cefepime in the ER. Home medications are reviewed. We will get Physical therapy to assess the patient. The patient also getting IV fluids. Care was discussed with the patient. Copy to Dr. Leonardo Gutierrez. ALDEN / KADEEM: [id number] /
[2019-03-20] MEDS: CEFEPIME 2 GM in SODIUM CHLORIDE 0.9% 100 ML IVPB SCH ×3 (00:09→16:15)
[2019-03-20] MEDS: SODIUM CHLORIDE 0.9% 1,000 ML IV SCH ×2 (00:11→16:15)
[2019-03-20] MEDS: LEVOTHYROXINE 75 MCG TAB PO SCH (05:51)
[2019-03-20] MEDS ORDERED: VANCOMYCIN 1,500 MG in SODIUM CHLORIDE 0.9% 250 ML IVPB SCH (06:00)
[2019-03-20] MEDS ORDERED: NON-FORMULARY DRUG (Tiotropium Bromide [Spiriva] 1 PUFF) INHALATION SCH (08:00)
[2019-03-20] MEDS: levETIRAcetam 500 MG TAB PO SCH ×2 (08:30→21:15)
[2019-03-20] MEDS: predniSONE 10 MG TAB PO SCH (08:30)
[2019-03-20] MEDS: ATORVASTATIN 80 MG TAB PO SCH (08:30)
[2019-03-20] MEDS: PANTOPRAZOLE 40 MG TABLET PO SCH (08:30)
[2019-03-20] MEDS: VIT A,C & E-LUTEIN-MINERALS 1 EACH TAB PO SCH (08:30)
[2019-03-20] MEDS: TAMSULOSIN 0.4 MG CAP.ER.24H PO SCH (08:30)
[2019-03-20] MEDS: FLUoxetine HCL 20 MG CAP PO SCH (08:30)
[2019-03-20] MEDS: LISINOPRIL 20 MG TAB PO SCH (08:31)
[2019-03-20] MEDS: BUDESONIDE 0.5 MG/2 ML NEBU INHALATION SCH ×2 (09:00→20:00)
[2019-03-20] MEDS: FORMOTEROL FUMARATE 20 MCG/2 ML NEBU INHALATION SCH ×2 (09:00→20:12)
[2019-03-20] MEDS: IPRATROPIUM-ALBUTEROL 3 ML NEB INHALATION SCH ×3 (09:00→20:00)
[2019-03-20 09:30] VITALS: BMI 25.5
[2019-03-20] MEDS ORDERED: RX INFO: IV CONTRAST WAS GIVEN 1 EACH MISC MISCELLANE PRN (10:45)
[2019-03-20] MEDS: DEXAMETHASONE 4 MG TAB PO SCH ×3 (11:45→23:40)
--- NOTE | 2019-03-20 12:18 | CT ---
EXAMINATION TYPE: CT chest w con DATE OF EXAM: 03/20/2019 COMPARISON: 12/07/2018 HISTORY: History of small cell lung cancer, follow up study. CT DLP: 350.5 mGycm Automated exposure control for dose reduction was used. CONTRAST: CT scan of the chest is performed with IV Contrast, patient injected with 100 mL of Isovue M300. FINDINGS: LUNGS: Diffuse emphysematous changes are seen. No pneumothorax. There are areas of consolidation note d bilaterally which are somewhat patchy. Soft tissue attenuation involving the left hilum is similar appearance to the prior exam extending to the periphery of the left upper lobe. Posterior subsegmenta l consolidations most typical of atelectasis. MEDIASTINUM: There is soft tissue prominence in the left hilum measuring short axis of 1.2 cm. The abnormal soft tissue density in the left hilum is stable appearance relative to the prior exam.. Dens e coronary artery calcification noted in the heart is enlarged with a small pericardial effusion. OTHER: Abdominal aorta measures 3.1 cm in its visualized portion. Extensive atheromatous changes wit hin the aorta. There are coronary artery calcifications as on prior. Port-A-Cath in the right pectora l region via a right jugular approach is noted. Hypertrophic and degenerative change of the spine. Es ophageal wall thickening noted. There is increased enhancement involving the posterior segment of the right lobe the liver which is nonspecific could be related to shunting. Ultrasound could be obtained . IMPRESSION: 1. There persists bilateral areas of consolidation majority which are likely the basis of atelectasis . More confluent left hilar and left upper lobe area of soft tissue attenuation has a morphology more typical of atelectasis than neoplastic process but appears stable from the prior exam. There is left peribronchial wall thickening and soft tissue fullness at the bifurcation of the left main bronchus which could represent underlying adenopathy is short axis measurement of 1.2 cm. This is stable. Ther e is some improved aeration at the level lung base relative to the previous exam with noticeable impr ovement of an area of consolidation. 2. Diffuse COPD 3. Cardiomegaly, dense coronary artery calcification, and small pericardial effusion 4. Correlate for pulmonary fibrosis. 5. Vague increased enhancement posterior segment right lobe of the liver may represent vascular shunt ing rather than neoplastic process. Recommend short-term follow-up ultrasound. 6. nonspecific esophageal wall thickening near the GE junction.
--- NOTE | 2019-03-20 12:27 | P.CONS ---
History of Present Illness - Reason for Consult Consult date: 03/20/19 SCLC Requesting physician: Shayne Archibald - Chief Complaint weakness - History of Present Illness Mr. Coleman is a very pleasant male pt of Dr. Ann and PCP Dr. Gutierrez with complex medical conditions including COPD, hypothyroidism, hyperlipidemia and BPH. He was referred initially to Hem/Onc for anemia. 07/2016 Hgb noted to have slight trend down, renal function and CMP were WNL. Dec 2016 hospitalized for BRBPR, had 2 more visits for same on 03/07 and 04/25. Colon/EGD with Dr. Park on 02/22, neg for malignancy. No repeat endoscopy on the 04/25 visit but, the patient was placed on oral iron BID and his daily baby asa was discontinued. Pt had trouble regaining his strength and stamina, 05/25/18, admitted to [facility] with syncopal episode, CTA was negative for PE, but revealed MICKEY masses, largest was 5.1 cm with upper mediastinal direct involvement. CT chest revealed left hilar lymphadenopathy, biopsy on 05/09/18, path revealed small cell carcinoma, staging PET 05/20/18 revealed FDG-active disease in chest, no extra thoracic disease, MRI of head was negative. He was started on carbo/CASINO FLOOR RUNNER in May 2018. Treatment f/u CT after 3 cycles showed a partial response. He completed 6 cycles in September and was to start on consolidative, small field radiation. He was admitted in October with progressive SOB and ELGIN, cough, some difficulty swallowing, diagnosed with upper respiratory infection, MRI of the brain was negative for metastases. MRI was done on 02/13/19-I believe as a follow-up to Radiation Oncology and for symptoms. Patient was noted to have multiple brain mets. He is recent s/p WBRT with Dr. Grace, completed last . Pt progressively declined postradiation, weakness, fell on Sat, couldn't hardlly move, oral intake decreased, his family brought him in for evaluation. Pt c/o diarrhea, hematuria. He denied fevers, nausea, vomiting, chest pain, difficulty breathing, abdominal cramping or distention, swelling or pain. Feels stronger today then yesterday. Review of Systems 14 point ROS is negative except as stated in HPI Past Medical History Past Medical History: Cancer, COPD, Eye Disorder, GERD/Reflux, GI Bleed, Hyperlipidemia, Hypertension, Osteoarthritis (OA), Prostate Disorder, Thyroid Disorder Additional Past Medical History / Comment(s): Lung Cancer;COPD,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; peripheral neuropathy, restless leg syndrome, chronic hypoxic respiratory failure with an oxygen at 2 L/m nasal cannula, glaucoma, hemorrhoids, BPH, diverticulosis, hiatal hernia, Garcia's esophagus, chronic gastritis, degenerative arthritis, previous SVT that was ablated, PARKINSONS DISEASE. History of Any Multi-Drug Resistant Organisms: None Reported Past Surgical History: Adenoidectomy, Cardiac Ablation, Cholecystectomy, Orthopedic Surgery, Tonsillectomy Additional Past Surgical History / Comment(s): cardiac ablation for SVT, mole removed from neck, R elbow surgery (tennis elbow), colonoscopy, circumcism, Vasectomy, R testicle surgery for infection, bilateral carpal tunnel releases. Past Anesthesia/Blood Transfusion Reactions: Family History of Problems w/ Anesthesia Additional Past Anesthesia/Blood Transfusion Reaction / Comm: DAUGHTER TAKES LONG TIME TO AWAKEN. Past Psychological History: Anxiety, Depression Additional Psychological History / Comment(s): pt's pased away 2005.Pt LIVES WITH daughter connor AND OTHER FAMILY MEMBERS HELP OUT WELL. lives in one level home that has 4 steps to enter. has home . uses 4 wheeled walker w/seat at times. Smoking Status: Former smoker Past Alcohol Use History: None Reported Additional Past Alcohol Use History / Comment(s): Pt states he started smoking at age 16 (1957)and quit . was a 1 ppd smoker. admits to drinking for some period of time in his past-quit heavy drinking 10 years ago ; none now Past Drug Use History: None Reported - Past Family History Father Family Medical History: No Reported History Additional Family Medical History / Comment(s): Father was healthy and at age 84 yrs. Mother Family Medical History: Cancer Additional Family Medical History / Comment(s): Mother was healthy and in her 70's Brother(s) History Unknown: Yes Sister(s) Family Medical History: Osteoarthritis (OA) Medications and Allergies Home Medications Medication Instructions Recorded Confirmed Type ALPRAZolam [Xanax] 0.25 mg PO TID PRN 12/03/15 03/19/19 History Atorvastatin [Lipitor] 80 mg PO DAILY 12/03/15 03/19/19 History Ubidecarenone [Co Q-10] 200 mg PO DAILY 12/03/15 03/19/19 History Levothyroxine Sodium [Levoxyl] 150 mcg PO DAILY 10/08/16 03/19/19 History FLUoxetine HCL [PROzac] 40 mg PO DAILY 02/22/17 03/19/19 History Fluticasone/Vilanterol [Breo 1 inhalation INHALATION RT-DAILY 04/25/17 03/19/19 History Ellipta 200-25 Mcg INH] Multivit-Min/FA/Lycopen/Lutein 1 tab PO DAILY 11/28/17 03/19/19 History [Centrum Silver Tablet] Pantoprazole [Protonix] 40 mg PO DAILY 11/28/17 03/19/19 History QUEtiapine FUMARATE [SEROquel] 25 mg PO HS 05/07/18 03/19/19 History Ramipril 10 mg PO DAILY 05/07/18 03/19/19 History Tamsulosin HCl [Flomax] 0.4 mg PO DAILY 05/07/18 03/19/19 History Pramipexole [Mirapex] 0.5 mg PO TID PRN 11/08/18 03/19/19 History predniSONE 10 mg PO DAILY #30 tab 11/10/18 03/19/19 Rx Ipratropium-Albuterol Nebulize 3 ml INHALATION RT-TID 03/19/19 03/19/19 History [Duoneb 0.5 mg-3 mg/3 ml Soln] Tiotropium [place] [Spiriva] 1 puff INHALATION RT-DAILY 03/19/19 03/19/19 History levETIRAcetam [Keppra] 500 mg PO Q12HR 03/19/19 03/19/19 History Allergies Allergy/AdvReac Type Severity Reaction Status Date / Time Pepperoni AdvReac Nausea & Uncoded 03/19/19 15:12 Vomiting Physical Exam Vitals: Vital Signs Temp Pulse Pulse Resp BP BP Pulse Ox 03/20/19 04:37 97.3 F L 79 20 160/83 92 L 03/20/19 00:00 82 18 03/19/19 20:00 97.5 F L 82 18 125/76 95 03/19/19 19:42 88 03/19/19 19:33 84 03/19/19 18:09 97.2 F L 83 17 137/78 91 L 03/19/19 17:36 98.3 F 83 18 103/77 97 03/19/19 15:37 79 18 115/77 93 L 03/19/19 14:50 82 20 112/72 93 L 03/19/19 13:54 97.8 F 90 20 106/60 90 L Intake and Output 03/19/19 03/20/19 03/20/19 22:59 06:59 14:59 Intake Total 845 Balance 845 Intake: Intake, IV Titration 725 Amount Cefepime 2 gm In Sodium 100 Chloride 0.9% 100 ml @ 200 mls/hr IVPB Q8HR [facility] Rx#:[id number] Sodium Chloride 0.9% 1, 375 000 ml @ 75 mls/hr IV . [id number] [facility] Rx#:[id number] Vancomycin 1,500 mg In 250 Sodium Chloride 0.9% 250 ml @ 125 mls/hr IVPB Q12H [facility] Rx#:[id number] Oral 120 Other: Voiding Method Urinal Urinal Diaper Incontinent # Voids 1 2 Weight 80.739 kg - Constitutional General appearance: cooperative, no acute distress, obese - EENT Eyes: anicteric sclerae, EOMI, normal appearance ENT: hearing grossly normal, normal oropharynx - Neck Neck: no lymphadenopathy - Respiratory Respiratory: bilateral: CTA, diminished - Cardiovascular Rhythm: regular Heart sounds: normal: S1, S2 leg Peripheral Edema: bilateral: Trace - Gastrointestinal General gastrointestinal: no absent bowel sounds, no decreased bowel sounds, no distended, no hepatomegaly, no hyperactive bowel sounds, normal bowel sounds, no organomegaly, no rigid, no scaphoid, soft, no splenomegaly, no tenderness, no umbilical hernia, no ventral hernia - Integumentary Integumentary: pale - Neurologic Neurologic: CNII-XII intact - Musculoskeletal Musculoskeletal: generalized weakness - Psychiatric Psychiatric: A&O x's 3, appropriate affect, intact judgment & insight Results CBC & Chem 7: 03/19/19 14:43 03/19/19 14:43 Labs: Abnormal Lab Results - Last 24 Hours (Table) 03/19/19 03/19/19 03/19/19 Range/Units 14:43 14:43 18:45 WBC 12.7 H (3.8-10.6) k/uL RBC 4.27 L (4.30-5.90) m/uL Hgb 12.2 L (13.0-17.5) gm/dL Hct 38.1 L (39.0-53.0) % RDW 17.2 H (11.5-15.5) % Neutrophils # 11.8 H (1.3-7.7) k/uL Lymphocytes # 0.2 L (1.0-4.8) k/uL Sodium 136 L (137-145) mmol/L BUN 21 H (9-20) mg/dL Glucose 116 H (74-99) mg/dL Total Bilirubin 1.9 H (0.2-1.3) mg/dL Total Protein 6.1 L (6.3-8.2) g/dL Urine Protein 1+ H (Negative) Urine Blood Small H (Negative) Ur Leukocyte Esterase Large H (Negative) Urine WBC 56 H (0-5) /hpf Urine Bacteria Many H (None) /hpf Urine Mucus Many H (None) /hpf Chest x-ray: report reviewed CT Scan - head: report reviewed Assessment and Plan (1) Weakness Narrative/Plan: Likely secondary to WBRT and some rebound brain swelling after discontinuation of steroids. Dex resumed. PT/OT eval and treat Discussed with pt possibility of rehab if weakness remains a problem Current Visit: Yes Status: Acute Priority: High Code(s): R53.1 - WEAKNESS SNOMED Code(s): 65285511 (2) Diarrhea Narrative/Plan: Stool studies ordered Current Visit: Yes Status: Acute Priority: High Code(s): R19.7 - DIARRHEA, UNSPECIFIED SNOMED Code(s): 30752215 (3) Hematuria Narrative/Plan: UA ordered with reflux Current Visit: Yes Status: Acute Priority: High Code(s): R31.9 - HEMATURIA, UNSPECIFIED SNOMED Code(s): 24310356 (4) Small cell lung cancer Narrative/Plan: Six-month follow-up study, CT of the chest ordered Current Visit: No Status: Chronic Priority: Medium Code(s): C34.90 - MALIGNANT NEOPLASM OF UNSP PART OF UNSP BRONCHUS OR LUNG SNOMED Code(s): 605522575 Plan: Doctor attests: I performed a history and physical examination of this patient with dictator. I developed impression and plan, I agree with dictators note, documented as a scribe.
[2019-03-20 15:11] LABS: Appearance,Urine Clear (Clear); Bacteria,Urine Moderate /hpf; Bilirubin,Urine Negative (Negative); Blood,Urine Trace (Negative); Color,Urine Light Yellow; Glucose,Urine (UA) Negative (Negative); Ketones,Urine Negative (Negative); Leukocyte Esterase,Urine Moderate (Negative); Mucus,Urine Rare /hpf; Nitrite,Urine Negative (Negative); Protein,Urine Negative (Negative); RBC,Urine 2 /hpf (0-5); Specific Gravity,Urine 1.042 (1.001-1.035); Urobilinogen,Urine <2.0 mg/dL (<2.0)
[2019-03-20] MEDS: PRAMIPEXOLE 0.5 MG TAB PO PRN (16:17)
[2019-03-20] MEDS: QUEtiapine 25 MG TAB PO SCH (21:15)
[2019-03-21] MEDS: SODIUM CHLORIDE 0.9% 1,000 ML IV SCH ×3 (00:48→23:55)
[2019-03-21] MEDS: CEFEPIME 2 GM in SODIUM CHLORIDE 0.9% 100 ML IVPB SCH ×4 (00:48→23:53)
[2019-03-21] MEDS: ALPRAZolam 0.25 MG TAB PO PRN ×2 (00:59→11:26)
--- NOTE | 2019-03-21 05:24 | PN ---
PROGRESS NOTE DATE OF SERVICE: 03/20/2019 PRESENTING COMPLAINT: Weak and tired. INTERVAL HISTORY: This patient was getting chemoradiation treatment for small-cell lung cancer, presented with left lower lobe pneumonia. Doing much better this morning. Ate all his breakfast. Sitting up in a chair. Overall feeling better. Much more peppier than when he had come. REVIEW OF SYSTEMS: Done for constitutional, cardiovascular, GI, pulmonary; relevant findings as above. CURRENT MEDICATIONS: Current medications are reviewed that include IV cefepime. PHYSICAL EXAMINATION: On examination, afebrile, pulse 74, respiration 17, blood pressure 159/87, pulse ox 98% on 2 L. GENERAL APPEARANCE: Sitting up, far more awake. EYES: Pupils equal. Conjunctivae normal. NECK: JVD not raised. Mass not palpable. RESPIRATORY: Effort increased. LUNGS: Decreased breath sounds. CARDIOVASCULAR: First and second sounds normal. No edema. ABDOMEN: Soft, nontender. Liver and spleen not palpable. PSYCHIATRY: Awake, answering questions appropriately. INVESTIGATIONS: Urine culture pending. ASSESSMENT: 1. Left lower lobe pneumonia suspect gram-negative organism, present on admission. 2. Chronic obstructive pulmonary disease in an ex-smoker. 3. Chronic hypoxic respiratory failure from underlying chronic obstructive pulmonary disease. 4. Small cell lung cancer status post chemoradiation treatment, currently under remission. 5. 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 6. Infrarenal aortic aneurysm 4 cm. 7. Colonic diverticulosis, asymptomatic. 8. Gastroesophageal reflux disease. 9. Hyperlipidemia. 10.Essential hypertension. 11.Primary osteoarthritis multiple joints. 12.Benign prostatic hypertrophy. 13.Restless legs syndrome. 14.Peripheral neuropathy could be underlying chemotherapy malignancy. 15.Chronic hemorrhoids. PLAN: The patient is doing definitely better. Will give antibiotics for another 1 to 2 days. Repeat labs in the morning. Care was discussed with the family at the bedside. Depending on the clinical course and his physical bearings, we will decide if he can go back home or will need rehab. MMODL / IJN: [id number] /
[2019-03-21] MEDS: LEVOTHYROXINE 75 MCG TAB PO SCH (06:19)
[2019-03-21 07:00] LABS: Anisocytosis Slight; Basophils % (A) 0 %; Eosinophils % (A) 1 %; HCT 37.4 % (39.0-53.0); HGB 11.7 gm/dL (13.0-17.5); Lymphocytes # (A) 0.2 k/uL (1.0-4.8); Lymphocytes % (A) 4 %; MCH 28.3 pg (25.0-35.0); MCHC 31.1 g/dL (31.0-37.0); MCV 90.9 fL (80.0-100.0); Monocytes # (A) 0.2 k/uL (0-1.0); Monocytes % (A) 4 %; Neutrophils # (A) 4.9 k/uL (1.3-7.7); Neutrophils % (A) 91 %; Platelet Count 180 k/uL (150-450); RBC 4.12 m/uL (4.30-5.90); RDW 16.9 % (11.5-15.5); WBC 5.4 k/uL (3.8-10.6)
[2019-03-21 07:12] LABS: Anion Gap 5 mmol/L; Blood Urea Nitrogen 16 mg/dL (9-20); Calcium 9.5 mg/dL (8.4-10.2); Carbon Dioxide 28 mmol/L (22-30); Chloride 105 mmol/L (98-107); Glucose 128 mg/dL (74-99); Potassium 4.6 mmol/L (3.5-5.1); Sodium 138 mmol/L (137-145)
[2019-03-21] MEDS: IPRATROPIUM-ALBUTEROL 3 ML NEB INHALATION SCH ×3 (08:40→20:21)
[2019-03-21] MEDS: FORMOTEROL FUMARATE 20 MCG/2 ML NEBU INHALATION SCH ×2 (08:40→20:21)
[2019-03-21] MEDS: BUDESONIDE 0.5 MG/2 ML NEBU INHALATION SCH ×2 (08:40→20:21)
[2019-03-21] MEDS: TAMSULOSIN 0.4 MG CAP.ER.24H PO SCH (08:58)
[2019-03-21] MEDS: LISINOPRIL 20 MG TAB PO SCH (08:58)
[2019-03-21] MEDS: ATORVASTATIN 80 MG TAB PO SCH (08:58)
[2019-03-21] MEDS: predniSONE 10 MG TAB PO SCH (08:58)
[2019-03-21] MEDS: DEXAMETHASONE 4 MG TAB PO SCH (08:58)
[2019-03-21] MEDS: levETIRAcetam 500 MG TAB PO SCH ×2 (08:58→21:07)
[2019-03-21] MEDS: FLUoxetine HCL 20 MG CAP PO SCH (08:58)
[2019-03-21] MEDS: VIT A,C & E-LUTEIN-MINERALS 1 EACH TAB PO SCH (08:58)
[2019-03-21] MEDS: PANTOPRAZOLE 40 MG TABLET PO SCH (08:58)
[2019-03-21] MEDS: PRAMIPEXOLE 0.5 MG TAB PO PRN ×2 (10:42→21:10)
[2019-03-21] MEDS ORDERED: diphenhydrAMINE 25 MG CAP PO PRN (14:44)
--- NOTE | 2019-03-21 14:55 | P.PN ---
Subjective Progress Note Date: 03/21/19 Principal diagnosis: Weakness In follow-up today patient is sitting in the chair, he ate 100% of his lunch, he did work with PT today but, did not make it as far as he did yesterday. Patient states some difficulty sleeping last night, moderate anxiety complaints. Feels he is thinking clearer Objective - Vital Signs Vital signs: Vital Signs Temp 97.8 F 03/21/19 12:34 Pulse 85 03/21/19 12:34 Resp 18 03/21/19 12:34 BP 124/80 03/21/19 12:34 Pulse Ox 94 L 03/21/19 12:34 Intake & Output 03/20/19 03/21/19 03/21/19 18:59 06:59 18:59 Intake Total 800 950 Output Total 500 Balance 800 450 Weight 80.739 kg Intake: Intake, IV Titration 800 750 Amount Cefepime 2 gm In Sodium 200 100 Chloride 0.9% 100 ml @ 200 mls/hr IVPB Q8HR [facility] Rx#:[id number] Sodium Chloride 0.9% 1, 600 650 000 ml @ 75 mls/hr IV . [id number] [facility] Rx#:[id number] Oral 200 Output: Urine 500 Other: Voiding Method Urinal Diaper Diaper Diaper Incontinent Incontinent Incontinent # Voids 2 3 # Bowel Movements 2 1 - Exam Well-developed, overweight male sitting in the chair, no acute distress, alert and oriented to self, place, time and situation, moderate generalized tremors noted, mild bilateral lower extremity edema. - Labs CBC & Chem 7: 03/21/19 06:38 03/21/19 06:38 Labs: Abnormal Lab Results - Last 24 Hours (Table) 03/20/19 03/21/19 03/21/19 Range/Units 14:00 06:38 06:38 RBC 4.12 L (4.30-5.90) m/uL Hgb 11.7 L (13.0-17.5) gm/dL Hct 37.4 L (39.0-53.0) % RDW 16.9 H (11.5-15.5) % Lymphocytes # 0.2 L (1.0-4.8) k/uL Creatinine 0.64 L (0.66-1.25) mg/dL Glucose 128 H (74-99) mg/dL Ur Specific [place] 1.042 H (1.001-1.035) Urine Blood Trace H (Negative) Ur Leukocyte Esterase Moderate H (Negative) Urine WBC 22 H (0-5) /hpf Urine Bacteria Moderate H (None) /hpf Urine Mucus Rare H (None) /hpf Microbiology - Last 24 Hours (Table) 03/20/19 14:51 Stool Culture - Preliminary Stool 03/20/19 14:00 Urine Culture - Preliminary Urine,Voided Assessment and Plan (1) Weakness Narrative/Plan: Likely secondary to WBRT and some rebound brain swelling after discontinuation of steroids. Continue steriods, dose being reduced Continue PT/OT eval and treat Patient and family are still open to the possibility of rehab if weakness remains a problem Reviewed anxiety and insomnia as potential contributing factors that would make him have a lack of improvement during his PT/OT session today Current Visit: Yes Status: Acute Priority: High Code(s): R53.1 - WEAKNESS SNOMED Code(s): 32307747 (2) Diarrhea Narrative/Plan: Stool studies still pending, only 1 BM today Current Visit: Yes Status: Acute Priority: High Code(s): R19.7 - DIARRHEA, UNSPECIFIED SNOMED Code(s): 29082562 (3) Hematuria Narrative/Plan: Urinary analysis highly suspect urinary tract infection. Patient is on antibiotics for the same. No complaints of hematuria today Current Visit: Yes Status: Acute Priority: High Code(s): R31.9 - HEMATURIA, UNSPECIFIED SNOMED Code(s): 15214492 (4) Small cell lung cancer Narrative/Plan: CT of the chest ordered, report reviewed. Nonspecific changes noted, nothing to suggest a progressive malignancy at this time. I will review the report with primary oncologist and report results to patient and family in the a.m. Current Visit: No Status: Chronic Priority: Medium Code(s): C34.90 - MALIGNANT NEOPLASM OF UNSP PART OF UNSP BRONCHUS OR LUNG SNOMED Code(s): 322553696 (5) Anxiety Narrative/Plan: Changed patient's Xanax to scheduled. We will titrate steroids Current Visit: Yes Status: Acute Priority: Medium Code(s): F41.9 - ANXIETY DISORDER, UNSPECIFIED SNOMED Code(s): 49566796 (6) Insomnia Narrative/Plan: Anti-anxiety medicines changed to scheduled, steroid dose has been reduced, a small dose of Benadryl when necessary has been added. Current Visit: Yes Status: Acute Priority: Medium Code(s): G47.00 - INSOMNIA, UNSPECIFIED SNOMED Code(s): 299834889
[2019-03-21] MEDS: ALPRAZolam 0.25 MG TAB PO SCH (15:51)
[2019-03-21] MEDS ORDERED: DEXAMETHASONE 4 MG TAB PO SCH (21:00)
[2019-03-21] MEDS: QUEtiapine 25 MG TAB PO SCH (21:08)
[2019-03-22] MEDS: ALPRAZolam 0.25 MG TAB PO SCH ×2 (00:18→08:13)
[2019-03-22] MEDS: LEVOTHYROXINE 75 MCG TAB PO SCH (05:52)
--- NOTE | 2019-03-22 06:18 | PN ---
PROGRESS NOTE DATE OF SERVICE: 03/21/2019 PRESENTING COMPLAINT: Tired. INTERVAL HISTORY: This patient treated for small cell lung cancer that appears to be in remission. Admitted with left lower lobe pneumonia. Eating better. Weakness is improving. Daughter at the bedside. Overall feeling better. REVIEW OF SYSTEMS: Done for constitutional, cardiovascular, GI, pulmonary; relevant findings as above. CURRENT MEDICATIONS: Current medications are reviewed that include IV cefepime and steroids as per Oncology. PHYSICAL EXAMINATION: On examination, temperature 97.8, pulse 85, respiratory 18, blood pressure 124/80, pulse ox 94% on 3 L. GENERAL APPEARANCE: Propped up, awake, a bit tired. EYES: Pupils equal. Conjunctivae normal. NECK: JVD not raised. Mass not palpable. RESPIRATORY: Effort increased. LUNGS: Decreased breath sounds. CARDIOVASCULAR: First and second sounds normal. No edema. ABDOMEN: Soft, nontender. Liver and spleen not palpable. PSYCHIATRY: Awake, answering questions. INVESTIGATIONS: White count 5.4, hemoglobin 11.7, potassium 4.6, BUN 16, creatinine 0.64. Urine culture negative. ASSESSMENT: 1. Left lower lobe pneumonia suspect gram-negative organism present on admission with clinical improvement. 2. Chronic obstructive pulmonary disease in an ex-smoker. 3. Chronic hypoxic respiratory failure from underlying chronic obstructive pulmonary disease. 4. Small cell lung cancer, status post chemoradiation, currently in remission. 5. 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 6. Infrarenal aortic aneurysm 4 cm. 7. Colonic diverticulosis, asymptomatic. 8. Gastroesophageal reflux disease. 9. Hyperlipidemia. 10.Essential hypertension. 11.Primary osteoarthritis multiple joints. 12.Benign prostatic hypertrophy. 13.Restless legs syndrome. 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 15.Chronic hemorrhoids. PLAN: Patient is doing better. Will give another 24 hours of IV antibiotics then can be switched to oral antibiotic. There is no obvious evidence of any metastatic involvement. Hence will stop the steroids for right now. The patient is doing well from pneumonia standpoint and he uses melatonin for sleeping. Hold off the Benadryl. MMODL / IJN: [id number] /
[2019-03-22] MEDS: FORMOTEROL FUMARATE 20 MCG/2 ML NEBU INHALATION SCH (07:41)
[2019-03-22] MEDS: IPRATROPIUM-ALBUTEROL 3 ML NEB INHALATION SCH ×2 (07:41→12:35)
[2019-03-22] MEDS: BUDESONIDE 0.5 MG/2 ML NEBU INHALATION SCH (07:41)
[2019-03-22 07:53] LABS: Anion Gap 7 mmol/L; Blood Urea Nitrogen 19 mg/dL (9-20); Calcium 9.5 mg/dL (8.4-10.2); Carbon Dioxide 25 mmol/L (22-30); Chloride 107 mmol/L (98-107); Glucose 111 mg/dL (74-99); Potassium 4.5 mmol/L (3.5-5.1); Sodium 139 mmol/L (137-145)
[2019-03-22] MEDS: CEFEPIME 2 GM in SODIUM CHLORIDE 0.9% 100 ML IVPB SCH (08:12)
[2019-03-22] MEDS: PRAMIPEXOLE 0.5 MG TAB PO PRN (08:13)
[2019-03-22] MEDS: LISINOPRIL 20 MG TAB PO SCH (08:13)
[2019-03-22] MEDS: levETIRAcetam 500 MG TAB PO SCH (08:13)
[2019-03-22] MEDS: ATORVASTATIN 80 MG TAB PO SCH (08:13)
[2019-03-22] MEDS: VIT A,C & E-LUTEIN-MINERALS 1 EACH TAB PO SCH (08:13)
[2019-03-22] MEDS: FLUoxetine HCL 20 MG CAP PO SCH (08:13)
[2019-03-22] MEDS: PANTOPRAZOLE 40 MG TABLET PO SCH (08:13)
[2019-03-22] MEDS: predniSONE 10 MG TAB PO SCH (08:13)
[2019-03-22] MEDS: TAMSULOSIN 0.4 MG CAP.ER.24H PO SCH (08:13)
[2019-03-22 08:49] LABS: T4, Free (Free Thyroxine) 1.24 ng/dL (0.78-2.19)
--- NOTE | 2019-03-22 10:48 | P.PN ---
Progress Note - Text Progress Note Date: 03/22/19 Pt has just complete WBRT last week, CT chest seems to be overall stable. It is reasonable to hold any treatment until completion of rehabilitation. Cont steroids at 4mg BID, taper Rx in med list
[2019-03-22] MEDS: SODIUM CHLORIDE 0.9% 1,000 ML IV SCH (12:18)
[2019-03-22 12:59] VITALS: BP 163/95; PULSE 79; RESP 18; TEMP 98.5
--- NOTE | 2019-03-22 13:03 | DS ---
DISCHARGE SUMMARY DATE OF ADMISSION: 03/20/2019. DATE OF DISCHARGE: 03/22/2019 FINAL DIAGNOSES: 1. Left lower lobe pneumonia suspect gram-negative organism, POA. 2. Chronic obstructive pulmonary disease in an ex-smoker. 3. Chronic hypoxic respiratory failure with underlying chronic obstructive pulmonary disease. 4. Small cell lung cancer, status post chemo and radiation, currently in remission. 5. Infrarenal aortic aneurysm 4 cm. 6. Colonic diverticulosis asymptomatic. 7. Gastroesophageal reflux disease. 8. Hyperlipidemia. 9. Essential hypertension. 10.Primary osteoarthritis in multiple joints. 11.Benign prostatic hypertrophy. 12.Restless legs syndrome. 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 14.Chronic hemorrhoids. HOSPITAL COURSE: This patient has small-cell lung cancer, status post chemo radiation under remission, presented weak, tired, found to have a left lobe pneumonia, was given antibiotics to which he is doing much better, not tolerating his diet. Sitting up in a chair. White count is down. PHYSICAL EXAMINATION: Afebrile, pulse 75, respirations 20, blood pressure 121/80, pulse ox 96% on 3 L. LUNGS: Decreased breath sounds. PSYCH: Answering questions. INVESTIGATIONS: White count 5.4, hemoglobin 11.7, potassium 4.5. CONSULTATION: Dr. Whitehead from Oncology. Additionally, patient did have a CT scan of the chest showing what appears to be chronic changes. The patient otherwise doing well, tolerating a diet. Will follow up with Oncology as an outpatient. Patient currently going to the rehab. DISCHARGE MEDICATIONS: 1. Lipitor 80 mg p.o. daily. 2. CoQ 10/200 mg p.o. daily. 3. Levoxyl 125 mcg a day. 4. Prozac 40 mg a day. 5. Breo Ellipta 200/25 one puff daily. 6. Centrum Silver 1 tablet p.o. daily. 7. Protonix 40 mg p.o. daily. 8. Seroquel 25 mg p.o. q.h.s. 9. Ramipril 10 mg p.o. daily. 10.Flomax 0.4 mg p.o. daily. 11.Mirapex 0.5 mg p.o. t.i.d. p.r.n. 12.Prednisone taper. 13.DuoNeb t.i.d. 14.Keppra 500 mg p.o. q.12. 15.Xanax 0.25 p.o. t.i.d. p.r.n. 16.Ceftin 500 mg p.o. b.i.d. 10 tablets. DISPOSITION: [facility]. FOLLOW UP: Follow up with Dr. Unger at [facility]. Follow up with Dr. Leonardo Gutierrez after discharge from [facility]. Follow up with Dr. Ann in 2 weeks. CBC, BMP in 3-5 days. MMODL / IJN: [id number] /
[2019-03-23] MEDS ORDERED: LEVOTHYROXINE 125 MCG TAB PO SCH (06:30)
== END 2019-03-22 15:45 | DRG 177 ==
LOC: EC 13:52 → 3NMEDONC 16:07
PROVIDERS: ADMIT Hospitalist; ATTEND Hospitalist
DX: J15.6 Pneumonia due to other Gram-negative bacteria (principal); G93.6 Cerebral edema; C79.31 Secondary malignant neoplasm of brain; J44.0 Chronic obstructive pulmonary disease with (acute) lower respiratory infection; J96.11 Chronic respiratory failure with hypoxia; E03.9 Hypothyroidism, unspecified; E78.5 Hyperlipidemia, unspecified; E86.0 Dehydration; F41.9 Anxiety disorder, unspecified; G20 Parkinson's disease; G25.81 Restless legs syndrome; G47.00 Insomnia, unspecified; G62.0 Drug-induced polyneuropathy; T45.1X5A Adverse effect of antineoplastic and immunosuppressive drugs, initial encounter; H40.9 Unspecified glaucoma; I10 Essential (primary) hypertension; I71.9 Aortic aneurysm of unspecified site, without rupture; K21.9 Gastro-esophageal reflux disease without esophagitis; K22.70 Barrett's esophagus without dysplasia; K57.30 Diverticulosis of large intestine without perforation or abscess without bleeding; K64.9 Unspecified hemorrhoids; M15.9 Polyosteoarthritis, unspecified; N40.0 Benign prostatic hyperplasia without lower urinary tract symptoms; Z79.890 Hormone replacement therapy; Z79.899 Other long term (current) drug therapy; Z85.118 Personal history of other malignant neoplasm of bronchus and lung; Z87.891 Personal history of nicotine dependence; Z92.21 Personal history of antineoplastic chemotherapy; Z92.3 Personal history of irradiation; Z99.81 Dependence on supplemental oxygen; Z90.49 Acquired absence of other specified parts of digestive tract; Z91.018 Allergy to other foods; R31.9 Hematuria, unspecified
CPT/HCPCS: 36415; 70450; 71046; 71260; 80048; 80053; 81001; 83605; 83735; 84439; 84443; 84484; 85025; 85610; 85730; 87045; 87046; 87086; 93005; 94640; 94760; 96361; 96365; 99285